=== PATIENT | female | born 1965 | race American Indian/Alaskan Native ===

== ENCOUNTER 2020-09-14 09:34 | Emergency (ER) | payer SELFPAY ==
[2020-09-14 10:24] LABS: Hematocrit 39.2 % (30.3-42.9); Hemoglobin 12.7 gm/dl (10.1-14.3); Mean Corpuscular HGB Conc 32 % (30-34); Mean Corpuscular Volume 82 fl (79-97); Platelet Count 362 K/mm3 (140-440); Red Blood Count 4.79 M/mm3 (3.65-5.03)
[2020-09-14 10:39] LABS: Bilirubin,Urine NEG (Negative); Blood,Urine NEG (Negative); Color,Urine Yellow (Yellow); Mucus,Urine 3+ /HPF
[2020-09-14 10:40] LABS: RBC,Urine < 1.0 /HPF (0.0-6.0)
[2020-09-14 10:41] LABS: Red Cell Distribution Width 25.7 % (13.2-15.2)
[2020-09-14 10:53] LABS: Alanine Aminotransferase 7 units/L (7-56); Albumin 4.1 g/dL (3.9-5); Blood Urea Nitrogen 12 mg/dL (7-17); Calcium 9.1 mg/dL (8.4-10.2); Hemolysis Index 3
[2020-09-14 10:54] LABS: BUN/Creatinine Ratio 20
[2020-09-14 11:30] LABS: Anisocytosis 2+; Basophils % (Manual) 0 % (0.0-1.8); Eosinophils % (Manual) 0 % (0.0-4.3); Hypochromasia 1+; Total Cells Counted 100
[2020-09-14 11:31] LABS: Platelet Estimate Consistent w Auto; Target Cells Rare
[2020-09-14] MEDS ORDERED: SODIUM CHLORIDE 0.9% 1000 ML 1,000 ML IV ONE (11:33)
[2020-09-14] MEDS ORDERED: ONDANSETRON 4 MG/2 ML INJ IV ONE (11:33)
[2020-09-14] MEDS ORDERED: MORPHINE 4 MG/1 ML INJ IV ONE ×2 (11:33→13:13)
--- NOTE | 2020-09-14 11:36 | Emergency Department Report ---
ED General Adult HPI - General Chief complaint: Abdominal Pain Stated complaint: CHRONS Time Seen by Provider: 09/14/20 11:09 Source: patient Mode of arrival: Ambulatory Limitations: No Limitations - History of Present Illness Initial comments: Patient presents to the emergency department with a chief complaint of abdominal pain that has been present for the last couple of days. Patient states she has a history of Crohn's disease and states this is very consistent with her flareups. She does endorse having some blood in her stool and also states the stool has an odor to it. Patient denies any chest pain, shortness breath, headache. -: Sudden Location: abdomen Radiation: non-radiation Severity scale (0 -10): 7 Quality: stabbing Consistency: constant Improves with: none Worsens with: none Associated Symptoms: denies other symptoms Treatments Prior to Arrival: none - Related Data Previous Rx's Medication Instructions Recorded Last Taken Type Amoxicillin/Potassium Clav 1 each PO BID #14 tablet 09/14/20 Unknown Rx [Augmentin 875-125 Tablet] HYDROcodone/APAP 7.5-325 [Kohler 1 each PO Q6HR PRN #15 tablet 09/14/20 Unknown Rx 7.5/325] Promethazine [Phenergan TAB] 25 mg PO Q6HR PRN #20 tab 09/14/20 Unknown Rx Allergies Allergy/AdvReac Type Severity Reaction Status Date / Time hydromorphone [From Dilaudid] Allergy Unknown Verified 09/14/20 09:39 ketorolac [From Toradol] Allergy Unknown Verified 09/14/20 09:39 Sulfa (Sulfonamide Allergy Unknown Verified 09/14/20 09:39 Antibiotics) ED Review of Systems ROS: Stated complaint: CHRONS Other details as noted in HPI Comment: All other systems reviewed and negative Constitutional: denies: chills, fever Eyes: denies: eye pain, eye discharge, vision change ENT: denies: ear pain, throat pain Respiratory: denies: cough, shortness of breath, wheezing Cardiovascular: denies: chest pain, palpitations Endocrine: no symptoms reported Gastrointestinal: abdominal pain. denies: nausea, diarrhea Genitourinary: denies: urgency, dysuria, discharge Musculoskeletal: denies: back pain, joint swelling, arthralgia Skin: denies: rash, lesions Neurological: denies: headache, weakness, paresthesias Psychiatric: denies: anxiety, depression Hematological/Lymphatic: denies: easy bleeding, easy bruising ED Past Medical Hx - Past Medical History Previous Medical History?: Yes Hx Hypertension: Yes Additional medical history: Crohn's disease - Surgical History Past Surgical History?: No - Social History Smoking Status: Former Smoker - Medications Home Medications: Home Medications Medication Instructions Recorded Confirmed Last Taken Type Amoxicillin/Potassium Clav 1 each PO BID #14 tablet 09/14/20 Unknown Rx [Augmentin 875-125 Tablet] HYDROcodone/APAP 7.5-325 [Kohler 1 each PO Q6HR PRN #15 tablet 09/14/20 Unknown Rx 7.5/325] Promethazine [Phenergan TAB] 25 mg PO Q6HR PRN #20 tab 09/14/20 Unknown Rx ED Physical Exam - General Limitations: No Limitations General appearance: alert, in no apparent distress - Head Head exam: Present: atraumatic, normocephalic - Eye Eye exam: Present: normal appearance, PERRL, EOMI - ENT ENT exam: Present: mucous membranes moist - Neck Neck exam: Present: normal inspection - Respiratory Respiratory exam: Present: normal lung sounds bilaterally. Absent: respiratory distress - Cardiovascular Cardiovascular Exam: Present: regular rate, normal rhythm. Absent: systolic murmur, diastolic murmur, rubs, gallop - GI/Abdominal GI/Abdominal exam: Present: soft, normal bowel sounds. Absent: distended, tenderness - Extremities Exam Extremities exam: Present: normal inspection - Back Exam Back exam: Present: normal inspection - Neurological Exam Neurological exam: Present: alert, oriented X3, CN II-XII intact. Absent: motor sensory deficit - Psychiatric Psychiatric exam: Present: normal affect, normal mood - Skin Skin exam: Present: warm, dry, intact, normal color. Absent: rash ED Course Vital Signs 09/14/20 09/14/20 09:39 11:00 Temperature 98.0 F Pulse Rate 115 H Respiratory 18 Rate Blood Pressure 144/106 Blood Pressure 160/97 [Right] O2 Sat by Pulse 98 Oximetry ED Medical Decision Making - Lab Data Result diagrams: 09/14/20 10:10 09/14/20 10:10 Lab Results 09/14/20 09/14/20 09/14/20 Range/Units 10:10 10:10 Unknown WBC 12.3 H (4.5-11.0) K/mm3 RBC 4.79 (3.65-5.03) M/mm3 Hgb 12.7 (10.1-14.3) gm/dl Hct 39.2 (30.3-42.9) % MCV 82 (79-97) fl MCH 27 L (28-32) pg MCHC 32 (30-34) % RDW 25.7 H (13.2-15.2) % Plt Count 362 (140-440) K/mm3 Add Manual Diff Complete Total Counted 100 Seg Neuts % (Manual) 87.0 H (40.0-70.0) % Band Neutrophils % 8.0 % Lymphocytes % (Manual) 1.0 L (13.4-35.0) % Reactive Lymphs % (Man) 0 % Monocytes % (Manual) 4.0 (0.0-7.3) % Eosinophils % (Manual) 0 (0.0-4.3) % Basophils % (Manual) 0 (0.0-1.8) % Metamyelocytes % 0 % Myelocytes % 0 % Promyelocytes % 0 % Blast Cells % 0 % Nucleated RBC % Not Reportable Seg Neutrophils # Man 10.7 H (1.8-7.7) K/mm3 Band Neutrophils # 1.0 K/mm3 Lymphocytes # (Manual) 0.1 L (1.2-5.4) K/mm3 Abs React Lymphs (Man) 0.0 K/mm3 Monocytes # (Manual) 0.5 (0.0-0.8) K/mm3 Eosinophils # (Manual) 0.0 (0.0-0.4) K/mm3 Basophils # (Manual) 0.0 (0.0-0.1) K/mm3 Metamyelocytes # 0.0 K/mm3 Myelocytes # 0.0 K/mm3 Promyelocytes # 0.0 K/mm3 Blast Cells # 0.0 K/mm3 WBC Morphology Not Reportable Hypersegmented Neuts Not Reportable Hyposegmented Neuts Not Reportable Hypogranular Neuts Not Reportable Smudge Cells Not Reportable Toxic Granulation Not Reportable Toxic Vacuolation Not Reportable Dohle Bodies Not Reportable Pelger-Huet Anomaly Not Reportable Rey Rods Not Reportable Platelet Estimate Consistent w auto Clumped Platelets Not Reportable Plt Clumps, EDTA Not Reportable Large Platelets Not Reportable Giant Platelets Not Reportable Platelet Satelliting Not Reportable Plt Morphology Comment Not Reportable RBC Morphology Not Reportable Dimorphic RBCs Not Reportable Polychromasia Not Reportable Hypochromasia 1+ Poikilocytosis Not Reportable Anisocytosis 2+ Microcytosis 1+ Macrocytosis Not Reportable Spherocytes Not Reportable Pappenheimer Bodies Not Reportable Sickle Cells Not Reportable Target Cells Rare Tear Drop Cells Not Reportable Ovalocytes Not Reportable Helmet Cells Not Reportable Lopez-[place] Bodies Not Reportable [place] Rings Not Reportable Ela Cells Not Reportable Bite Cells Not Reportable Crenated Cell Not Reportable Elliptocytes Not Reportable Acanthocytes (Spur) Not Reportable Rouleaux Not Reportable Hemoglobin C Crystals Not Reportable Schistocytes Not Reportable Malaria parasites Not Reportable Segun Bodies Not Reportable Hem Pathologist Commnt No Sodium 139 (137-145) mmol/L Potassium 3.5 L (3.6-5.0) mmol/L Chloride 102.5 (98-107) mmol/L Carbon Dioxide 20 L (22-30) mmol/L Anion Gap 20 mmol/L BUN 12 (7-17) mg/dL Creatinine 0.6 (0.6-1.2) mg/dL Estimated GFR > 60 ml/min BUN/Creatinine Ratio 20 % Glucose 142 H (65-100) mg/dL Calcium 9.1 (8.4-10.2) mg/dL Total Bilirubin 0.20 (0.1-1.2) mg/dL AST 10 (5-40) units/L ALT 7 (7-56) units/L Alkaline Phosphatase 85 (35-129) units/L Total Protein 7.7 (6.3-8.2) g/dL Albumin 4.1 (3.9-5) g/dL Albumin/Globulin Ratio 1.1 % Urine Color Yellow (Yellow) Urine Turbidity Clear (Clear) Urine pH 5.0 (5.0-7.0) Ur Specific Gray 1.028 (1.003-1.030) Urine Protein 30 mg/dl (Negative) mg/dL Urine Glucose (UA) Neg (Negative) mg/dL Urine Ketones Neg (Negative) mg/dL Urine Blood Neg (Negative) Urine Nitrite Neg (Negative) Urine Bilirubin Neg (Negative) Urine Urobilinogen 2.0 (<2.0) mg/dL Ur Leukocyte Esterase Neg (Negative) Urine WBC (Auto) 2.0 (0.0-6.0) /HPF Urine RBC (Auto) < 1.0 (0.0-6.0) /HPF U Epithel Cells (Auto) 2.0 (0-13.0) /HPF Urine Mucus 3+ /HPF - Medical Decision Making The patient states she is allergic to Dilaudid but has had morphine in the past without issue and states that is what she normally gets for her Crohn's flareups. Discussed CT of abdomen but the patient states she has had some many CTs in the past and will rather not have a CT done Critical care attestation.: If time is entered above; I have spent that time in minutes in the direct care of this critically ill patient, excluding procedure time. ED Disposition Clinical Impression: Abdominal pain Disposition: DC-01 TO HOME OR SELFCARE Is pt being admited?: No Does the pt Need Aspirin: No Condition: Stable Instructions: Abdominal Pain (ED) Additional Instructions: return if worse Referrals: PRIMARY MD NAREN [Primary Care Provider] - 3-5 Days BARRETT ROJAS MD [Staff Physician] - 3-5 Days Time of Disposition: 13:33
[2020-09-14] MEDS ORDERED: diphenhydrAMINE 50 MG/ML VIAL ONE (11:56)
--- NOTE | 2020-09-14 12:52 | XRay Report ---
CHEST / ABDOMEN 2 VIEWS INDICATION / CLINICAL INFORMATION: abdominal pain. COMPARISON: None available. FINDINGS: SUPPORT DEVICES: None. HEART / MEDIASTINUM: No significant abnormality. LUNGS / PLEURA: No significant pulmonary or pleural abnormality. No pneumothorax. TUBES / LINES: None. BOWEL GAS PATTERN: No obstructive gas pattern. Constipation is present. FREE AIR / EXTRALUMINAL GAS: None seen. ADDITIONAL FINDINGS: No significant additional findings. IMPRESSION: 1. No acute findings. Signer Name: Miah Pablo MD Signed: 09/14/2020 12:47 PM Workstation Name: [id number]
[2020-09-14] MEDS ORDERED: diphenhydrAMINE 50 MG/ML VIAL IV ONE (14:19)
[2020-09-14 14:52] VITALS: BP 130/89
== END 2020-09-14 14:53 | disposition home or self-care (01) ==
LOC: ED 09:34
DX: R10.9 Unspecified abdominal pain (principal); I10 Essential (primary) hypertension; K50.90 Crohn's disease, unspecified, without complications; Z87.891 Personal history of nicotine dependence; Z88.6 Allergy status to analgesic agent; Z88.8 Allergy status to other drugs, medicaments and biological substances
CPT/HCPCS: 36415; 74022; 80053; 81001; 85007; 85025; 96361; 96374; 96375; 99284; J1200; J2270; J2405; J7030

== ENCOUNTER 2020-09-20 04:24 | Observation (INO) | payer MEDICAID, OTHER ==
[2020-09-20 06:13] LABS: Hematocrit 39.8 % (30.3-42.9); Hemoglobin 12.9 gm/dl (10.1-14.3); Mean Corpuscular HGB Conc 32 % (30-34); Mean Corpuscular Volume 83 fl (79-97); Platelet Count 441 K/mm3 (140-440); Red Blood Count 4.83 M/mm3 (3.65-5.03)
[2020-09-20 06:16] LABS: Red Cell Distribution Width 24.2 % (13.2-15.2)
--- NOTE | 2020-09-20 06:25 | XRay Report ---
CHEST 1 VIEW 09/20/2020 5:17 AM INDICATION / CLINICAL INFORMATION: Chest Pain. Crohn's flareup. Shortness of breath. COMPARISON: 09/14/20 FINDINGS: SUPPORT DEVICES: None. HEART / MEDIASTINUM: No significant abnormality. LUNGS / PLEURA: Suboptimal inspiration with low lung volumes and mild bibasilar atelectasis. No pneum othorax. ADDITIONAL FINDINGS: No significant additional findings. IMPRESSION: 1. Low lung volumes with bibasilar atelectasis. Signer Name: Antonio Heard MD Signed: 09/20/2020 6:20 AM Workstation Name: [id number]
[2020-09-20 08:05] LABS: Alanine Aminotransferase 7 units/L (7-56); Albumin 3.1 g/dL (3.9-5); Blood Urea Nitrogen 13 mg/dL (7-17); Calcium 8.6 mg/dL (8.4-10.2); Hemolysis Index 73
[2020-09-20 08:06] LABS: BUN/Creatinine Ratio 19
[2020-09-20] MEDS ORDERED: SODIUM CHLORIDE 0.9% 1000 ML 2,000 ML IV ONE (09:00)
[2020-09-20] MEDS ORDERED: POTASSIUM CHLORIDE ER 20 MEQ TAB PO ONE (09:00)
[2020-09-20] MEDS ORDERED: ONDANSETRON 4 MG/2 ML INJ IV ONE (09:00)
[2020-09-20] MEDS ORDERED: diphenhydrAMINE 50 MG/ML VIAL IV ONE (09:00)
[2020-09-20] MEDS ORDERED: MORPHINE 4 MG/1 ML INJ IV ONE ×2 (09:00→10:51)
--- NOTE | 2020-09-20 09:01 | Emergency Department Report ---
ED General Adult HPI - General Chief complaint: Abdominal Pain Stated complaint: ABDOMINAL PAIN PUI?: No Time Seen by Provider: 09/20/20 08:24 Source: patient, RN notes reviewed, old records reviewed Mode of arrival: Ambulatory Limitations: No Limitations - History of Present Illness Initial comments: The patient was evaluated in the emergency department for symptoms described in the history of present illness. He/she was evaluated in the context of the global COVID-19 pandemic, which necessitated consideration that the patient might be at risk for infection with the virus that causes COVID-19. Institutional protocols and algorithms that pertain to the evaluation of patients at risk for COVID-19 are in a state of rapid change based on information released by regulatory bodies including the CDC and federal and state organizations. These policies and algorithms were followed during the patient's care in the emergency department. Please note that these policies, procedures and recommendations changed on a rapid basis. Patient is a 55-year-old female. She is not known to myself previously. She moved here from [place] 1 month ago. She reports a history of Crohn's disease. She is not currently on steroids or immune modulating medication. She used to live near [facility]. While in [place], she had been hospitalized at [facility], [facility], and [facility]. She presents to the ER today with complaints of diffuse abdominal pain. Symptoms present for the past 7 days. No fever. Positive nausea and vomiting. Positive bloody stool. No dysuria. No headache or neck pain. No cough. Positive chest tightness for 2 days. No DVT or pulmonary embolism risk factors. Last colonoscopy was 2 years ago. This was in [place]. She is not quite sure of the results. Positive diffuse myalgias and body aches. Patient seen in this hospital 6 days ago for similar symptoms, discharged with pain medication, nausea medication, and antibiotics. Patient reports worsening symptoms. Not able to keep anything down, not able to obtain close outpatient follow-up. -: Gradual, days(s) Location: abdomen Quality: aching Consistency: constant Improves with: medication, rest Worsens with: movement - Related Data Previous Rx's Medication Instructions Recorded Last Taken Type Amoxicillin/Potassium Clav 1 each PO BID #14 tablet 09/14/20 Unknown Rx [Augmentin 875-125 Tablet] HYDROcodone/APAP 7.5-325 [[place] 1 each PO Q6HR PRN #15 tablet 09/14/20 Unknown Rx 7.5/325] Promethazine [Phenergan TAB] 25 mg PO Q6HR PRN #20 tab 09/14/20 Unknown Rx Allergies Allergy/AdvReac Type Severity Reaction Status Date / Time hydromorphone [From Dilaudid] Allergy Unknown Verified 09/14/20 09:39 ketorolac [From Toradol] Allergy Unknown Verified 09/14/20 09:39 Sulfa (Sulfonamide Allergy Unknown Verified 09/14/20 09:39 Antibiotics) ED Review of Systems ROS: Stated complaint: ABDOMINAL PAIN Other details as noted in HPI Constitutional: malaise, weakness Eyes: denies: eye discharge ENT: denies: epistaxis Respiratory: denies: wheezing Cardiovascular: denies: palpitations, syncope Gastrointestinal: abdominal pain, nausea, vomiting, hematochezia. denies: constipation, melena Genitourinary: denies: dysuria Musculoskeletal: myalgia Skin: denies: lesions Neurological: weakness Psychiatric: anxiety Hematological/Lymphatic: denies: easy bleeding ED Past Medical Hx - Past Medical History Previous Medical History?: Yes Hx Hypertension: Yes Additional medical history: Crohn's disease - Surgical History Past Surgical History?: Yes Additional Surgical History: Tonsils, CSection, Knee - Social History Smoking Status: Never Smoker - Medications Home Medications: Home Medications Medication Instructions Recorded Confirmed Last Taken Type Amoxicillin/Potassium Clav 1 each PO BID #14 tablet 09/14/20 Unknown Rx [Augmentin 875-125 Tablet] HYDROcodone/APAP 7.5-325 [[place] 1 each PO Q6HR PRN #15 tablet 09/14/20 Unknown Rx 7.5/325] Promethazine [Phenergan TAB] 25 mg PO Q6HR PRN #20 tab 09/14/20 Unknown Rx ED Physical Exam - General Limitations: No Limitations General appearance: alert, anxious, in distress, obese - Head Head exam: Present: atraumatic, normocephalic - Eye Eye exam: Present: normal appearance, EOMI. Absent: nystagmus - ENT ENT exam: Present: normal exam, normal orophraynx, mucous membranes moist, normal external ear exam - Neck Neck exam: Present: normal inspection, full ROM. Absent: tenderness, meningismus - Respiratory Respiratory exam: Present: normal lung sounds bilaterally. Absent: respiratory distress, wheezes, rales, rhonchi, stridor, decreased breath sounds - Cardiovascular Cardiovascular Exam: Present: normal rhythm, tachycardia, normal heart sounds. Absent: systolic murmur, diastolic murmur, rubs, gallop - GI/Abdominal GI/Abdominal exam: Present: soft, tenderness. Absent: distended, guarding, rebound, rigid, pulsatile mass - Rectal Rectal exam: Present: normal inspection, normal rectal tone, heme (+) stool, tenderness, other (Anal fissure noted at 6:00. Chaperoned by nurse Hellen Velasquez. Brown/bloody stool.). Absent: black stool, bloody stool - Extremities Exam Extremities exam: Present: normal inspection, full ROM, other (2+ pulses noted in the bilateral upper and lower extremities. There is no palpable cord. negative Homans sign. Muscular compartments are soft. The pelvis is stable.). Absent: pedal edema, calf tenderness - Back Exam Back exam: Present: normal inspection, full ROM. Absent: tenderness, CVA tenderness (R), CVA tenderness (L), paraspinal tenderness, vertebral tenderness - Neurological Exam Neurological exam: Present: alert, other (No facial droop. Tongue midline. Extraocular movements intact bilaterally. Facial sensation intact to light touch in V1, V2, V3 distribution bilaterally. 5 and a 5 strength in 4 extremities. Sensation intact to light touch in 4 extremities.) - Psychiatric Psychiatric exam: Present: anxious - Skin Skin exam: Present: warm, dry, intact, normal color. Absent: rash ED Course Vital Signs 09/20/20 09/20/20 09/20/20 04:52 09:01 10:31 Temperature 98.6 F Pulse Rate 119 H 110 H 103 H Respiratory 18 28 H 29 H Rate Blood Pressure 145/93 119/82 199/97 O2 Sat by Pulse 96 96 95 Oximetry 09/20/20 09/20/20 09/20/20 10:41 10:51 11:00 Temperature Pulse Rate 103 H 103 H 105 H Respiratory 29 H 10 L 24 Rate Blood Pressure 199/97 199/97 199/97 O2 Sat by Pulse 95 96 96 Oximetry 09/20/20 09/20/20 09/20/20 11:11 11:21 11:31 Temperature Pulse Rate 102 H 102 H 105 H Respiratory 22 25 H 18 Rate Blood Pressure 190/97 190/97 190/97 O2 Sat by Pulse 94 95 Oximetry - EJ/Peripheral Line Neck L Time Out Performed: Yes Indications: nurses unable to establis Skin Cleansed in Sterile Fashion: Yes Size: 20 Dressing Placed: Tegaderm Patient Tolerated Procedure: well ED Medical Decision Making - Lab Data Result diagrams: 09/20/20 05:32 09/20/20 06:48 Vital Signs 09/20/20 09/20/20 09/20/20 04:52 09:01 10:31 Temperature 98.6 F Pulse Rate 119 H 110 H 103 H Respiratory 18 28 H 29 H Rate Blood Pressure 145/93 119/82 199/97 O2 Sat by Pulse 96 96 95 Oximetry Lab Results 09/20/20 09/20/20 09/20/20 Range/Units 05:32 06:48 06:48 WBC 15.0 H (4.5-11.0) K/mm3 RBC 4.83 (3.65-5.03) M/mm3 Hgb 12.9 (10.1-14.3) gm/dl Hct 39.8 (30.3-42.9) % MCV 83 (79-97) fl MCH 27 L (28-32) pg MCHC 32 (30-34) % RDW 24.2 H (13.2-15.2) % Plt Count 441 H (140-440) K/mm3 Add Manual Diff Complete Total Counted 100 Seg Neuts % (Manual) 72.0 H (40.0-70.0) % Band Neutrophils % 2.0 % Lymphocytes % (Manual) 13.0 L (13.4-35.0) % Reactive Lymphs % (Man) 0 % Monocytes % (Manual) 10.0 H (0.0-7.3) % Eosinophils % (Manual) 1.0 (0.0-4.3) % Basophils % (Manual) 0 (0.0-1.8) % Metamyelocytes % 2.0 % Myelocytes % 0 % Promyelocytes % 0 % Blast Cells % 0 % Nucleated RBC % 1.0 H (0.0-0.9) % Seg Neutrophils # Man 10.8 H (1.8-7.7) K/mm3 Band Neutrophils # 0.3 K/mm3 Lymphocytes # (Manual) 2.0 (1.2-5.4) K/mm3 Abs React Lymphs (Man) 0.0 K/mm3 Monocytes # (Manual) 1.5 H (0.0-0.8) K/mm3 Eosinophils # (Manual) 0.2 (0.0-0.4) K/mm3 Basophils # (Manual) 0.0 (0.0-0.1) K/mm3 Metamyelocytes # 0.3 K/mm3 Myelocytes # 0.0 K/mm3 Promyelocytes # 0.0 K/mm3 Blast Cells # 0.0 K/mm3 WBC Morphology Not Reportable Hypersegmented Neuts Not Reportable Hyposegmented Neuts Not Reportable Hypogranular Neuts Not Reportable Smudge Cells Not Reportable Toxic Granulation Not Reportable Toxic Vacuolation Not Reportable Dohle Bodies Not Reportable Pelger-Huet Anomaly Not Reportable Rey Rods Not Reportable Platelet Estimate Consistent w auto Clumped Platelets Not Reportable Plt Clumps, EDTA Not Reportable Large Platelets Not Reportable Giant Platelets Not Reportable Platelet Satelliting Not Reportable Plt Morphology Comment Not Reportable RBC Morphology Not Reportable Dimorphic RBCs Not Reportable Polychromasia Not Reportable Hypochromasia 1+ Poikilocytosis Not Reportable Anisocytosis 2+ Microcytosis Not Reportable Macrocytosis Not Reportable Spherocytes Not Reportable Pappenheimer Bodies Not Reportable Sickle Cells Not Reportable Target Cells Few Tear Drop Cells Not Reportable Ovalocytes Not Reportable Helmet Cells Not Reportable [place] Bodies Not Reportable [place] Rings Not Reportable Ela Cells Not Reportable Bite Cells Not Reportable Crenated Cell Not Reportable Elliptocytes Not Reportable Acanthocytes (Spur) Not Reportable Rouleaux Not Reportable Hemoglobin C Crystals Not Reportable Schistocytes Not Reportable Malaria parasites Not Reportable Segun Bodies Not Reportable Hem Pathologist Commnt No Sodium 134 L (137-145) mmol/L Potassium 3.3 L (3.6-5.0) mmol/L Chloride 94.0 L (98-107) mmol/L Carbon Dioxide 27 (22-30) mmol/L Anion Gap 16 mmol/L BUN 13 (7-17) mg/dL Creatinine 0.7 (0.6-1.2) mg/dL Estimated GFR > 60 ml/min BUN/Creatinine Ratio 19 % Glucose 135 H (65-100) mg/dL Calcium 8.6 (8.4-10.2) mg/dL Magnesium 1.90 (1.7-2.3) mg/dL Total Bilirubin 0.20 (0.1-1.2) mg/dL AST 13 (5-40) units/L ALT 7 (7-56) units/L Alkaline Phosphatase 69 (35-129) units/L Total Creatine Kinase 41 (30-135) units/L Troponin T < 0.010 (0.00-0.029) ng/mL Total Protein 7.2 (6.3-8.2) g/dL Albumin 3.1 L (3.9-5) g/dL Albumin/Globulin Ratio 0.8 % Lipase 28 (13-60) units/L Urine Color (Yellow) Urine Turbidity (Clear) Urine pH (5.0-7.0) Ur Specific [place] (1.003-1.030) Urine Protein (Negative) mg/dL Urine Glucose (UA) (Negative) mg/dL Urine Ketones (Negative) mg/dL Urine Blood (Negative) Urine Nitrite (Negative) Urine Bilirubin (Negative) Urine Urobilinogen (<2.0) mg/dL Ur Leukocyte Esterase (Negative) Urine WBC (Auto) (0.0-6.0) /HPF Urine RBC (Auto) (0.0-6.0) /HPF U Epithel Cells (Auto) (0-13.0) /HPF Urine Mucus /HPF 09/20/ Range/Units 08:59 WBC (4.5-11.0) K/mm3 RBC (3.65-5.03) M/mm3 Hgb (10.1-14.3) gm/dl Hct (30.3-42.9) % MCV (79-97) fl MCH (28-32) pg MCHC (30-34) % RDW (13.2-15.2) % Plt Count (140-440) K/mm3 Add Manual Diff Total Counted Seg Neuts % (Manual) (40.0-70.0) % Band Neutrophils % % Lymphocytes % (Manual) (13.4-35.0) % Reactive Lymphs % (Man) % Monocytes % (Manual) (0.0-7.3) % Eosinophils % (Manual) (0.0-4.3) % Basophils % (Manual) (0.0-1.8) % Metamyelocytes % % Myelocytes % % Promyelocytes % % Blast Cells % % Nucleated RBC % (0.0-0.9) % Seg Neutrophils # Man (1.8-7.7) K/mm3 Band Neutrophils # K/mm3 Lymphocytes # (Manual) (1.2-5.4) K/mm3 Abs React Lymphs (Man) K/mm3 Monocytes # (Manual) (0.0-0.8) K/mm3 Eosinophils # (Manual) (0.0-0.4) K/mm3 Basophils # (Manual) (0.0-0.1) K/mm3 Metamyelocytes # K/mm3 Myelocytes # K/mm3 Promyelocytes # K/mm3 Blast Cells # K/mm3 WBC Morphology Hypersegmented Neuts Hyposegmented Neuts Hypogranular Neuts Smudge Cells Toxic Granulation Toxic Vacuolation Dohle Bodies Pelger-Huet Anomaly Rey Rods Platelet Estimate Clumped Platelets Plt Clumps, EDTA Large Platelets Giant Platelets Platelet Satelliting Plt Morphology Comment RBC Morphology Dimorphic RBCs Polychromasia Hypochromasia Poikilocytosis Anisocytosis Microcytosis Macrocytosis Spherocytes Pappenheimer Bodies Sickle Cells Target Cells Tear Drop Cells Ovalocytes Helmet Cells Lopez-[place] Bodies [place] Rings Ela Cells Bite Cells Crenated Cell Elliptocytes Acanthocytes (Spur) Rouleaux Hemoglobin C Crystals Schistocytes Malaria parasites Segun Bodies Hem Pathologist Commnt Sodium (137-145) mmol/L Potassium (3.6-5.0) mmol/L Chloride (98-107) mmol/L Carbon Dioxide (22-30) mmol/L Anion Gap mmol/L BUN (7-17) mg/dL Creatinine (0.6-1.2) mg/dL Estimated GFR ml/min BUN/Creatinine Ratio % Glucose (65-100) mg/dL Calcium (8.4-10.2) mg/dL Magnesium (1.7-2.3) mg/dL Total Bilirubin (0.1-1.2) mg/dL AST (5-40) units/L ALT (7-56) units/L Alkaline Phosphatase (35-129) units/L Total Creatine Kinase (30-135) units/L Troponin T (0.00-0.029) ng/mL Total Protein (6.3-8.2) g/dL Albumin (3.9-5) g/dL Albumin/Globulin Ratio % Lipase (13-60) units/L Urine Color Yellow (Yellow) Urine Turbidity Clear (Clear) Urine pH 5.0 (5.0-7.0) Ur Specific [place] 1.027 (1.003-1.030) Urine Protein 30 mg/dl (Negative) mg/dL Urine Glucose (UA) Neg (Negative) mg/dL Urine Ketones Neg (Negative) mg/dL Urine Blood Neg (Negative) Urine Nitrite Neg (Negative) Urine Bilirubin Neg (Negative) Urine Urobilinogen < 2.0 (<2.0) mg/dL Ur Leukocyte Esterase Tr (Negative) Urine WBC (Auto) 1.0 (0.0-6.0) /HPF Urine RBC (Auto) < 1.0 (0.0-6.0) /HPF U Epithel Cells (Auto) 1.0 (0-13.0) /HPF Urine Mucus 1+ /HPF - EKG Data -: EKG Interpreted by Ga EKG shows normal: sinus rhythm Rate: tachycardia - EKG Data When compared to previous EKG there are: previous EKG unavailable 09/20/20 10:36 Sinus rhythm, tachycardia, 115 bpm, normal axis, QTC 495 ms, borderline left ventricular hypertrophy and atrial enlargement. This EKG is not a STEMI. There is no prior EKG available for comparison. - Radiology Data Radiology results: pending, report reviewed, image reviewed CT ABDOMEN AND PELVIS WITH IV CONTRAST INDICATION: Abdominal pain, history of Crohn's disease.. COMPARISON: None available. TECHNIQUE: All CT scans at this facility use dose modulation, automated exposure control, iterative reconstruction or weight based dosing, when appropriate, to reduce radiation dose to as low as reasonably achievable. FINDINGS: Lung Bases: No significant abnormality. Skeletal System: No acute abnormality. ABDOMEN: Liver: No significant abnormality. Gallbladder: No significant abnormality. Bile Ducts: No significant abnormality. Pancreas: No significant abnormality. Spleen: No significant abnormality. Adrenals: No significant abnormality. Right Kidney: No significant abnormality. Left Kidney: No significant abnormality. Upper GI tract: No significant abnormality. Lymph Nodes: No significant adenopathy. Aorta: No significant abnormality. Additional Findings: No significant abnormality. PELVIS: Colon: There is inflammation involving the sigmoid colon, descending colon, and splenic flexure. Urinary Bladder and Distal Ureters: No significant abnormality. Appendix: Not visualized. Lymph Nodes: No significant adenopathy. Additional Findings: There is mild inflammation at the terminal ileum. There is trace free fluid in the pelvis. IMPRESSION: 1. Mild terminal ileitis and distal colitis suggestive of active Crohn's disease. There is trace free fluid in the pelvis. No abscess. 2. Incidental findings, as above. Signer Name: Adam Aguilar MD Signed: 09/20/2020 9:13 AM Workstation Name: [id number] - Medical Decision Making Differential diagnosis, including but not limited to: Dehydration, Crohn's disease flare/exacerbation Assessment and plan: 55-year-old female, with probable Crohn's disease flare/exacerbation. This is her second visit in 6 days. She reports compliance with her medications that were recently prescribed for her. She does not have a local primary care doctor or safety associate that she is able to follow-up with in a safe and timely fashion. She meets criteria for systemic inflammatory response syndrome, manifested by leukocytosis, tachycardia, and tachypnea. On exam, diffusely tender, tachycardic, appears very uncomfortable, brown stool with anal fissure, guaiac positive, trace blood. Discussed with gastroenterology on-call, Dr. Jaleel Garcia. I discussed the patient's history, physical, pertinent laboratory studies and imaging findings. He recommends Flagyl empirically, steroids, and indicates that his group will see the patient in consultation. Contacted the hospital team, and hospital physician, Dr Kashmir Killian., Will admit patient to the medical service. Discussed plan of care for admission with the patient, who verbalized understanding, and is amenable to this plan of care. Leukocytosis is likely a stress reaction, likely secondary to underlying Crohn's disease flare/exacerbation. Tachycardia and tachypnea also likely secondary to the aforementioned. Patient denies DVT and pulmonary embolism risk factors, and I find her to be low risk by Wells criteria for pulmonary embolism at this time. Critical care attestation.: If time is entered above; I have spent that time in minutes in the direct care of this critically ill patient, excluding procedure time. ED Disposition Clinical Impression: SIRS (systemic inflammatory response syndrome), Hypokalemia Acute Crohn's disease Qualifiers: Digestive disease complication type: without complication Qualified Code(s): K50.90 - Crohn's disease, unspecified, without complications Disposition: DC-09 OP ADMIT IP TO THIS HOSP Is pt being admited?: Yes Condition: Serious
[2020-09-20 09:12] LABS: Bilirubin,Urine NEG (Negative); Blood,Urine NEG (Negative); Color,Urine Yellow (Yellow); Mucus,Urine 1+ /HPF; Urobilinogen,Urine < 2.0 mg/dL (<2.0)
[2020-09-20 09:24] LABS: RBC,Urine < 1.0 /HPF (0.0-6.0)
[2020-09-20 09:38] LABS: Anisocytosis 2+; Band Neutrophils # (Manual) 0.3 K/mm3; Basophils % (Manual) 0 % (0.0-1.8); Hypochromasia 1+; Platelet Estimate Consistent w Auto; Target Cells Few; Total Cells Counted 100
--- NOTE | 2020-09-20 10:18 | Cat Scan Report ---
CT ABDOMEN AND PELVIS WITH IV CONTRAST INDICATION: Abdominal pain, history of Crohn's disease.. COMPARISON: None available. TECHNIQUE: All CT scans at this facility use dose modulation, automated exposure control, iterative reconstructi on or weight based dosing, when appropriate, to reduce radiation dose to as low as reasonably achieva ble. FINDINGS: Lung Bases: No significant abnormality. Skeletal System: No acute abnormality. ABDOMEN: Liver: No significant abnormality. Gallbladder: No significant abnormality. Bile Ducts: No significant abnormality. Pancreas: No significant abnormality. Spleen: No significant abnormality. Adrenals: No significant abnormality. Right Kidney: No significant abnormality. Left Kidney: No significant abnormality. Upper GI tract: No significant abnormality. Lymph Nodes: No significant adenopathy. Aorta: No significant abnormality. Additional Findings: No significant abnormality. PELVIS: Colon: There is inflammation involving the sigmoid colon, descending colon, and splenic flexure. Urinary Bladder and Distal Ureters: No significant abnormality. Appendix: Not visualized. Lymph Nodes: No significant adenopathy. Additional Findings: There is mild inflammation at the terminal ileum. There is trace free fluid in t he pelvis. IMPRESSION: 1. Mild terminal ileitis and distal colitis suggestive of active Crohn's disease. There is trace cesar e fluid in the pelvis. No abscess. 2. Incidental findings, as above. Signer Name: Adam Aguilar MD Signed: 09/20/2020 10:13 AM Workstation Name: [id number]
[2020-09-20] MEDS ORDERED: methylPREDNISolone Sod Succinate 125 MG/2 ML INJ IV ONE (10:31)
[2020-09-20] MEDS ORDERED: metroNIDAZOLE/NS 500 MG/100 ML 500 MG/100 ML BAG IV ONE (10:31)
[2020-09-20] MEDS ORDERED: SODIUM CHLORIDE 0.9% 500 ML 500 ML IV ONE (10:32)
[2020-09-20] MEDS ORDERED: ALUM-MAG HYDROXIDE-SIMETHICONE 200-200-20MG/5ML ORAL LIQD 30 ML PO PRN (11:29)
[2020-09-20] MEDS ORDERED: NALOXONE 0.4 MG/1 ML INJ IV PRN (11:29)
[2020-09-20] MEDS ORDERED: ACETAMINOPHEN 325 MG TAB PO PRN (11:29)
[2020-09-20] MEDS ORDERED: ONDANSETRON 4 MG/2 ML INJ IV PRN (11:29)
--- NOTE | 2020-09-20 11:40 | History and Physical Report ---
History of Present Illness Date of admission: 09/20/20 10:40 History of present illness: This is a 55-year-old female with hypertension, Crohn's, and anxiety who presents to the emergency department on 09/20 with complaints of diffuse abdominal pain, myalgia and body aches (rated at 10/10 which is described as an ache) for about 2 weeks, nausea and diarrhea for about a week and midsternal chest tightness intermittently x 2 days with no aggravating or relieving factors rated at a 5/10. She states she gets nauseous when she needs to have a BM and she is having liquid diarrhea for the past week. She states her stool is dark however the patient takes iron daily. Patient states per the ED physician there was bloody streaks in her stool. Patient also has external and internal hemorrhoids. Patient lives in [facility] and has been hospitalized for Crohn's flareups in the past and she is visiting her daughter in [place] at this time. Patient was seen in the emergency department 6 days ago for similar symptoms but was discharged with pain medication, nausea medication antibiotics. She presented to the emergency department today for worsening symptoms. Patient denies any fevers, chills, hemoptysis, recent weight loss without trying, vomiting, or cough. Patient denies any sick contacts or recent exposure to known COVID-19. Patient denies any chest pain, shortness of breath, diarrhea or loss of taste/smell. Work-up in the emergency department revealed slight hyponatremia 134, hypokalemia 3.3, hypochloremia at 94, leukocytosis 15, slight thrombocytosis 441 K, urine analysis shows trace leukocyte esterase, and CT abdomen shows mild terminal ileitis and distal colitis suggestive of active Crohn's disease with trace free fluid in the pelvis and no abscess. GI was consulted in the emergency department and tests suggested steroids and Flagyl which were started. She will be admitted to the hospitalist service for an acute Crohn's flare with electrolyte derangement and urinary tract infection. Advance care planning conducted in the emergency department. Records reviewed from [place] which are requested by the ED as well as her prior visit. Past History Past Medical History: anemia, hypertension, other (Anxiety) Past Surgical History: arthroscopy, , tonsillectomy, Other (Left pinky palpitation) Social history: , Lives alone, full code. denies: smoking, alcohol abuse, prescription drug abuse, IV drug use Family history: hypertension Medications and Allergies Allergies Allergy/AdvReac Type Severity Reaction Status Date / Time hydromorphone [From Dilaudid] Allergy Unknown Verified 09/14/20 09:39 ketorolac [From Toradol] Allergy Unknown Verified 09/14/20 09:39 Sulfa (Sulfonamide Allergy Unknown Verified 09/14/20 09:39 Antibiotics) Home Medications Medication Instructions Recorded Confirmed Last Taken Type Amoxicillin/Potassium Clav 1 each PO BID #14 tablet 09/14/20 Unknown Rx [Augmentin 875-125 Tablet] HYDROcodone/APAP 7.5-325 [[place] 1 each PO Q6HR PRN #15 tablet 09/14/20 Unknown Rx 7.5/325] Promethazine [Phenergan TAB] 25 mg PO Q6HR PRN #20 tab 09/14/20 Unknown Rx Active Meds: Active Medications Acetaminophen (Tylenol) 650 mg PO Q4H PRN PRN Reason: Pain MILD(1-3)/Fever >100.5/MENA Al Hydrox/Mg Hydrox/Simethicone (Alum-Mag Hydrox-Simeth [id number]/5ml) 30 ml PO Q4H PRN PRN Reason: Indigestion Docusate Sodium (Colace) 100 mg PO BID GUANAKO Morphine Sulfate (Morphine) 2 mg IV Q4H PRN PRN Reason: Pain, Moderate (4-6) Naloxone HCl (Naloxone) 0.1 mg IV Q2MIN PRN PRN Reason: Res Rate </= 8 or 02 SAT < 92% Ondansetron HCl (Zofran) 4 mg IV Q8H PRN PRN Reason: Nausea And Vomiting Oxycodone/Acetaminophen (Percocet 5/325) 1 tab PO Q6H PRN PRN Reason: Pain, Moderate (4-6) Senna (Senokot) 8.6 mg PO Q12HR GUANAKO Sodium Chloride (Sodium Chloride Flush Syringe 10 Ml) 10 ml IV BID GUANAKO Sodium Chloride (Sodium Chloride Flush Syringe 10 Ml) 10 ml IV PRN PRN PRN Reason: LINE FLUSH Review of Systems Constitutional: weakness, no weight loss, no weight gain, no fever, no chills, no sweats, no anorexia, no fatigue, no malaise, no lethargy, no chronic headaches Ears, nose, mouth and throat: headache, no ear pain, no ear discharge, no tinnitis, no decreased hearing, no nose pain, no nasal congestion, no epistaxis, no bleeding gums, no dental pain, no dysphagia, no hoarseness, no sore throat, no post-nasal drip Cardiovascular: chest pain, palpitations, high blood pressure, no orthopnea, no rapid/irregular heart beat, no edema, no syncope, no lightheadedness, no shortness of breath, no dyspnea on exertion, no paroxysmal nocturnal dyspnea, no claudication, no leg edema Respiratory: no cough, no cough with sputum, no excessive sputum, no hemoptysis, no shortness of breath, no dyspnea on exertion, no congestion, no wheezing, no pleurisy Gastrointestinal: abdominal pain, nausea, diarrhea, no vomiting, no hematemesis, no coffee ground emesis, no BRBPR, no melena, no hematochezia, no loss of appetite, no early satiety Genitourinary Female: no pelvic pain, no flank pain, no dysuria, no urinary f requency, no urgency, no stress incontinence, no hematuria, no nocturia, no vaginal itching, no vaginal discharge, no vaginal odor Menstruation: no periods for 6 months Rectal: hemorrhoids, no pain, no incontinence, no bleeding, no itching Musculoskeletal: no neck stiffness, no neck pain, no shooting arm pain, no arm numbness/tingling, no low back pain, no shooting leg pain, no leg numbness/tingling, no redness of joints Integumentary: no rash, no pruritis, no redness, no sores, no wounds, no ja undice, no boils, no blisters Neurological: headaches, no head injury, no transient paralysis, no paralysis, no weakness, no parathesias, no numbness, no tingling, no seizures, no syncope, no tremors, no vertigo, no migraines, no tic, no convulsions, no aphasia, no change in speech, no change in mentation, no confusion, no sensory deficit, no double vision, no loss of vision, no hearing difficulties Psychiatric: anxiety, no memory loss, no change in sleep habits, no sleep disturbances, no insomnia, no hypersomnia, no change in appetite, no change in libido, no suicidal ideation, no disorientation, no hallucinations, no paranoia, no depression, no hopelessness Endocrine: palpatations, no cold intolerance, no heat intolerance, no polyphagia, no excessive thirst, no polydipsia, no polyuria, no nocturia, no excessive sweating, no flushing, no weight change, no increase in ring/shoe/hat size, no high blood sugars, no low blood sugars Hematologic/Lymphatic: no easy bruising, no easy bleeding Allergic/Immunologic: no urticaria, no allergic rhinitis, no persistent in fections, no anaphylaxis Exam - Constitutional Vitals: Temp Pulse Resp BP Pulse Ox 98.6 F 103 H 29 H 199/97 95 09/20/20 04:52 09/20/20 10:31 09/20/20 10:31 09/20/20 10:31 09/20/20 10:31 General appearance: Present: no acute distress, obese - EENT Eyes: Present: PERRL, EOM intact ENT: hearing intact, clear oral mucosa, dentition normal - Neck Neck: Present: supple, normal ROM - Respiratory Respiratory effort: normal Respiratory: bilateral: CTA - Cardiovascular Rhythm: regular Heart Sounds: Present: S1 & S2. Absent: systolic murmur, diastolic murmur - Extremities Extremities: no ischemia, pulses intact, pulses symmetrical, No edema, normal temperature, normal color, Full ROM - Abdominal General gastrointestinal: Present: soft, tender, non-distended, normal bowel so unds. Absent: distended Localized gastrointestinal: tender: diffuse - Integumentary Integumentary: Present: clear, warm, dry, erythema (to right upper chest from "tens at the chiropractor") - Musculoskeletal Musculoskeletal: strength equal bilaterally - Psychiatric Psychiatric: appropriate mood/affect, memory intact, cooperative - Neurologic Neurologic: CNII-XII intact, no focal deficits, moves all extremities - Allied Health Allied health notes reviewed: nursing HEART Score - HEART Score History: Moderately suspicious EKG: Normal Age: 45-65 Risk factors: 1-2 risk factors Troponin: Troponin T < 0.010 ng/mL (0.00-0.029) 09/20/20 06:48 Troponin: < normal limit HEART Score: 3 - Critical Actions Critical Actions: 0-3 pts:0.9-1.7%risk of adverse cardiac event.Candidate for discharge Results - Labs CBC & Chem 7: 09/20/20 05:32 09/20/20 06:48 Labs: Laboratory Last Values WBC 15.0 K/mm3 (4.5-11.0) H 09/20/20 05:32 RBC 4.83 M/mm3 (3.65-5.03) 09/20/20 05:32 Hgb 12.9 gm/dl (10.1-14.3) 09/20/20 05:32 Hct 39.8 % (30.3-42.9) 09/20/20 05:32 MCV 83 fl (79-97) 09/20/20 05:32 MCH 27 pg (28-32) L 09/20/20 05:32 MCHC 32 % (30-34) 09/20/20 05:32 RDW 24.2 % (13.2-15.2) H 09/20/20 05:32 Plt Count 441 K/mm3 (140-440) H 09/20/20 05:32 Add Manual Diff Complete 09/20/20 05:32 Total Counted 100 09/20/20 05:32 Seg Neuts % (Manual) 72.0 % (40.0-70.0) H 09/20/20 05:32 Band Neutrophils % 2.0 % 09/20/20 05:32 Lymphocytes % (Manual) 13.0 % (13.4-35.0) L 09/20/20 05:32 Reactive Lymphs % (Man) 0 % 09/20/20 05:32 Monocytes % (Manual) 10.0 % (0.0-7.3) H 09/20/20 05:32 Eosinophils % (Manual) 1.0 % (0.0-4.3) 09/20/20 05:32 Basophils % (Manual) 0 % (0.0-1.8) 09/20/20 05:32 Metamyelocytes % 2.0 % 09/20/20 05:32 Myelocytes % 0 % 09/20/20 05:32 Promyelocytes % 0 % 09/20/20 05:32 Blast Cells % 0 % 09/20/20 05:32 Nucleated RBC % 1.0 % (0.0-0.9) H 09/20/20 05:32 Seg Neutrophils # Man 10.8 K/mm3 (1.8-7.7) H 09/20/20 05:32 Band Neutrophils # 0.3 K/mm3 09/20/20 05:32 Lymphocytes # (Manual) 2.0 K/mm3 (1.2-5.4) 09/20/20 05:32 Abs React Lymphs (Man) 0.0 K/mm3 09/20/20 05:32 Monocytes # (Manual) 1.5 K/mm3 (0.0-0.8) H 09/20/20 05:32 Eosinophils # (Manual) 0.2 K/mm3 (0.0-0.4) 09/20/20 05:32 Basophils # (Manual) 0.0 K/mm3 (0.0-0.1) 09/20/20 05:32 Metamyelocytes # 0.3 K/mm3 09/20/20 05:32 Myelocytes # 0.0 K/mm3 09/20/20 05:32 Promyelocytes # 0.0 K/mm3 09/20/20 05:32 Blast Cells # 0.0 K/mm3 09/20/20 05:32 WBC Morphology Not Reportable 09/20/20 05:32 Hypersegmented Neuts Not Reportable 09/20/20 05:32 Hyposegmented Neuts Not Reportable 09/20/20 05:32 Hypogranular Neuts Not Reportable 09/20/20 05:32 Smudge Cells Not Reportable 09/20/20 05:32 Toxic Granulation Not Reportable 09/20/20 05:32 Toxic Vacuolation Not Reportable 09/20/20 05:32 Dohle Bodies Not Reportable 09/20/20 05:32 Pelger-Huet Anomaly Not Reportable 09/20/20 05:32 Rey Rods Not Reportable 09/20/20 05:32 Platelet Estimate Consistent w auto 09/20/20 05:32 Clumped Platelets Not Reportable 09/20/20 05:32 Plt Clumps, EDTA Not Reportable 09/20/20 05:32 Large Platelets Not Reportable 09/20/20 05:32 Giant Platelets Not Reportable 09/20/20 05:32 Platelet Satelliting Not Reportable 09/20/20 05:32 Plt Morphology Comment Not Reportable 09/20/20 05:32 RBC Morphology Not Reportable 09/20/20 05:32 Dimorphic RBCs Not Reportable 09/20/20 05:32 Polychromasia Not Reportable 09/20/20 05:32 Hypochromasia 1+ 09/20/20 05:32 Poikilocytosis Not Reportable 09/20/20 05:32 Anisocytosis 2+ 09/20/20 05:32 Microcytosis Not Reportable 09/20/20 05:32 Macrocytosis Not Reportable 09/20/20 05:32 Spherocytes Not Reportable 09/20/20 05:32 Pappenheimer Bodies Not Reportable 09/20/20 05:32 Sickle Cells Not Reportable 09/20/20 05:32 Target Cells Few 09/20/20 05:32 Tear Drop Cells Not Reportable 09/20/20 05:32 Ovalocytes Not Reportable 09/20/20 05:32 Helmet Cells Not Reportable 09/20/20 05:32 [place] Bodies Not Reportable 09/20/20 05:32 Reading Rings Not Reportable 09/20/20 05:32 Ela Cells Not Reportable 09/20/20 05:32 Bite Cells Not Reportable 09/20/20 05:32 Crenated Cell Not Reportable 09/20/20 05:32 Elliptocytes Not Reportable 09/20/20 05:32 Acanthocytes (Spur) Not Reportable 09/20/20 05:32 Rouleaux Not Reportable 09/20/20 05:32 Hemoglobin C Crystals Not Reportable 09/20/20 05:32 Schistocytes Not Reportable 09/20/20 05:32 Malaria parasites Not Reportable 09/20/20 05:32 Segun Bodies Not Reportable 09/20/20 05:32 Hem Pathologist Commnt No 09/20/20 05:32 Sodium 134 mmol/L (137-145) L 09/20/20 06:48 Potassium 3.3 mmol/L (3.6-5.0) L 09/20/20 06:48 Chloride 94.0 mmol/L (98-107) L 09/20/20 06:48 Carbon Dioxide 27 mmol/L (22-30) 09/20/20 06:48 Anion Gap 16 mmol/L 09/20/20 06:48 BUN 13 mg/dL (7-17) 09/20/20 06:48 Creatinine 0.7 mg/dL (0.6-1.2) 09/20/20 06:48 Estimated GFR > 60 ml/min 09/20/20 06:48 BUN/Creatinine Ratio 19 % 09/20/20 06:48 Glucose 135 mg/dL (65-100) H 09/20/20 06:48 Calcium 8.6 mg/dL (8.4-10.2) 09/20/20 06:48 Magnesium 1.90 mg/dL (1.7-2.3) 09/20/20 06:48 Total Bilirubin 0.20 mg/dL (0.1-1.2) 09/20/20 06:48 AST 13 units/L (5-40) 09/20/20 06:48 ALT 7 units/L (7-56) 09/20/20 06:48 Alkaline Phosphatase 69 units/L (35-129) 09/20/20 06:48 Total Creatine Kinase 41 units/L (30-135) 09/20/20 06:48 Troponin T < 0.010 ng/mL (0.00-0.029) 09/20/20 06:48 Total Protein 7.2 g/dL (6.3-8.2) 09/20/20 06:48 Albumin 3.1 g/dL (3.9-5) L 09/20/20 06:48 Albumin/Globulin Ratio 0.8 % 09/20/20 06:48 Lipase 28 units/L (13-60) 09/20/20 06:48 Urine Color Yellow (Yellow) 09/20/20 08:59 Urine Turbidity Clear (Clear) 09/20/20 08:59 Urine pH 5.0 (5.0-7.0) 09/20/20 08:59 Ur Specific [place] 1.027 (1.003-1.030) 09/20/20 08:59 Urine Protein 30 mg/dl mg/dL (Negative) 09/20/20 08:59 Urine Glucose (UA) Neg mg/dL (Negative) 09/20/20 08:59 Urine Ketones Neg mg/dL (Negative) 09/20/20 08:59 Urine Blood Neg (Negative) 09/20/20 08:59 Urine Nitrite Neg (Negative) 09/20/20 08:59 Urine Bilirubin Neg (Negative) 09/20/20 08:59 Urine Urobilinogen < 2.0 mg/dL (<2.0) 09/20/20 08:59 Ur Leukocyte Esterase Tr (Negative) 09/20/20 08:59 Urine WBC (Auto) 1.0 /HPF (0.0-6.0) 09/20/20 08:59 Urine RBC (Auto) < 1.0 /HPF (0.0-6.0) 09/20/20 08:59 U Epithel Cells (Auto) 1.0 /HPF (0-13.0) 09/20/20 08:59 Urine Mucus 1+ /HPF 09/20/20 08:59 - Imaging and Cardiology Chest x-ray: report reviewed Abdominal x-ray: report reviewed CT scan - abdomen: report reviewed - Diagnostic Impressions Diagnostic Impressions: 09/20 CT abd/pelvis w/o contrast: there is inflammation involving the sigmoid colon, descending colon, and splenic flexure. There is mild inflammation at the terminal ileum. There is trace free fluid in the pelvis. No abscess. 09/20 CXR/ abd xr: show no acute abnormality Assessment and Plan VTE prophylaxis?: Mechanical Plan of care discussed with patient/family: Yes - Patient Problems (1) SIRS (systemic inflammatory response syndrome) Current Visit: Yes Status: Acute Plan to address problem: Presented with leukocytosis, tachycardia 09/20 UA showed trace leukocyte esterase but negative for nitrates 09/20 BC x2 09/20 UC pending ABX therapy Trend CBC 09/20 lactic acid pending (2) Acute Crohn's disease Current Visit: Yes Status: Acute Qualifiers: Digestive disease complication type: without complication Qualified Code(s): K50.90 - Crohn's disease, unspecified, without complications Plan to address problem: Acute flareup of Crohn's disease 09/20 CT abdomen/pelvis without contrast showed mild terminal ileitis and distal colitis with trace abdominal fluid GI consulted in the ED S/p 125 mg methylprednisone and 500 mg Flagyl in the ED IV antibiotics and steroids Supportive care As needed analgesics MIVF (3) UTI (urinary tract infection) Current Visit: Yes Status: Acute Plan to address problem: 09/20 UA shows trace leukocyte Estrace but negative for nitrates IV antibiotics Trend CBC 09/20 urine culture pending (4) Hypokalemia Current Visit: Yes Status: Acute Plan to address problem: Presented with potassium of 3.3 Repleted 40 mEq p.o. in the ED Trend BMP Replete as needed (5) Hyponatremia Current Visit: Yes Status: Acute Plan to address problem: Presented with slight hyponatremia 134 Trend BMP We will continue to monitor for neuro changes S/p 1500 normal saline in the ED (6) Hypochloremia Current Visit: Yes Status: Acute Plan to address problem: Admit chloride 94.0 Trend BMP S/p 1500 mL normal saline in the ED (7) HTN (hypertension) Current Visit: Yes Status: Chronic Plan to address problem: Patient has a history of hypertension and takes isosorbide mononitrate at home Restarted home antihypertensive regimen BP monitoring per protocol (8) DVT prophylaxis Current Visit: Yes Status: Acute Plan to address problem: SCDs to bilateral lower extremities while in bed Lovenox subcu (9) Full code status Current Visit: Yes Status: Acute
--- NOTE | 2020-09-20 13:53 | Event Note ---
Date: 09/20/20 Full consult dictated - probable Crohn's flair - antibiotics as ordered - will order IBD related labs - no plans to scope at this time - when stable po antibiotics w/ further management as outpt
--- NOTE | 2020-09-20 14:59 | Consultation ---
REFERRING PHYSICIAN: Danay Killian M.D. INDICATIONS: 1. Abdominal pain. 2. Crohn's disease. HISTORY OF PRESENT ILLNESS: This is a 55-year-old black female with history of hypertension, Crohn's disease and anxiety. The patient reports she has had Crohn's disease for 20 years. The patient reports she has just moved to this area from [place] over the last few months. The patient reports that she had only been maintained on prednisone over recent months. She reports there was discussion about [facility], but after discussion, reports that she had not been following up as she should have been. She reports her last colonoscopy was 2-3 years ago and is not sure what the extent of her disease is. The patient subsequently recently in the last 2 weeks developed nausea, vomiting, abdominal pain and loose stools. She reports these symptoms are consistent with her Crohn's disease in the past. She reports of only occasional bloody streaks. She denies weight loss. She reports some mild weight loss and decreased appetite. She denies any other specific GI symptoms. The patient came to the Emergency Room recently and then re-presented with symptoms persisted, had a CT scan consistent with possible Crohn's disease, admitted and GI consulted. Denies any other specific complaints. PAST MEDICAL HISTORY: 1. Anemia. 2. Hypertension. 3. Crohn's disease. 4. Anxiety. PAST SURGICAL HISTORY: 1. . 2. Tonsillectomy. ALLERGIES: Include: 1. DILAUDID. 2. TORADOL. 3. SULFA DRUGS. MEDICATIONS: Reviewed and updated in chart. SOCIAL HISTORY: Denies alcohol, tobacco or drug abuse. FAMILY HISTORY: Negative for colon cancer, IBD, or liver disease. REVIEW OF SYSTEMS: GENERAL: Reports some weakness. HEENT: No visual complaints or tinnitus. PULMONARY: No shortness of breath. No cough. No chest pain. GASTROINTESTINAL: Reports abdominal pain. All points of 13-point review of systems otherwise negative. PHYSICAL EXAMINATION: VITAL SIGNS: Temperature of 98.6, pulse of 100, respirations 20, blood pressure 199/90. GENERAL: Fairly nourished female, in no acute distress. HEENT: Pupils equal, round and reactive. PULMONARY: Clear to auscultation bilaterally. CARDIOVASCULAR: Regular rhythm. Normal S1, S2. ABDOMEN: Positive bowel sounds, soft. SKIN: No obvious rashes. LABORATORY DATA: Pertinent for a white count of 15, hemoglobin and hematocrit of 12 and 39.8, platelet count of 441. Chem-7 within normal limits. LFTs within normal limits. CT scan of abdomen and pelvis with contrast performed on 09/20/2020 showed mild terminal ileitis with distal colitis suggestive of active Crohn's disease, otherwise negative. ASSESSMENT AND PLAN: A 55-year-old female with a history of Crohn's disease, which has not been on medications and seemingly managed well recently. New to the area for the last 1-2 months, now presents with recent weeks of abdominal pain with loose stools with a CT scan suggestive of Crohn's disease. There seems to be a level of noncompliance to what the patient has been doing in terms of her management. Her last colonoscopy was over 2-3 years ago and she has not been on maintenance medications recently. Management is noted below. PLAN: 1. We will attempt to get previous records. 2. Review CT scan. 3. Discussed with ER we will give a dose of Solu-Medrol IV with plans to continue 125 mg IV q.8 hours as well as Flagyl 500 mg IV t.i.d. 4. Clear liquid diet and advance as tolerated. 5. No plans for colonoscopy at this time. 6. Based on progress, we would hope to discharge soon with plans for further management as an outpatient. 7. We will follow. JOB# [id number] RANJITH/NTS
[2020-09-20] MEDS: MORPHINE 2 MG/1 ML INJ IV PRN (15:55)
[2020-09-20] MEDS: CEFEPIME/NS 1 GM/100 ML 1 GM/100 ML BAG IV SCH (16:23)
[2020-09-20] MEDS: ISOSORBIDE DINITRATE 10 MG TAB PO SCH (16:23)
[2020-09-20] MEDS: SENNOSIDES 8.6 MG TAB PO SCH (22:02)
[2020-09-20] MEDS: DOCUSATE SODIUM 100 MG CAP PO SCH (22:02)
[2020-09-20] MEDS: metroNIDAZOLE/NS 500 MG/100 ML 500 MG/100 ML BAG IV SCH (22:02)
[2020-09-20] MEDS: oxyCODONE /ACETAMINOPHEN 5-325MG TAB PO PRN (22:05)
[2020-09-20] MEDS ORDERED: MORPHINE 2 MG/1 ML INJ ONE (23:46)
[2020-09-21] MEDS ORDERED: METRONIDAZOLE IV ONE ×2 (03:00→05:30)
[2020-09-21] MEDS ORDERED: NS IV ONE ×2 (03:00→05:30)
[2020-09-21] MEDS ORDERED: DOCUSATE SODIUM 100 MG CAP ONE (03:00)
[2020-09-21] MEDS ORDERED: SENNOSIDES 8.6 MG TAB ONE (03:00)
[2020-09-21] MEDS ORDERED: HYDROcodone/ACETAMINOPHEN 5-325 MG TAB ONE (03:00)
[2020-09-21] MEDS ORDERED: methylPREDNISolone Sod Succinate 125 MG/2 ML INJ ONE (03:00)
[2020-09-21] MEDS ORDERED: MORPHINE 2 MG/1 ML INJ ONE (03:00)
--- NOTE | 2020-09-21 17:32 | Progress Note ---
Assessment and Plan - Patient Problems (1) SIRS (systemic inflammatory response syndrome) Current Visit: Yes Status: Acute Plan to address problem: Presented with leukocytosis, tachycardia 09/20 UA showed trace leukocyte esterase but negative for nitrates 09/20 BC x2 09/20 UC pending ABX therapy Trend CBC 09/20 lactic acid pending (2) Acute Crohn's disease Current Visit: Yes Status: Acute Qualifiers: Digestive disease complication type: without complication Qualified Code(s): K50.90 - Crohn's disease, unspecified, without complications Plan to address problem: Acute flareup of Crohn's disease 09/20 CT abdomen/pelvis without contrast showed mild terminal ileitis and distal colitis with trace abdominal fluid GI consulted in the ED S/p 125 mg methylprednisone and 500 mg Flagyl in the ED IV antibiotics and steroids Supportive care As needed analgesics MIVF -GI started pt on CLD, advance as tolerated -Pt will need to f/u with GI outpt for a colonoscopy before being initiated on immunologic therapy -Pt has a long history of noncompliance with followup care for her Crohn's (3) UTI (urinary tract infection) Current Visit: Yes Status: Acute Plan to address problem: 09/20 UA shows trace leukocyte Estrace but negative for nitrates IV antibiotics Trend CBC 09/20 urine culture pending (4) Hypokalemia Current Visit: Yes Status: Acute Plan to address problem: Presented with potassium of 3.3 Repleted 40 mEq p.o. in the ED Trend BMP Replete as needed (5) Hyponatremia Current Visit: Yes Status: Acute Plan to address problem: Presented with slight hyponatremia 134 Trend BMP We will continue to monitor for neuro changes S/p 1500 normal saline in the ED (6) Hypochloremia Current Visit: Yes Status: Acute Plan to address problem: Admit chloride 94.0 Trend BMP S/p 1500 mL normal saline in the ED (7) HTN (hypertension) Current Visit: Yes Status: Chronic Plan to address problem: Patient has a history of hypertension and takes isosorbide mononitrate at home Restarted home antihypertensive regimen BP monitoring per protocol (8) DVT prophylaxis Current Visit: Yes Status: Acute Plan to address problem: SCDs to bilateral lower extremities while in bed Lovenox subcu History Interval history: This is a 55-year-old female with hypertension, Crohn's, and anxiety who presents to the emergency department on 09/20 with complaints of diffuse abdominal pain, myalgia and body aches (rated at 10/10 which is described as an ache) for about 2 weeks, nausea and diarrhea for about a week and midsternal chest tightness intermittently x 2 days with no aggravating or relieving factors rated at a 5/10. Work-up in the emergency department revealed slight hyponatremia 134, hypokalemia 3.3, hypochloremia at 94, leukocytosis 15, slight thrombocytosis 441 K, urine analysis shows trace leukocyte esterase, and CT abdomen shows finding consistent with active Crohn's disease with trace free fluid in the pelvis and no abscess. GI was consulted in the emergency department and she was started on steroids and Flagyl. LA was 0.07. Today she stated she was feeling better but still experiencing slight ad pain. GI recommended outpt f/u for Crohns and started her on CLD which she tolerated. * No labs to review as [employer] was down since 11pm 09/21 Hospitalist Physical - Constitutional Vitals: Temp Pulse Resp BP Pulse Ox 98.9 F 86 20 111/71 92 09/21/20 17:00 09/21/20 17:00 09/21/20 17:00 09/21/20 17:00 09/21/20 17:00 General appearance: Present: no acute distress, obese - EENT Eyes: Present: PERRL, EOM intact ENT: hearing intact, clear oral mucosa - Neck Neck: Present: supple, normal ROM - Respiratory Respiratory effort: normal Respiratory: bilateral: CTA - Cardiovascular Rhythm: regular Heart Sounds: Present: S1 & S2. Absent: systolic murmur, diastolic murmur - Extremities Extremities: no ischemia, pulses intact, pulses symmetrical, No edema, normal temperature, normal color, Full ROM - Abdominal General gastrointestinal: soft, non-distended, normal bowel sounds Localized gastrointestinal: tender: diffuse - Integumentary Integumentary: Present: clear, warm, dry - Psychiatric Psychiatric: appropriate mood/affect, cooperative - Neurologic Neurologic: CNII-XII intact, no focal deficits, moves all extremities HEART Score - HEART Score EKG: Normal Age: 45-65 Risk factors: 1-2 risk factors Troponin: Troponin T < 0.010 ng/mL (0.00-0.029) 09/20/20 06:48 Troponin: < normal limit - Critical Actions Critical Actions: 0-3 pts:0.9-1.7%risk of adverse cardiac event.Candidate for discharge Results - Labs CBC & Chem 7: 09/20/20 05:32 09/20/20 06:48 Labs: Laboratory Last Values WBC 15.0 K/mm3 (4.5-11.0) H 09/20/20 05:32 RBC 4.83 M/mm3 (3.65-5.03) 09/20/20 05:32 Hgb 12.9 gm/dl (10.1-14.3) 09/20/20 05:32 Hct 39.8 % (30.3-42.9) 09/20/20 05:32 MCV 83 fl (79-97) 09/20/20 05:32 MCH 27 pg (28-32) L 09/20/20 05:32 MCHC 32 % (30-34) 09/20/20 05:32 RDW 24.2 % (13.2-15.2) H 09/20/20 05:32 Plt Count 441 K/mm3 (140-440) H 09/20/20 05:32 Add Manual Diff Complete 09/20/20 05:32 Total Counted 100 09/20/20 05:32 Seg Neuts % (Manual) 72.0 % (40.0-70.0) H 09/20/20 05:32 Band Neutrophils % 2.0 % 09/20/20 05:32 Lymphocytes % (Manual) 13.0 % (13.4-35.0) L 09/20/20 05:32 Reactive Lymphs % (Man) 0 % 09/20/20 05:32 Monocytes % (Manual) 10.0 % (0.0-7.3) H 09/20/20 05:32 Eosinophils % (Manual) 1.0 % (0.0-4.3) 09/20/20 05:32 Basophils % (Manual) 0 % (0.0-1.8) 09/20/20 05:32 Metamyelocytes % 2.0 % 09/20/20 05:32 Myelocytes % 0 % 09/20/20 05:32 Promyelocytes % 0 % 09/20/20 05:32 Blast Cells % 0 % 09/20/20 05:32 Nucleated RBC % 1.0 % (0.0-0.9) H 09/20/20 05:32 Seg Neutrophils # Man 10.8 K/mm3 (1.8-7.7) H 09/20/20 05:32 Band Neutrophils # 0.3 K/mm3 09/20/20 05:32 Lymphocytes # (Manual) 2.0 K/mm3 (1.2-5.4) 09/20/20 05:32 Abs React Lymphs (Man) 0.0 K/mm3 09/20/20 05:32 Monocytes # (Manual) 1.5 K/mm3 (0.0-0.8) H 09/20/20 05:32 Eosinophils # (Manual) 0.2 K/mm3 (0.0-0.4) 09/20/20 05:32 Basophils # (Manual) 0.0 K/mm3 (0.0-0.1) 09/20/20 05:32 Metamyelocytes # 0.3 K/mm3 09/20/20 05:32 Myelocytes # 0.0 K/mm3 09/20/20 05:32 Promyelocytes # 0.0 K/mm3 09/20/20 05:32 Blast Cells # 0.0 K/mm3 09/20/20 05:32 WBC Morphology Not Reportable 09/20/20 05:32 Hypersegmented Neuts Not Reportable 09/20/20 05:32 Hyposegmented Neuts Not Reportable 09/20/20 05:32 Hypogranular Neuts Not Reportable 09/20/20 05:32 Smudge Cells Not Reportable 09/20/20 05:32 Toxic Granulation Not Reportable 09/20/20 05:32 Toxic Vacuolation Not Reportable 09/20/20 05:32 Dohle Bodies Not Reportable 09/20/20 05:32 Pelger-Huet Anomaly Not Reportable 09/20/20 05:32 Rey Rods Not Reportable 09/20/20 05:32 Platelet Estimate Consistent w auto 09/20/20 05:32 Clumped Platelets Not Reportable 09/20/20 05:32 Plt Clumps, EDTA Not Reportable 09/20/20 05:32 Large Platelets Not Reportable 09/20/20 05:32 Giant Platelets Not Reportable 09/20/20 05:32 Platelet Satelliting Not Reportable 09/20/20 05:32 Plt Morphology Comment Not Reportable 09/20/20 05:32 RBC Morphology Not Reportable 09/20/20 05:32 Dimorphic RBCs Not Reportable 09/20/20 05:32 Polychromasia Not Reportable 09/20/20 05:32 Hypochromasia 1+ 09/20/20 05:32 Poikilocytosis Not Reportable 09/20/20 05:32 Anisocytosis 2+ 09/20/20 05:32 Microcytosis Not Reportable 09/20/20 05:32 Macrocytosis Not Reportable 09/20/20 05:32 Spherocytes Not Reportable 09/20/20 05:32 Pappenheimer Bodies Not Reportable 09/20/20 05:32 Sickle Cells Not Reportable 09/20/20 05:32 Target Cells Few 09/20/20 05:32 Tear Drop Cells Not Reportable 09/20/20 05:32 Ovalocytes Not Reportable 09/20/20 05:32 Helmet Cells Not Reportable 09/20/20 05:32 [place] Bodies Not Reportable 09/20/20 05:32 [place] Rings Not Reportable 09/20/20 05:32 [place] Cells Not Reportable 09/20/20 05:32 Bite Cells Not Reportable 09/20/20 05:32 Crenated Cell Not Reportable 09/20/20 05:32 Elliptocytes Not Reportable 09/20/20 05:32 Acanthocytes (Spur) Not Reportable 09/20/20 05:32 Rouleaux Not Reportable 09/20/20 05:32 Hemoglobin C Crystals Not Reportable 09/20/20 05:32 Schistocytes Not Reportable 09/20/20 05:32 Malaria parasites Not Reportable 09/20/20 05:32 Segun Bodies Not Reportable 09/20/20 05:32 Hem Pathologist Commnt No 09/20/20 05:32 Sodium 134 mmol/L (137-145) L 09/20/20 06:48 Potassium 3.3 mmol/L (3.6-5.0) L 09/20/20 06:48 Chloride 94.0 mmol/L (98-107) L 09/20/20 06:48 Carbon Dioxide 27 mmol/L (22-30) 09/20/20 06:48 Anion Gap 16 mmol/L 09/20/20 06:48 BUN 13 mg/dL (7-17) 09/20/20 06:48 Creatinine 0.7 mg/dL (0.6-1.2) 09/20/20 06:48 Estimated GFR > 60 ml/min 09/20/20 06:48 BUN/Creatinine Ratio 19 % 09/20/20 06:48 Glucose 135 mg/dL (65-100) H 09/20/20 06:48 Lactic Acid 0.70 mmol/L (0.7-2.0) 09/20/20 12:55 Calcium 8.6 mg/dL (8.4-10.2) 09/20/20 06:48 Magnesium 1.90 mg/dL (1.7-2.3) 09/20/20 06:48 Total Bilirubin 0.20 mg/dL (0.1-1.2) 09/20/20 06:48 AST 13 units/L (5-40) 09/20/20 06:48 ALT 7 units/L (7-56) 09/20/20 06:48 Alkaline Phosphatase 69 units/L (35-129) 09/20/20 06:48 Total Creatine Kinase 41 units/L (30-135) 09/20/20 06:48 Troponin T < 0.010 ng/mL (0.00-0.029) 09/20/20 06:48 Total Protein 7.2 g/dL (6.3-8.2) 09/20/20 06:48 Albumin 3.1 g/dL (3.9-5) L 09/20/20 06:48 Albumin/Globulin Ratio 0.8 % 09/20/20 06:48 Lipase 28 units/L (13-60) 09/20/20 06:48 Urine Color Yellow (Yellow) 09/20/20 08:59 Urine Turbidity Clear (Clear) 09/20/20 08:59 Urine pH 5.0 (5.0-7.0) 09/20/20 08:59 Ur Specific [place] 1.027 (1.003-1.030) 09/20/20 08:59 Urine Protein 30 mg/dl mg/dL (Negative) 09/20/20 08:59 Urine Glucose (UA) Neg mg/dL (Negative) 09/20/20 08:59 Urine Ketones Neg mg/dL (Negative) 09/20/20 08:59 Urine Blood Neg (Negative) 09/20/20 08:59 Urine Nitrite Neg (Negative) 09/20/20 08:59 Urine Bilirubin Neg (Negative) 09/20/20 08:59 Urine Urobilinogen < 2.0 mg/dL (<2.0) 09/20/20 08:59 Ur Leukocyte Esterase Tr (Negative) 09/20/20 08:59 Urine WBC (Auto) 1.0 /HPF (0.0-6.0) 09/20/20 08:59 Urine RBC (Auto) < 1.0 /HPF (0.0-6.0) 09/20/20 08:59 U Epithel Cells (Auto) 1.0 /HPF (0-13.0) 09/20/20 08:59 Urine Mucus 1+ /HPF 09/20/20 08:59 Ayala/IV: Voiding Method Toilet IV Catheter Type [Left Upper INT / Saline Lock arm] Active Medications - Current Medications Current Medications: Generic Name Dose Route Start Last Admin Trade Name Freq PRN Reason Stop Dose Admin Acetaminophen 650 mg 09/20/20 11:29 Tylenol PO Q4H PRN Pain MILD(1-3)/Fever >100.5/MENA Al Hydrox/Mg Hydrox/Simethicone 30 ml 09/20/20 11:29 Alum-Mag Hydrox-Simeth [phone]/5ml PO Q4H PRN Indigestion Docusate Sodium 100 mg 09/20/20 22:00 09/20/20 22:02 Colace PO 100 mg BID GUANAKO Administration Metronidazole 500 mg in 100 mls @ 100 mls/hr 09/20/20 22:00 09/20/20 22:02 Flagyl 500 Mg/100 Ml IV 100 mls/hr Q8HR GUANAKO Administration Protocol Cefepime HCl 1 gm in 100 mls @ 200 mls/hr 09/20/20 14:00 09/20/20 16:23 Cefepime/Ns 1 Gm/100 Ml IV 200 mls/hr Q8HR GUANAKO Administration Protocol Isosorbide Dinitrate 10 mg 09/20/20 14:00 09/20/20 16:23 Isordil PO 10 mg DAILY GUANAKO Administration Methylprednisolone Sodium Succinate 60 mg 09/21/20 10:00 Solu-Medrol IV DAILY [facility] Morphine Sulfate 2 mg 09/20/20 11:29 09/20/20 15:55 Morphine IV 2 mg Q4H PRN Administration Pain, Moderate (4-6) Naloxone HCl 0.1 mg 09/20/20 11:29 Naloxone IV Q2MIN PRN Res Rate </= 8 or 02 SAT < 92% Ondansetron HCl 4 mg 09/20/20 11:29 Zofran IV Q8H PRN Nausea And Vomiting Oxycodone/Acetaminophen 1 tab 09/20/20 11:29 09/20/20 22:05 Percocet 5/325 PO 1 tab Q6H PRN Administration Pain, Moderate (4-6) Senna 8.6 mg 09/20/20 22:00 09/20/20 22:02 Senokot PO 8.6 mg Q12HR GUANAKO Administration Sodium Chloride 10 ml 09/20/20 22:00 09/20/20 22:03 Sodium Chloride Flush Syringe 10 Ml IV 10 ml BID GUANAKO Administration Sodium Chloride 10 ml 09/20/20 11:29 Sodium Chloride Flush Syringe 10 Ml IV PRN PRN LINE FLUSH
[2020-09-21] MEDS: CEFEPIME/NS 1 GM/100 ML 1 GM/100 ML BAG IV SCH ×2 (18:02→21:07)
[2020-09-21] MEDS: metroNIDAZOLE/NS 500 MG/100 ML 500 MG/100 ML BAG IV SCH ×3 (18:02→21:06)
[2020-09-21] MEDS: ISOSORBIDE DINITRATE 10 MG TAB PO SCH (18:03)
[2020-09-21] MEDS: DOCUSATE SODIUM 100 MG CAP PO SCH ×2 (18:03→21:07)
[2020-09-21] MEDS: SENNOSIDES 8.6 MG TAB PO SCH ×2 (18:04→21:06)
[2020-09-21] MEDS: methylPREDNISolone Sod Succinate 125 MG/2 ML INJ IV SCH (18:04)
[2020-09-21] MEDS: MORPHINE 2 MG/1 ML INJ IV PRN (18:50)
--- NOTE | 2020-09-21 20:50 | Gastroenterology Progress Note ---
Assessment and Plan 1. GI: pt w/ Crohn's disease w signs of flair now improving - advance diet slowly as tolerated - if stable in am ok to switch to po Prednisone 40mgpo qd w/plans for outpt taper - colonoscopy as outpt -when tolerating po and stable ok to dc from GI standpoint Subjective Date of service: 09/21/20 Interval history: - pt reports still w/ some abdominal pain but symptoms overall improved Objective - Constitutional Vitals: Temp Pulse Resp BP Pulse Ox 98.9 F 86 20 111/71 92 09/21/20 17:00 09/21/20 17:00 09/21/20 17:00 09/21/20 17:00 09/21/20 17:00 General appearance: no acute distress - EENT Eyes: PERRL - Respiratory Respiratory: bilateral: CTA - Cardiovascular Rhythm: regular Heart Sounds: Present: S1 & S2 - Gastrointestinal General gastrointestinal: Present: soft, non-tender, non-distended - Labs CBC & Chem 7: 09/20/20 05:32 09/20/20 06:48
[2020-09-21] MEDS: oxyCODONE /ACETAMINOPHEN 5-325MG TAB PO PRN (21:06)
[2020-09-22] MEDS: MORPHINE 2 MG/1 ML INJ IV PRN ×2 (02:47→09:23)
[2020-09-22 02:49] LABS: Hematocrit 32.5 % (30.3-42.9); Hemoglobin 10.5 gm/dl (10.1-14.3); Mean Corpuscular HGB Conc 32 % (30-34); Mean Corpuscular Volume 83 fl (79-97); Platelet Count 351 K/mm3 (140-440)
[2020-09-22 03:09] LABS: Red Cell Distribution Width 24.2 % (13.2-15.2)
[2020-09-22 03:11] LABS: Blood Urea Nitrogen 13 mg/dL (7-17); Hemolysis Index 0
[2020-09-22 03:23] LABS: BUN/Creatinine Ratio 22
[2020-09-22] MEDS: oxyCODONE /ACETAMINOPHEN 5-325MG TAB PO PRN ×2 (05:33→14:19)
[2020-09-22] MEDS: metroNIDAZOLE/NS 500 MG/100 ML 500 MG/100 ML BAG IV SCH (05:34)
[2020-09-22] MEDS: CEFEPIME/NS 1 GM/100 ML 1 GM/100 ML BAG IV SCH (05:34)
[2020-09-22] MEDS: methylPREDNISolone Sod Succinate 125 MG/2 ML INJ IV SCH (09:24)
[2020-09-22] MEDS: DOCUSATE SODIUM 100 MG CAP PO SCH (09:29)
[2020-09-22] MEDS: SENNOSIDES 8.6 MG TAB PO SCH (09:32)
[2020-09-22] MEDS: ISOSORBIDE DINITRATE 10 MG TAB PO SCH (09:33)
[2020-09-22 09:36] VITALS: BP 139/87
[2020-09-22] MEDS: POTASSIUM CHLORIDE 10 MEQ 10 MEQ/100 ML BAG IV SCH ×2 (09:41→13:13)
--- NOTE | 2020-09-22 13:59 | Discharge Summary ---
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 Work-up in the emergency department revealed slight hyponatremia 134, hypokalemia 3.3, hypochloremia at 94, leukocytosis 15, slight thrombocytosis 441 K, urine analysis shows trace leukocyte esterase, and CT abdomen shows finding consistent with active Crohn's disease with trace free fluid in the pelvis and no abscess. GI was consulted in the emergency department and she was started on steroids and Flagyl and her LA was 0.07. Patient will need to follow-up outpatient with GI for continued care Crohn's disease. Patient will need to advance her diet as tolerated. Patient will need to follow-up with her primary care physician within 1 to 2 weeks of discharge. She will be discharged with 1 day of antibiotic therapy for her urinary tract infection. - Patient Problems (1) SIRS (systemic inflammatory response syndrome) Current Visit: Yes Status: Acute Plan to address problem: Presented with leukocytosis, tachycardia 09/20 UA showed trace leukocyte esterase but negative for nitrates 09/20 BC x2 NGTD 09/20 UC 0.07 ABX therapy Trend CBC 09/20 lactic acid 0.07 (2) Acute Crohn's disease Current Visit: Yes Status: Acute Qualifiers: Digestive disease complication type: without complication Qualified Code(s): K50.90 - Crohn's disease, unspecified, without complications Plan to address problem: Acute flareup of Crohn's disease 09/20 CT abdomen/pelvis without contrast showed mild terminal ileitis and distal colitis with trace abdominal fluid GI consulted in the ED S/p 125 mg methylprednisone and 500 mg Flagyl in the ED IV antibiotics and steroids, steroid taper outpatient, Flagyl 500 Mg PO every 8 hours for 10 days GI started pt on CLD, advance as tolerated Will need to f/u with GI outpt for a colonoscopy before being initiated on immunologic therapy Has a long history of noncompliance with followup care for her Crohn's (3) UTI (urinary tract infection) Current Visit: Yes Status: Acute Plan to address problem: 09/20 UA shows trace leukocyte Estrace but negative for nitrates s/p IV antibiotics (09/20-09/22) 09/20 urine culture pending DC with PO abx for one day (4) Hypokalemia Current Visit: Yes Status: Acute Plan to address problem: Presented with potassium of 3.3 Repleted 40 mEq p.o. in the ED Trend BMP 09/22 K 3.4, repleted (5) Hyponatremia Current Visit: Yes Status: Acute Plan to address problem: Presented with slight hyponatremia 134 09/22 Na 136 S/p 1500 normal saline in the ED Encourage PO intake (6) Hypochloremia Current Visit: Yes Status: Acute Plan to address problem: Admit chloride 94.0, 09/22 Cl 96.3 Encourage PO intake of water S/p 1500 mL normal saline in the ED (7) HTN (hypertension) Current Visit: Yes Status: Chronic Plan to address problem: Patient has a history of hypertension and takes isosorbide mononitrate at home Restarted home antihypertensive regimen BP monitoring per PCP (7) Leukocytosis Current Visit: Yes Status: Acute Plan to address problem: Presented with a WBC of 15, initiate antibiotic therapy 09/22 WBC 8 Disposition: DC-01 TO HOME OR SELFCARE Time spent for discharge: 35 Core Measure Documentation - Palliative Care Palliative Care/ Comfort Measures: Not Applicable - Core Measures Any of the following diagnoses?: none Exam - Physical Exam Narrative exam: General appearance: Present: no acute distress, obese - EENT Eyes: Present: PERRL, EOM intact ENT: hearing intact, clear oral mucosa - Neck Neck: Present: supple, normal ROM - Respiratory Respiratory effort: normal Respiratory: bilateral: CTA - Cardiovascular Rhythm: regular Heart Sounds: Present: S1 & S2. Absent: systolic murmur, diastolic murmur - Extremities Extremities: no ischemia, pulses intact, pulses symmetrical, No edema, normal temperature, normal color, Full ROM - Abdominal General gastrointestinal: soft, non-distended, normal bowel sounds Localized gastrointestinal: tender: diffuse - Integumentary Integumentary: Present: clear, warm, dry - Psychiatric Psychiatric: appropriate mood/affect, cooperative - Neurologic Neurologic: CNII-XII intact, no focal deficits, moves all extremities - Constitutional Vitals: Temp Pulse Resp BP Pulse Ox 99.2 F 98 H 18 139/87 93 09/22/20 05:15 09/22/20 09:33 09/22/20 05:15 09/22/20 09:33 09/22/20 05:15 Plan Activity: advance as tolerated Diet: low fat, low salt, advance as tolerated Special Instructions: record daily BP diary Additional Instructions: Contact your primary care physician or present to nearest emergency department if you experience worsening symptoms. Follow-up with GI outpatient within 1 to 2 weeks of discharge for management of your Crohn's disease and a colonoscopy. You will be discharged with 1 day of antibiotic therapy for urinary tract infection and with steroids with an outpatient taper. To be discharged with Flagyl 500 mg every 8 hours for 8 days. Follow-up with your primary care physician within 1 to 2 weeks of discharge. Follow up with: PRIMARY CARE, [Primary Care Provider] - 3-5 Days ESTHER LINARES MD [Staff Physician] - 7 Days Prescriptions: predniSONE [Deltasone] 10 mg PO QDAY #40 tab metroNIDAZOLE [Flagyl] 500 mg PO Q12HR 10 Days #20 tab Isosorbide Dinitrate [Isordil] 10 mg PO DAILY #30 tablet
[2020-09-22] MEDS ORDERED: POTASSIUM CHLORIDE ER 20 MEQ TAB PO NR (14:00)
--- NOTE | 2020-09-22 14:26 | Gastroenterology Progress Note ---
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 - follow up impressed on pt - ok to dc from GI standpoint Subjective Date of service: 09/22/20 Interval history: - reports feeling better, tolerating po Objective - Constitutional Vitals: Temp Pulse Resp BP Pulse Ox 99.2 F 98 H 18 139/87 93 09/22/20 05:15 09/22/20 09:33 09/22/20 05:15 09/22/20 09:33 09/22/20 05:15 General appearance: no acute distress - EENT Eyes: PERRL - Respiratory Respiratory: bilateral: CTA - Cardiovascular Rhythm: regular Heart Sounds: Present: S1 & S2 - Gastrointestinal General gastrointestinal: Present: soft, non-tender, non-distended - Labs CBC & Chem 7: 09/22/20 00:43 09/22/20 00:43 Labs: Laboratory Results - last 24 hr 09/21/20 09/22/20 09/22/20 00:43 00:43 00:43 WBC 8.0 RBC 3.90 Hgb 10.5 Hct 32.5 D MCV 83 MCH 27 L MCHC 32 RDW 24.2 H Plt Count 351 Sodium 136 L Potassium 3.4 L Chloride 96.3 L Carbon Dioxide 25 Anion Gap 18 BUN 13 Creatinine 0.6 Estimated GFR > 60 BUN/Creatinine Ratio 22 Glucose 215 H Calcium 8.0 L C-Reactive Protein 12.00 H
[2020-09-23] MEDS ORDERED: predniSONE 20 MG TAB PO SCH (10:00)
== END 2020-09-22 17:00 | disposition home or self-care (01) ==
LOC: ED 04:24 → 3A 10:40
PROVIDERS: ADMIT Internal Medicine; ATTEND Internal Medicine
DX: R65.10 Systemic inflammatory response syndrome (SIRS) of non-infectious origin without acute organ dysfunction (principal); K50.90 Crohn's disease, unspecified, without complications; E87.6 Hypokalemia; E87.1 Hypo-osmolality and hyponatremia; N39.0 Urinary tract infection, site not specified; E87.8 Other disorders of electrolyte and fluid balance, not elsewhere classified; I10 Essential (primary) hypertension; F41.9 Anxiety disorder, unspecified; D72.829 Elevated white blood cell count, unspecified; D47.3 Essential (hemorrhagic) thrombocythemia; D64.9 Anemia, unspecified; Z90.49 Acquired absence of other specified parts of digestive tract; Z98.891 History of uterine scar from previous surgery; Z98.890 Other specified postprocedural states
CPT/HCPCS: 36415; 71045; 74177; 80048; 80053; 81001; 82140; 82550; 83690; 83735; 84484; 85025; 85027; 86140; 87040; 87086; 93005; 96361; 96365; 96366; 96367; 96368; 96375; 96376; 99285; G0378; J0692; J1200; J2270; J2405; J2930; J3480; J7030; J7040; Q9967; 85007

== ENCOUNTER 2020-10-05 09:22 | Inpatient (IN) | payer SELFPAY ==
[2020-10-05] MEDS ORDERED: SODIUM CHLORIDE 0.9% 1000 ML 1,000 ML IV ONE (10:04)
--- NOTE | 2020-10-05 10:57 | XRay Report ---
CHEST 2 VIEWS INDICATION / CLINICAL INFORMATION: cough and SOB. COMPARISON: Chest one view from 09/20/2020. FINDINGS: SUPPORT DEVICES: None. HEART / MEDIASTINUM: No significant abnormality. LUNGS / PLEURA: Bibasilar opacities have increased. The lungs are otherwise clear. No significant ple ural effusion. No pneumothorax. ADDITIONAL FINDINGS: No significant additional findings. IMPRESSION: Increased bibasilar opacities could represent atelectasis or evolving pneumonia. Continued radiograph ic follow-up to resolution is recommended. Signer Name: Saturnino Mccormack MD Signed: 10/05/2020 10:52 AM Workstation Name: [id number]
--- NOTE | 2020-10-05 11:06 | Emergency Department Report ---
ED General Adult HPI - General Chief complaint: Upper Respiratory Infection Stated complaint: CHEST PAIN, COUGH Time Seen by Provider: 10/05/20 10:25 Source: patient Mode of arrival: Ambulatory Limitations: No Limitations - History of Present Illness Initial comments: 55-year-old -[place] female patient presents with complaints of cough and shortness of breath x5 days. She also admits to decreased taste and smell and nausea, vomiting, and diarrhea without abdominal pain. Patient has history of hypertension and Crohn's disease and was admitted on 09/20/2020 for Crohn's flare. At that visit patient did receive IV antibiotics and was discharged on 09/22/2020. She does states she has some chest pain, however she states this is with the cough and denies any hemoptysis. -: Sudden - Related Data Home Medications Medication Instructions Recorded Confirmed Last Taken Amitriptyline [Elavil] 25 mg PO QHS 09/20/20 09/20/20 09/05/20 21:00 Previous Rx's Medication Instructions Recorded Last Taken Type Acetaminophen [Acetaminophen TAB] 650 mg PO Q4H PRN tablet 09/22/20 Unknown Rx Antacid [Alum-Mag Hydrox-Simeth 30 ml PO Q4H PRN oral.liqd 09/22/20 Unknown Rx [id number]/5Ml] Ciprofloxacin HCl [Ciprofloxacin 750 mg PO DAILY 1 Days #1 tablet 09/22/20 Unknown Rx TAB] Docusate Sodium [Colace CAP] 100 mg PO BID capsule 09/22/20 Unknown Rx Isosorbide Dinitrate [Isordil] 10 mg PO DAILY #30 tablet 09/22/20 Unknown Rx Sennosides Tab [Senokot] 8.6 mg PO Q12HR tablet 09/22/20 Unknown Rx metroNIDAZOLE [Flagyl] 500 mg PO Q8HR 7 Days #21 tablet 09/22/20 Unknown Rx predniSONE [Deltasone] 10 mg PO QDAY #40 tab 09/22/20 Unknown Rx Allergies Allergy/AdvReac Type Severity Reaction Status Date / Time hydromorphone [From Dilaudid] Allergy Unknown Verified 09/14/20 09:39 ketorolac [From Toradol] Allergy Unknown Verified 09/14/20 09:39 Sulfa (Sulfonamide Allergy Unknown Verified 09/14/20 09:39 Antibiotics) ED Review of Systems ROS: Stated complaint: CHEST PAIN, COUGH Other details as noted in HPI Constitutional: chills, malaise, weakness. denies: diaphoresis, fever ENT: denies: throat pain Respiratory: cough, shortness of breath Cardiovascular: chest pain (Secondary to cough per). denies: edema Endocrine: denies: excessive sweating Gastrointestinal: abdominal pain, nausea, vomiting, diarrhea Genitourinary: denies: urgency, dysuria, frequency, hematuria, discharge Skin: denies: change in color Neurological: denies: headache Hematological/Lymphatic: denies: swollen glands ED Past Medical Hx - Past Medical History Previous Medical History?: Yes Hx Hypertension: Yes Hx Congestive Heart Failure: No Hx Diabetes: No Hx Asthma: No Hx COPD: No Additional medical history: Crohn's disease - Surgical History Past Surgical History?: No Additional Surgical History: Tonsils, CSection, Knee - Social History Smoking Status: Never Smoker - Medications Home Medications: Home Medications Medication Instructions Recorded Confirmed Last Taken Type Amitriptyline [Elavil] 25 mg PO QHS 09/20/20 09/20/20 09/05/20 21:00 History Acetaminophen [Acetaminophen TAB] 650 mg PO Q4H PRN tablet 09/22/20 Unknown Rx Antacid [Alum-Mag Hydrox-Simeth 30 ml PO Q4H PRN oral.liqd 09/22/20 Unknown Rx [id number]/5Ml] Ciprofloxacin HCl [Ciprofloxacin 750 mg PO DAILY 1 Days #1 tablet 09/22/20 Unknown Rx TAB] Docusate Sodium [Colace CAP] 100 mg PO BID capsule 09/22/20 Unknown Rx Isosorbide Dinitrate [Isordil] 10 mg PO DAILY #30 tablet 09/22/20 Unknown Rx Sennosides Tab [Senokot] 8.6 mg PO Q12HR tablet 09/22/20 Unknown Rx metroNIDAZOLE [Flagyl] 500 mg PO Q8HR 7 Days #21 tablet 09/22/20 Unknown Rx predniSONE [Deltasone] 10 mg PO QDAY #40 tab 09/22/20 Unknown Rx ED Physical Exam - General Limitations: No Limitations General appearance: alert, in no apparent distress, other (Patient appears uncomfortable) - Head Head exam: Present: atraumatic, normocephalic - Eye Eye exam: Present: normal appearance. Absent: scleral icterus - Neck Neck exam: Present: normal inspection - Respiratory Respiratory exam: Present: wheezes, decreased breath sounds. Absent: respiratory distress, rales - Cardiovascular Cardiovascular Exam: Present: normal rhythm, tachycardia - GI/Abdominal GI/Abdominal exam: Present: soft. Absent: distended, tenderness - Extremities Exam Extremities exam: Present: full ROM - Back Exam Back exam: Absent: CVA tenderness (R) - Neurological Exam Neurological exam: Present: alert, oriented X3 - Psychiatric Psychiatric exam: Present: normal affect, normal mood - Skin Skin exam: Present: warm, dry, intact, normal color. Absent: rash, cyanosis, diaphoretic ED Course Vital Signs 10/05/20 10/05/20 09:25 12:04 Temperature 99.4 F 99.5 F Pulse Rate 120 H 105 H Respiratory 18 Rate Blood Pressure 130/84 125/76 [Right] O2 Sat by Pulse 94 97 Oximetry ED Medical Decision Making - Lab Data Result diagrams: 10/05/20 10:17 10/05/20 14:19 - Radiology Data Radiology results: report reviewed CHEST 2 VIEWS INDICATION / CLINICAL INFORMATION: cough and SOB. COMPARISON: Chest one view from 09/20/2020. FINDINGS: SUPPORT DEVICES: None. HEART / MEDIASTINUM: No significant abnormality. LUNGS / PLEURA: Bibasilar opacities have increased. The lungs are otherwise clear. No significant pleural effusion. No pneumothorax. ADDITIONAL FINDINGS: No significant additional findings. IMPRESSION: Increased bibasilar opacities could represent atelectasis or evolving pneumonia. Continued radiographic follow-up to resolution is recommended. - Medical Decision Making 55-year-old -[place] female patient presents with complaints of cough and shortness of breath x5 days. She also admits to decreased taste and smell and nausea, vomiting, and diarrhea without abdominal pain. Patient has history of hypertension and Crohn's disease and was admitted on 09/20/2020 for Crohn's flare. At that visit patient did receive IV antibiotics and was discharged on 09/22/2020. She does states she has some chest pain, however she states this is with the cough and denies any hemoptysis. Chest x-ray shows pneumonia versus atelectasis. Given patient's presentation and previous chest x-ray, findings are likely pneumonia on chest x-ray. Pulse ox noted to be 83% on room air with ambulation and 94% on room air at rest. Patient placed on 2 L nasal cannula of oxygen. White count is normal CBC. CMP, lactic acid, and blood cultures are pending. Discussed patient with Dr. Joseph who will admit patient to hospital medicine. Covid testing ordered. Patient is otherwise stable at this time. Critical care attestation.: If time is entered above; I have spent that time in minutes in the direct care of this critically ill patient, excluding procedure time. ED Disposition Clinical Impression: Hospital acquired PNA Disposition: OP ADMIT IP TO THIS HOSP Is pt being admited?: Yes Does the pt Need Aspirin: No Condition: Stable Instructions: Bacterial Pneumonia (ED) Referrals: PRIMARY CARE, [Primary Care Provider] - 3-5 Days
[2020-10-05 11:16] LABS: Basophils % (Auto) 0.4 % (0.0-1.8); Eosinophils % (Auto) 0.3 % (0.0-4.3); Hemoglobin 12.8 gm/dl (10.1-14.3); Lymphocytes # (Auto) 1.9 K/mm3 (1.2-5.4); Lymphocytes % (Auto) 22.7 % (13.4-35.0); Mean Corpuscular HGB Conc 32 % (30-34); Mean Corpuscular Volume 82 fl (79-97); Monocytes # (Auto) 0.5 K/mm3 (0.0-0.8); Monocytes % (Auto) 5.9 % (0.0-7.3); Platelet Count 625 K/mm3 (140-440); Red Blood Count 4.85 M/mm3 (3.65-5.03)
[2020-10-05 11:21] LABS: Red Cell Distribution Width 23.1 % (13.2-15.2)
[2020-10-05] MEDS ORDERED: PIPERACIL/TAZOBACTA 4.5/NS 100 4.5 GM/100 ML VIAL IV ONE (11:54)
[2020-10-05] MEDS ORDERED: PROMETHAZINE/CODEINE 6.25-10 MG ORAL LIQD 5 ML PO STA (12:04)
[2020-10-05] MEDS ORDERED: diphenhydrAMINE 25 MG CAP PO ONE (12:06)
[2020-10-05] MEDS ORDERED: BENZONATATE 100 MG CAP PO STA (14:06)
[2020-10-05] MEDS ORDERED: cefTRIAXone/NS 1 GM/50 ML 1 GM/50 ML BAG IV ONE (14:07)
[2020-10-05 15:16] LABS: Alanine Aminotransferase 11 units/L (7-56); Albumin 3.4 g/dL (3.9-5); Blood Urea Nitrogen 10 mg/dL (7-17); Calcium 8.4 mg/dL (8.4-10.2); Hemolysis Index 18
[2020-10-05 15:18] LABS: BUN/Creatinine Ratio 17
[2020-10-05] MEDS ORDERED: predniSONE 20 MG TAB PO ONE (15:50)
[2020-10-05] MEDS ORDERED: ACETAMINOPHEN 325 MG TAB PO PRN (18:31)
[2020-10-05] MEDS ORDERED: ALUM-MAG HYDROXIDE-SIMETHICONE 200-200-20MG/5ML ORAL LIQD 30 ML PO PRN (18:31)
--- NOTE | 2020-10-05 18:36 | Discharge Summary ---
Providers - Providers Date of discharge: 10/05/20 Primary care physician: DION SNEED MD Hospitalization Condition: Stable Disposition: DC-[id number] OP ADMIT IP TO THIS HOSP Exam - Constitutional Vitals: Temp Pulse Resp BP Pulse Ox 99.5 F 105 H 18 125/76 97 10/05/20 12:04 10/05/20 12:04 10/05/20 12:04 10/05/20 12:04 10/05/20 12:04 Plan Follow up with: DION SNEED MD [Primary Care Provider] - 3-5 Days
[2020-10-05] MEDS ORDERED: ONDANSETRON 4 MG/2 ML INJ IV PRN (18:39)
--- NOTE | 2020-10-05 18:39 | History and Physical Report ---
History of Present Illness Date of examination: 10/05/20 Date of admission: 10/05/2020 Chief complaint: Cough History of present illness: 54-year-old -[place] female with past medical history significant for hypertension and Crohn's disease comes in for cough and shortness of breath for 5 days. She also complains of decreased taste and smell and nausea and vomiting and diarrhea without abdominal pain. Patient was admitted on 09/20/2020 for post flareup and was discharged. At that time patient received IV antibiotics and was discharged on 09/22/2020. As per patient has no exposure to coronavirus. Cough productive of mucoid sputum. No body aches. - Past Medical History Previous Medical History?: Yes Hx Hypertension: Yes Additional medical history: Crohn's disease - Surgical History Past Surgical History?: No Additional Surgical History: Tonsils, CSection, Knee - Social History Smoking Status: Never Smoker - Medications Home Medications: Home Medications Medication Instructions Recorded Confirmed Last Taken Type Amitriptyline [Elavil] 25 mg PO QHS 09/20/20 09/20/20 09/05/20 21:00 History Acetaminophen [Acetaminophen TAB] 650 mg PO Q4H PRN tablet 09/22/20 Unknown Rx Antacid [Alum-Mag Hydrox-Simeth 30 ml PO Q4H PRN oral.liqd 09/22/20 Unknown Rx [id number]/5Ml] Ciprofloxacin HCl [Ciprofloxacin 750 mg PO DAILY 1 Days #1 tablet 09/22/20 Unknown Rx TAB] Docusate Sodium [Colace CAP] 100 mg PO BID capsule 09/22/20 Unknown Rx Isosorbide Dinitrate [Isordil] 10 mg PO DAILY #30 tablet 09/22/20 Unknown Rx Sennosides Tab [Senokot] 8.6 mg PO Q12HR tablet 09/22/20 Unknown Rx metroNIDAZOLE [Flagyl] 500 mg PO Q8HR 7 Days #21 tablet 09/22/20 Unknown Rx predniSONE [Deltasone] 10 mg PO QDAY #40 tab 09/22/20 Unknown Rx Review of Systems ROS: Stated complaint: CHEST PAIN, COUGH Other details as noted in HPI Constitutional: chills, malaise, weakness. denies: diaphoresis, fever ENT: denies: throat pain Respiratory: cough, shortness of breath Cardiovascular: chest pain (Secondary to cough per). denies: edema Endocrine: denies: excessive sweating Gastrointestinal: abdominal pain, nausea, vomiting, diarrhea Genitourinary: denies: urgency, dysuria, frequency, hematuria, discharge Skin: denies: change in color Neurological: denies: headache Hematological/Lymphatic: denies: swollen glands Medications and Allergies Allergies Allergy/AdvReac Type Severity Reaction Status Date / Time hydromorphone [From Dilaudid] Allergy Hives Verified 10/05/20 21:05 ketorolac [From Toradol] Allergy Hives Verified 10/05/20 21:05 Sulfa (Sulfonamide Allergy Hives Verified 10/05/20 21:05 Antibiotics) Home Medications Medication Instructions Recorded Confirmed Last Taken Type Amitriptyline [Elavil] 25 mg PO QHS 09/20/20 09/20/20 09/05/20 21:00 History Acetaminophen [Acetaminophen TAB] 650 mg PO Q4H PRN tablet 09/22/20 Unknown Rx Antacid [Alum-Mag Hydrox-Simeth 30 ml PO Q4H PRN oral.liqd 09/22/20 Unknown Rx [id number]/5Ml] Ciprofloxacin HCl [Ciprofloxacin 750 mg PO DAILY 1 Days #1 tablet 09/22/20 Unknown Rx TAB] Docusate Sodium [Colace CAP] 100 mg PO BID capsule 09/22/20 Unknown Rx Isosorbide Dinitrate [Isordil] 10 mg PO DAILY #30 tablet 09/22/20 Unknown Rx Sennosides Tab [Senokot] 8.6 mg PO Q12HR tablet 09/22/20 Unknown Rx metroNIDAZOLE [Flagyl] 500 mg PO Q8HR 7 Days #21 tablet 09/22/20 Unknown Rx predniSONE [Deltasone] 10 mg PO QDAY #40 tab 09/22/20 Unknown Rx Active Meds: Active Medications Acetaminophen (Tylenol) 650 mg PO Q4H PRN PRN Reason: Pain MILD(1-3)/Fever >100.5/MENA Al Hydrox/Mg Hydrox/Simethicone (Alum-Mag Hydrox-Simeth [id number]/5ml) 30 ml PO Q4H PRN PRN Reason: Indigestion Amitriptyline HCl (Elavil) 25 mg PO QHS [place] Docusate Sodium (Colace) 100 mg PO BID [place] Isosorbide Dinitrate (Isordil) 10 mg PO DAILY [place] Prednisone (Deltasone) 10 mg PO QDAY [facility] Senna (Senokot) 8.6 mg PO Q12HR [facility] Exam - Constitutional Vitals: Temp Pulse Resp BP Pulse Ox 99.5 F 105 H 18 125/76 97 10/05/20 12:04 10/05/20 12:04 10/05/20 12:04 10/05/20 12:04 10/05/20 12:04 General appearance: Present: mild distress, well-nourished - EENT Eyes: Present: PERRL ENT: hearing intact, clear oral mucosa - Neck Neck: Present: supple, normal ROM - Respiratory Respiratory effort: normal Respiratory: bilateral: CTA - Cardiovascular Heart rate: 78 Rhythm: regular Heart Sounds: Present: S1 & S2. Absent: rub, click - Extremities Extremities: no ischemia, pulses intact, pulses symmetrical, No edema Peripheral Pulses: within normal limits - Abdominal General gastrointestinal: Present: soft, non-tender, non-distended, normal bowel sounds Female genitourinary: Present: normal - Rectal Rectal Exam: deferred - Integumentary Integumentary: Present: clear, warm, dry - Musculoskeletal Musculoskeletal: gait normal, strength equal bilaterally - Psychiatric Psychiatric: appropriate mood/affect, intact judgment & insight - Neurologic Neurologic: CNII-XII intact, moves all extremities - Allied Health Allied health notes reviewed: nursing, case management Results - Labs CBC & Chem 7: 10/06/20 07:54 10/06/20 07:54 Labs: Laboratory Last Values WBC 8.4 K/mm3 (4.5-11.0) 10/05/20 10:17 RBC 4.85 M/mm3 (3.65-5.03) 10/05/20 10:17 Hgb 12.8 gm/dl (10.1-14.3) 10/05/20 10:17 Hct 40.0 % (30.3-42.9) 10/05/20 10:17 MCV 82 fl (79-97) 10/05/20 10:17 MCH 26 pg (28-32) L 10/05/20 10:17 MCHC 32 % (30-34) 10/05/20 10:17 RDW 23.1 % (13.2-15.2) H 10/05/20 10:17 Plt Count 625 K/mm3 (140-440) H 10/05/20 10:17 Lymph % (Auto) 22.7 % (13.4-35.0) 10/05/20 10:17 Levy % (Auto) 5.9 % (0.0-7.3) 10/05/20 10:17 Eos % (Auto) 0.3 % (0.0-4.3) 10/05/20 10:17 Baso % (Auto) 0.4 % (0.0-1.8) 10/05/20 10:17 Lymph # (Auto) 1.9 K/mm3 (1.2-5.4) 10/05/20 10:17 Levy # (Auto) 0.5 K/mm3 (0.0-0.8) 10/05/20 10:17 Eos # (Auto) 0.0 K/mm3 (0.0-0.4) 10/05/20 10:17 Baso # (Auto) 0.0 K/mm3 (0.0-0.1) 10/05/20 10:17 Seg Neutrophils % 70.7 % (40.0-70.0) H 10/05/20 10:17 Seg Neutrophils # 6.0 K/mm3 (1.8-7.7) 10/05/20 10:17 D-Dimer 249.45 ng/mlDDU (0-234) H 10/05/20 14:19 Sodium 137 mmol/L (137-145) 10/05/20 14:19 Potassium 3.8 mmol/L (3.6-5.0) 10/05/20 14:19 Chloride 96.8 mmol/L (98-107) L 10/05/20 14:19 Carbon Dioxide 26 mmol/L (22-30) 10/05/20 14:19 Anion Gap 18 mmol/L 10/05/20 14:19 BUN 10 mg/dL (7-17) 10/05/20 14:19 Creatinine 0.6 mg/dL (0.6-1.2) 10/05/20 14:19 Estimated GFR > 60 ml/min 10/05/20 14:19 BUN/Creatinine Ratio 17 % 10/05/20 14:19 Glucose 115 mg/dL (65-100) H 10/05/20 14:19 Lactic Acid 2.80 mmol/L (0.7-2.0) H* 10/05/20 16:41 Calcium 8.4 mg/dL (8.4-10.2) 10/05/20 14:19 Ferritin 263.4 ng/mL (10.0-200.0) H 10/05/20 14:19 Total Bilirubin 0.30 mg/dL (0.1-1.2) 10/05/20 14:19 AST 17 units/L (5-40) 10/05/20 14:19 ALT 11 units/L (7-56) 10/05/20 14:19 Alkaline Phosphatase 61 units/L (35-129) 10/05/20 14:19 Lactate Dehydrogenase 265 units/L (91-180) H 10/05/20 14:19 C-Reactive Protein 7.30 mg/dL (0.00-1.30) H 10/05/20 14:19 NT-Pro-B Natriuret Pep 27.80 pg/mL (0-900) 10/05/20 14:19 Total Protein 7.1 g/dL (6.3-8.2) 10/05/20 14:19 Albumin 3.4 g/dL (3.9-5) L 10/05/20 14:19 Albumin/Globulin Ratio 0.9 % 10/05/20 14:19 Short CBC 10/06/20 Range/Units 07:54 WBC 4.6 (4.5-11.0) K/mm3 Hgb 10.5 (10.1-14.3) gm/dl Hct 32.6 D (30.3-42.9) % Plt Count 504 H (140-440) K/mm3 BMP 10/06/20 07:54 Sodium 134 L Potassium 5.0 D Chloride 99.1 Carbon Dioxide 26 BUN 7 Creatinine 0.6 Glucose 116 H Calcium 8.7 Liver Function 10/06/20 Range/Units 07:54 Total Bilirubin 0.20 (0.1-1.2) mg/dL AST 16 (5-40) units/L ALT 10 (7-56) units/L Alkaline Phosphatase 57 (35-129) units/L Albumin 3.3 L (3.9-5) g/dL - Imaging and Cardiology Chest x-ray: report reviewed Imaging and Cardiology: IMPRESSION: Increased bibasilar opacities could represent atelectasis or evolving pneumonia. Continued radiographic follow-up to resolution is recommended. Signer Name: Saturnino Mccormack MD Signed: 10/05/2020 10:52 AM Workstation Name: [email or web address] [email or web address] Ayala/IV: IV Catheter Type [Left Wrist] INT / Saline Lock Assessment and Plan Advance Directives: Yes (Full code) VTE prophylaxis?: Chemical Plan of care discussed with patient/family: Yes - Patient Problems (1) Acute respiratory failure with hypoxia Current Visit: Yes Status: Acute Plan to address problem: Patient is intermittently hypoxic Titrate oxygen supplements according to her sats (2) SIRS (systemic inflammatory response syndrome) Current Visit: No Status: Acute Plan to address problem: Clinical picture consistent with Sirs Lactic acid elevated (3) Bilateral pneumonia Current Visit: Yes Status: Acute Plan to address problem: Treat as community-acquired pneumonia for now Patient started on ceftriaxone and Zithromax Coronavirus PCR to be done (4) Person under investigation for COVID-19 Current Visit: Yes Status: Acute Plan to address problem: Coronavirus PCR requested Patient started on IV Bactrim for for possible coronavirus infection (5) HTN (hypertension) Current Visit: No Status: Chronic Plan to address problem: Continue antihypertensives and adjust medications as necessary (6) DVT prophylaxis Current Visit: No Status: Acute Plan to address problem: Patient on Lovenox and GI prophylaxis
[2020-10-05] MEDS ORDERED: SODIUM CHLORIDE 0.9% 1000 ML 1,000 ML IV SCH (18:45)
[2020-10-05] MEDS ORDERED: HYDROmorphone 1 MG/1 ML INJ IV PRN (18:45)
[2020-10-05] MEDS ORDERED: METOCLOPRAMIDE 10 MG/2 ML INJ IV PRN (18:45)
[2020-10-05] MEDS: predniSONE 10 MG TAB PO SCH (18:54)
[2020-10-05] MEDS ORDERED: ENOXAPARIN 40 MG/0.4 ML INJ SUB-Q ONE (19:55)
[2020-10-05] MEDS: ENOXAPARIN 40 MG/0.4 ML INJ SUB-Q SCH (19:59)
[2020-10-05] MEDS: ISOSORBIDE DINITRATE 10 MG TAB PO SCH (19:59)
[2020-10-05] MEDS: AZITHROMYCIN 500 MG in SODIUM CHLORIDE 0.9% 250ML 250 ML IV SCH (20:00)
[2020-10-05] MEDS ORDERED: HYDROmorphone 1 MG/1 ML INJ ONE (20:03)
[2020-10-05 21:38] LABS: Bacteria,Urine 1+ /HPF (Negative); Bilirubin,Urine NEG (Negative); Blood,Urine NEG (Negative); Color,Urine Yellow (Yellow); Mucus,Urine FEW /HPF; Protein,Urine <15 mg/dL mg/dL (Negative)
[2020-10-05] MEDS ORDERED: ACETAMINOPHEN 325 MG TAB ONE (21:43)
[2020-10-05] MEDS: ACETAMINOPHEN 325 MG TAB PO PRN (21:45)
[2020-10-05] MEDS: guaiFENesin/CODEINE 100-10MG ORAL LIQD 5 ML PO PRN (21:45)
[2020-10-05] MEDS ORDERED: DOCUSATE SODIUM 100 MG CAP ONE (22:31)
[2020-10-05] MEDS ORDERED: FAMOTIDINE 20 MG TAB ONE (22:32)
[2020-10-05] MEDS: DOCUSATE SODIUM 100 MG CAP PO SCH (22:38)
[2020-10-05] MEDS: SENNOSIDES 8.6 MG TAB PO SCH (22:39)
[2020-10-05] MEDS: FAMOTIDINE 20 MG TAB PO SCH (22:39)
[2020-10-05] MEDS: AMITRIPTYLINE 25 MG TAB PO SCH (22:39)
[2020-10-06] MEDS: guaiFENesin/CODEINE 100-10MG ORAL LIQD 5 ML PO PRN ×4 (03:35→22:57)
[2020-10-06] MEDS: ACETAMINOPHEN 325 MG TAB PO PRN ×3 (03:40→22:58)
[2020-10-06] MEDS ORDERED: HYDROmorphone 1 MG/1 ML INJ IV PRN (08:24)
[2020-10-06 08:44] LABS: Eosinophils % (Auto) 0.1 % (0.0-4.3); Hematocrit 32.6 % (30.3-42.9); Hemoglobin 10.5 gm/dl (10.1-14.3); Lymphocytes # (Auto) 0.9 K/mm3 (1.2-5.4); Lymphocytes % (Auto) 20.1 % (13.4-35.0); Mean Corpuscular HGB Conc 32 % (30-34); Mean Corpuscular Volume 82 fl (79-97); Monocytes # (Auto) 0.5 K/mm3 (0.0-0.8); Monocytes % (Auto) 11.2 % (0.0-7.3); Platelet Count 504 K/mm3 (140-440); Red Blood Count 3.98 M/mm3 (3.65-5.03)
[2020-10-06 08:52] LABS: Alanine Aminotransferase 10 units/L (7-56); Albumin 3.3 g/dL (3.9-5); Blood Urea Nitrogen 7 mg/dL (7-17); Calcium 8.7 mg/dL (8.4-10.2); Hemolysis Index 61
[2020-10-06 08:55] LABS: Red Cell Distribution Width 22.3 % (13.2-15.2)
[2020-10-06 08:59] LABS: BUN/Creatinine Ratio 12
[2020-10-06] MEDS: SENNOSIDES 8.6 MG TAB PO SCH ×2 (10:21→22:57)
[2020-10-06] MEDS: DOCUSATE SODIUM 100 MG CAP PO SCH ×2 (10:42→22:57)
[2020-10-06] MEDS: predniSONE 10 MG TAB PO SCH (10:42)
[2020-10-06] MEDS: FAMOTIDINE 20 MG TAB PO SCH ×2 (10:42→22:57)
[2020-10-06] MEDS: ENOXAPARIN 40 MG/0.4 ML INJ SUB-Q SCH (10:42)
[2020-10-06] MEDS: ISOSORBIDE DINITRATE 10 MG TAB PO SCH (11:35)
[2020-10-06] MEDS: cefTRIAXone/NS 2 GM/100 ML 2 GM/100 ML BAG IV SCH (11:35)
[2020-10-06] MEDS: MORPHINE 2 MG/1 ML INJ IV PRN ×2 (11:37→16:43)
--- NOTE | 2020-10-06 15:52 | Progress Note ---
Assessment and Plan Assessment and Plan Advance Directives: Yes (Full code) VTE prophylaxis?: Chemical Plan of care discussed with patient/family: Yes - Patient Problems (1) Acute respiratory failure with hypoxia Current Visit: Yes Status: Acute Plan to address problem: Patient is intermittently hypoxic Titrate oxygen supplements according to her sats (2) SIRS (systemic inflammatory response syndrome) Current Visit: No Status: Acute Plan to address problem: Clinical picture consistent with Sirs Lactic acid elevated (3) Bilateral pneumonia Current Visit: Yes Status: Acute Plan to address problem: Treat as community-acquired pneumonia for now Patient started on ceftriaxone and Zithromax Coronavirus PCR to be done (4) Person under investigation for COVID-19 Current Visit: Yes Status: Acute Plan to address problem: Coronavirus PCR positive Patient started on IV Decadron for for possible coronavirus infection (5) HTN (hypertension) Current Visit: No Status: Chronic Plan to address problem: Continue antihypertensives and adjust medications as necessary (6) DVT prophylaxis Current Visit: No Status: Acute Plan to address problem: Patient on Lovenox and GI prophylaxis Subjective Date of service: 10/06/20 Principal diagnosis: Bilateral pneumonia, coronavirus positive Interval history: 54-year-old -[place] female with past medical history significant for hypertension and Crohn's disease comes in for cough and shortness of breath for 5 days. She also complains of decreased taste and smell and nausea and vomiting and diarrhea without abdominal pain. Patient was admitted on 09/20/2020 for post flareup and was discharged. At that time patient received IV antibiotics and was discharged on 09/22/2020. As per patient has no exposure to coronavirus. Cough productive of mucoid sputum. No body aches. Day #2 10/06/2020 Patient is positive for coronavirus PCR today Patient doing well Objective - Constitutional Vitals: Vital Signs - 12hr 10/06/20 11:35 Blood Pressure 120/76 General appearance: Present: no acute distress, well-nourished - EENT Eyes: PERRL, EOM intact ENT: hearing intact, clear oral mucosa Ears: bilateral: normal - Neck Neck: supple, normal ROM - Respiratory Respiratory effort: normal Respiratory: bilateral: CTA - Breasts Breasts: normal - Cardiovascular Heart rate: 78 Rhythm: regular Heart Sounds: Present: S1 & S2. Absent: gallop, rub Extremities: pulses intact, No edema, normal color, Full ROM - Gastrointestinal General gastrointestinal: Present: soft, non-tender, non-distended, normal bowel sounds - Genitourinary Female genitourinary: normal - Integumentary Integumentary: clear, warm, dry - Musculoskeletal Musculoskeletal: 1, strength equal bilaterally - Neurologic Neurologic: moves all extremities - Psychiatric Psychiatric: memory intact, appropriate mood/affect, intact judgment & insight - Labs CBC & Chem 7: 10/06/20 07:54 10/06/20 07:54 Labs: Abnormal lab results 10/05/20 10/05/20 10/06/20 Range/Units 16:41 18:57 07:54 MCH 26 L (28-32) pg RDW 22.3 H (13.2-15.2) % Plt Count 504 H (140-440) K/mm3 [place] % (Auto) 11.2 H (0.0-7.3) % Lymph # (Auto) 0.9 L (1.2-5.4) K/mm3 Sodium (137-145) mmol/L Glucose (65-100) mg/dL Hemoglobin A1c 7.3 H (4-6) % Lactic Acid 2.80 H* (0.7-2.0) mmol/L Albumin (3.9-5) g/dL Coronavirus (PCR) (Negative) 10/06/20 10/06/20 Range/Units 07:54 Unknown MCH (28-32) pg RDW (13.2-15.2) % Plt Count (140-440) K/mm3 [place] % (Auto) (0.0-7.3) % Lymph # (Auto) (1.2-5.4) K/mm3 Sodium 134 L (137-145) mmol/L Glucose 116 H (65-100) mg/dL Hemoglobin A1c (4-6) % Lactic Acid (0.7-2.0) mmol/L Albumin 3.3 L (3.9-5) g/dL Coronavirus (PCR) Positive A (Negative)
[2020-10-06] MEDS: AZITHROMYCIN 500 MG in SODIUM CHLORIDE 0.9% 250ML 250 ML IV SCH (16:43)
[2020-10-06] MEDS: AMITRIPTYLINE 25 MG TAB PO SCH (22:57)
[2020-10-07] MEDS: ENOXAPARIN 40 MG/0.4 ML INJ SUB-Q SCH (11:20)
[2020-10-07] MEDS: cefTRIAXone/NS 2 GM/100 ML 2 GM/100 ML BAG IV SCH (11:20)
[2020-10-07] MEDS: AZITHROMYCIN 500 MG in SODIUM CHLORIDE 0.9% 250ML 250 ML IV SCH (11:20)
[2020-10-07] MEDS: FAMOTIDINE 20 MG TAB PO SCH ×2 (11:21→21:46)
[2020-10-07] MEDS: SENNOSIDES 8.6 MG TAB PO SCH ×2 (11:21→21:46)
[2020-10-07] MEDS: predniSONE 10 MG TAB PO SCH (11:21)
[2020-10-07] MEDS: DOCUSATE SODIUM 100 MG CAP PO SCH ×2 (11:24→21:46)
[2020-10-07] MEDS: ISOSORBIDE DINITRATE 10 MG TAB PO SCH (11:24)
[2020-10-07] MEDS: MORPHINE 2 MG/1 ML INJ IV PRN ×2 (11:28→22:28)
--- NOTE | 2020-10-07 12:52 | Progress Note ---
Assessment and Plan - Patient Problems (1) Sepsis Current Visit: Yes Status: Acute Qualifiers: Acute respiratory failure type: with hypoxia Plan to address problem: Patient presented with a low-grade fever of 99.5, tachycardia, lactic acidosis, hypoxic on ambulation and a COVID-19 PCR was positive. Infectious disease consulted Antibiotic therapy 10/05 BC x2 no growth to date (2) Pneumonia due to COVID-19 virus Current Visit: Yes Status: Acute Plan to address problem: 10/06 COVID-19 PCR positive ID consulted Azithromycin and cefepime initiated, azithromycin changed to p.o. on 10/07 due to lack of IV access OOB 3 times daily Trend inflammatory markers Droplet/Contact precautions Pulmonary hygiene Dexamethasone 6 mg daily for 10 days Supplementary oxygenation as needed (3) Acute respiratory failure with hypoxia Current Visit: Yes Status: Acute Plan to address problem: Patient was hypoxic on ambulation in the ED Supplemental oxygen as needed Pulmonary hygiene (4) Hyponatremia Current Visit: No Status: Acute Plan to address problem: 10/02 sodium 134 Trend BMP Monitor for neuro changes Slight decrease which may be clinically insignificant (5) Hypochloremia Current Visit: No Status: Resolved Plan to address problem: 10/05 chloride 96.8 10/06 chloride 98.1 Trend BMP (6) Crohn's disease Current Visit: Yes Status: Chronic Plan to address problem: Patient was recently discharged in August for acute Crohn's flareup Patient was instructed to follow-up with GI outpatient for colonoscopy and possible initiation of immunologic's Continue home prednisone and Pepcid Supportive care (7) HTN (hypertension) Current Visit: No Status: Chronic Plan to address problem: Continue home antihypertensive regimen Blood pressure monitoring per protocol Hydralazine as needed for SBP greater than 160 (8) Diabetes mellitus Current Visit: Yes Status: Chronic Plan to address problem: 10/05 hemoglobin A1c 7.3 Accu-Cheks AC at bedtime SSI CC diet (9) Lactic acidosis Current Visit: Yes Status: Acute Plan to address problem: Presented with a lactic acid of 2.1 10/05 lactic acid 2.8 10/07 lactic acid pending Secondary to COVID-19 infection (10) DVT prophylaxis Current Visit: No Status: Acute History Interval history: 54-year-old -[place] female with hypertension and Crohn's disease presents to the emergency department on 10/05 with a complaint of cough and shortness of breath for 5 days with decreased taste and smell, nausea and vomiting and diarrhea without abdominal pain .Patient presented to the emergency department with low-grade fever of 99.5, tachycardia and she was hypoxic on ambulation. Work-up in the emergency department revealed thrombocytosis, hyponatremia and her chest x-ray showed increased bibasilar opacities which represent atelectasis or evolving pneumonia. Patient was admitted to the hospital service as a COVID-19 PUI and initiated on azithromycin and cefepime and infectious disease was consulted. No acute events reported overnight. This morning her RN informs me that patient is a hard stick and her multiple IVs have infiltrated therefore her azithromycin has been changed to p.o. At the time of my exam patient remains on supplemental oxygenation and is tearful. She asked me if her COVID-19 PCR was positive which I informed her was. Patient was tearful and stated she was not informed. Per the RN patient was informed yesterday by Dr. Cyr. 10/06: COVID-19 PCR positive Hospitalist Physical - Constitutional Vitals: Temp Pulse Resp BP Pulse Ox 98.1 F 101 H 18 139/89 93 10/07/20 04:42 10/07/20 04:42 10/07/20 04:42 10/07/20 04:42 10/07/20 04:42 General appearance: Present: no acute distress, well-nourished - EENT Eyes: Present: PERRL, EOM intact ENT: hearing intact, clear oral mucosa - Neck Neck: Present: supple, normal ROM - Respiratory Respiratory effort: normal Respiratory: bilateral: diminished - Cardiovascular Rhythm: regular Heart Sounds: Present: S1 & S2. Absent: systolic murmur, diastolic murmur - Extremities Extremities: no ischemia, pulses intact, pulses symmetrical, No edema, normal temperature, normal color, Full ROM Peripheral Pulses: within normal limits - Abdominal General gastrointestinal: soft, non-tender, non-distended, normal bowel sounds - Integumentary Integumentary: Present: warm, dry - Psychiatric Psychiatric: appropriate mood/affect, cooperative - Neurologic Neurologic: CNII-XII intact, no focal deficits, moves all extremities - Allied Health Allied health notes reviewed: nursing Results - Labs CBC & Chem 7: 10/06/20 07:54 10/06/20 07:54 Labs: Laboratory Last Values WBC 4.6 K/mm3 (4.5-11.0) 10/06/20 07:54 RBC 3.98 M/mm3 (3.65-5.03) 10/06/20 07:54 Hgb 10.5 gm/dl (10.1-14.3) 10/06/20 07:54 Hct 32.6 % (30.3-42.9) D 10/06/20 07:54 MCV 82 fl (79-97) 10/06/20 07:54 MCH 26 pg (28-32) L 10/06/20 07:54 MCHC 32 % (30-34) 10/06/20 07:54 RDW 22.3 % (13.2-15.2) H 10/06/20 07:54 Plt Count 504 K/mm3 (140-440) H 10/06/20 07:54 Lymph % (Auto) 20.1 % (13.4-35.0) 10/06/20 07:54 [place] % (Auto) 11.2 % (0.0-7.3) H 10/06/20 07:54 Eos % (Auto) 0.1 % (0.0-4.3) 10/06/20 07:54 Baso % (Auto) 0.0 % (0.0-1.8) 10/06/20 07:54 Lymph # (Auto) 0.9 K/mm3 (1.2-5.4) L 10/06/20 07:54 [place] # (Auto) 0.5 K/mm3 (0.0-0.8) 10/06/20 07:54 Eos # (Auto) 0.0 K/mm3 (0.0-0.4) 10/06/20 07:54 Baso # (Auto) 0.0 K/mm3 (0.0-0.1) 10/06/20 07:54 Seg Neutrophils % 68.6 % (40.0-70.0) 10/06/20 07:54 Seg Neutrophils # 3.1 K/mm3 (1.8-7.7) 10/06/20 07:54 D-Dimer 249.45 ng/mlDDU (0-234) H 10/05/20 14:19 Sodium 134 mmol/L (137-145) L 10/06/20 07:54 Potassium 5.0 mmol/L (3.6-5.0) D 10/06/20 07:54 Chloride 99.1 mmol/L (98-107) 10/06/20 07:54 Carbon Dioxide 26 mmol/L (22-30) 10/06/20 07:54 Anion Gap 14 mmol/L 10/06/20 07:54 BUN 7 mg/dL (7-17) 10/06/20 07:54 Creatinine 0.6 mg/dL (0.6-1.2) 10/06/20 07:54 Estimated GFR > 60 ml/min 10/06/20 07:54 BUN/Creatinine Ratio 12 % 10/06/20 07:54 Glucose 116 mg/dL (65-100) H 10/06/20 07:54 Hemoglobin A1c 7.3 % (4-6) H 10/05/20 18:57 Lactic Acid 2.80 mmol/L (0.7-2.0) H* 10/05/20 16:41 Calcium 8.7 mg/dL (8.4-10.2) 10/06/20 07:54 Ferritin 263.4 ng/mL (10.0-200.0) H 10/05/20 14:19 Total Bilirubin 0.20 mg/dL (0.1-1.2) 10/06/20 07:54 AST 16 units/L (5-40) 10/06/20 07:54 ALT 10 units/L (7-56) 10/06/20 07:54 Alkaline Phosphatase 57 units/L (35-129) 10/06/20 07:54 Lactate Dehydrogenase 265 units/L (91-180) H 10/05/20 14:19 C-Reactive Protein 7.30 mg/dL (0.00-1.30) H 10/05/20 14:19 NT-Pro-B Natriuret Pep 27.80 pg/mL (0-900) 10/05/20 14:19 Total Protein 6.7 g/dL (6.3-8.2) 10/06/20 07:54 Albumin 3.3 g/dL (3.9-5) L 10/06/20 07:54 Albumin/Globulin Ratio 1.0 % 10/06/20 07:54 Procalcitonin < 0.05 ng/mL (<0.15) 10/05/20 14:19 Urine Color Yellow (Yellow) 10/05/20 21:15 Urine Turbidity Clear (Clear) 10/05/20 21:15 Urine pH 5.0 (5.0-7.0) 10/05/20 21:15 Ur Specific Campbell 1.015 (1.003-1.030) 10/05/20 21:15 Urine Protein <15 mg/dl mg/dL (Negative) 10/05/20 21:15 Urine Glucose (UA) 50 mg/dL (Negative) 10/05/20 21:15 Urine Ketones Neg mg/dL (Negative) 10/05/20 21:15 Urine Blood Neg (Negative) 10/05/20 21:15 Urine Nitrite Neg (Negative) 10/05/20 21:15 Urine Bilirubin Neg (Negative) 10/05/20 21:15 Urine Urobilinogen 4.0 mg/dL (<2.0) 10/05/20 21:15 Ur Leukocyte Esterase Neg (Negative) 10/05/20 21:15 Urine WBC (Auto) 2.0 /HPF (0.0-6.0) 10/05/20 21:15 Urine RBC (Auto) 4.0 /HPF (0.0-6.0) 10/05/20 21:15 U Epithel Cells (Auto) 3.0 /HPF (0-13.0) 10/05/20 21:15 Urine Bacteria (Auto) 1+ /HPF (Negative) 10/05/20 21:15 Urine Mucus Few /HPF 10/05/20 21:15 Coronavirus (PCR) Positive (Negative) A 10/06/20 Unknown Microbiology: Microbiology 10/05/20 14:33 Peripheral/Venous Blood Culture - Preliminary NO GROWTH AFTER 24 HOURS 10/05/20 14:19 Peripheral/Venous Blood Culture - Preliminary NO GROWTH AFTER 24 HOURS Ayala/IV: Voiding Method Toilet IV Catheter Type [Right Upper INT / Saline Lock arm] IV Catheter Type [Left Wrist] INT / Saline Lock Active Medications - Current Medications Current Medications: Generic Name Dose Route Start Last Admin Trade Name Freq PRN Reason Stop Dose Admin Acetaminophen 650 mg 10/05/20 18:39 10/06/20 22:58 Tylenol PO 650 mg Q4H PRN Administration Pain MILD(1-3)/Fever >100.5/MENA Al Hydrox/Mg Hydrox/Simethicone 30 ml 10/05/20 18:31 Alum-Mag Hydrox-Simeth [phone]/5ml PO Q4H PRN Indigestion Amitriptyline HCl 25 mg 10/05/20 22:00 10/06/20 22:57 Elavil PO 25 mg QHS GUANAKO Administration Azithromycin 500 mg 10/07/20 13:00 Zithromax PO 10/09/20 23:59 QDAY GUANAKO Docusate Sodium 100 mg 10/05/20 22:00 10/07/20 11:24 Colace PO 100 mg BID GUANAKO Administration Enoxaparin Sodium 40 mg 10/05/20 19:00 10/07/20 11:20 Enoxaparin SUB-Q 40 mg QDAY GUANAKO Administration Famotidine 20 mg 10/05/20 22:00 10/07/20 11:21 Pepcid PO 20 mg BID GUANAKO Administration Ceftriaxone Sodium 2 gm in 100 mls @ 200 mls/hr 10/06/20 10:00 10/07/20 11:20 Rocephin/Ns 2 Gm/100 Ml IV 200 mls/hr Q24HR GUANAKO Administration Protocol Isosorbide Dinitrate 10 mg 10/05/20 19:00 10/07/20 11:24 Isordil PO 10 mg DAILY GUANAKO Administration Metoclopramide HCl 10 mg 10/05/20 18:45 Reglan IV Q6H PRN Nausea And Vomiting Morphine Sulfate 2 mg 10/06/20 11:12 10/07/20 11:28 Morphine IV 2 mg Q4H PRN Administration Pain, Moderate (4-6) Ondansetron HCl 4 mg 10/05/20 18:39 10/06/20 16:44 Zofran IV 4 mg Q3H PRN Administration Nausea And Vomiting Prednisone 10 mg 10/05/20 19:00 10/07/20 11:21 Deltasone PO 10 mg QDAY GUANAKO Administration Pseudoephedrine/Acetam/Chlorphenir 10 ml 10/05/20 18:52 10/06/20 22:57 Robitussin Ac PO 10 ml QID PRN Administration Cough Senna 8.6 mg 10/05/20 22:00 10/07/20 11:21 Senokot PO 8.6 mg Q12HR GUANAKO Administration Sodium Chloride 10 ml 10/05/20 22:00 10/07/20 11:22 Sodium Chloride Flush Syringe 10 Ml IV 10 ml BID GUANAKO Administration Sodium Chloride 10 ml 10/05/20 18:39 Sodium Chloride Flush Syringe 10 Ml IV PRN PRN LINE FLUSH
[2020-10-07] MEDS ORDERED: DEXTROSE 50% IN WATER (25GM) 50 ML SYRINGE IV PRN (12:55)
[2020-10-07] MEDS ORDERED: SODIUM POLYSTYRENE 15 GM/60 ML ORAL LIQD PO NR (16:26)
[2020-10-07] MEDS: INSULIN LISPRO 100 UNIT/ML VIAL 3 mL SUB-Q SCH ×2 (16:30→22:19)
--- NOTE | 2020-10-07 17:17 | Consultation ---
History of Present Illness - Reason for Consult Consult date: 10/07/20 COVID-19 Requesting physician: DARLENE BARROS - History of Present Illness 55 years old female with history of hypertension and Crohn's disease, admitted on due to 5-day history of cough, loss of taste and smell, nausea, vomiting, diarrhea. Patient denies abdominal pain. Patient denies any exposure to COVID- 19. Patient had a recent flare of her Crohn's disease. On arrival, temperature 99.4, HR 120, O2 sat 94% when down to 88%. Initial WBC 8.4. D-dimer 249. Lactate 3.1. Ferritin 263. Procalcitonin normal. Chest x-ray with bilateral opacities. Urinalysis negative. Review of Systems: reviewed ED and H&P notes. Limited due to PPE conservation strategy Medications and Allergies Allergies Allergy/AdvReac Type Severity Reaction Status Date / Time hydromorphone [From Dilaudid] Allergy Hives Verified 10/05/20 21:05 ketorolac [From Toradol] Allergy Hives Verified 10/05/20 21:05 Sulfa (Sulfonamide Allergy Hives Verified 10/05/20 21:05 Antibiotics) Home Medications Medication Instructions Recorded Confirmed Last Taken Type Amitriptyline [Elavil] 25 mg PO QHS 09/20/20 09/20/20 09/05/20 21:00 History Acetaminophen [Acetaminophen TAB] 650 mg PO Q4H PRN tablet 09/22/20 Unknown Rx Antacid [Alum-Mag Hydrox-Simeth 30 ml PO Q4H PRN oral.liqd 09/22/20 Unknown Rx [id number]/5Ml] Ciprofloxacin HCl [Ciprofloxacin 750 mg PO DAILY 1 Days #1 tablet 09/22/20 Unknown Rx TAB] Docusate Sodium [Colace CAP] 100 mg PO BID capsule 09/22/20 Unknown Rx Isosorbide Dinitrate [Isordil] 10 mg PO DAILY #30 tablet 09/22/20 Unknown Rx Sennosides Tab [Senokot] 8.6 mg PO Q12HR tablet 09/22/20 Unknown Rx metroNIDAZOLE [Flagyl] 500 mg PO Q8HR 7 Days #21 tablet 09/22/20 Unknown Rx predniSONE [Deltasone] 10 mg PO QDAY #40 tab 09/22/20 Unknown Rx Active Meds: Active Medications Acetaminophen (Tylenol) 650 mg PO Q4H PRN PRN Reason: Pain MILD(1-3)/Fever >100.5/MENA Last Admin: 10/06/20 22:58 Dose: 650 mg Documented by: Al Hydrox/Mg Hydrox/Simethicone (Alum-Mag Hydrox-Simeth [phone]/5ml) 30 ml PO Q4H PRN PRN Reason: Indigestion Amitriptyline HCl (Elavil) 25 mg PO QHS [facility] Last Admin: 10/06/20 22:57 Dose: 25 mg Documented by: Azithromycin (Zithromax) 500 mg PO QDAY [facility] Stop: 10/09/20 09:59 Dextrose (D50w (25gm) Syringe) 50 ml IV Q30MIN PRN; Protocol PRN Reason: Hypoglycemia Docusate Sodium (Colace) 100 mg PO BID [facility] Last Admin: 10/07/20 11:24 Dose: 100 mg Documented by: Enoxaparin Sodium (Enoxaparin) 40 mg SUB-Q QDAY [facility] Last Admin: 10/07/20 11:20 Dose: 40 mg Documented by: Famotidine (Pepcid) 20 mg PO BID [facility] Last Admin: 10/07/20 11:21 Dose: 20 mg Documented by: Ceftriaxone Sodium (Rocephin/Ns 2 Gm/100 Ml) 2 gm in 100 mls @ 200 mls/hr IV Q24HR [facility]; Protocol Last Admin: 10/07/20 11:20 Dose: 200 mls/hr Documented by: Insulin Human Lispro (Humalog) 0 unit SUB-Q [facility]; Protocol Isosorbide Dinitrate (Isordil) 10 mg PO DAILY [facility] Last Admin: 10/07/20 11:24 Dose: 10 mg Documented by: Metoclopramide HCl (Reglan) 10 mg IV Q6H PRN PRN Reason: Nausea And Vomiting Morphine Sulfate (Morphine) 2 mg IV Q4H PRN PRN Reason: Pain, Moderate (4-6) Last Admin: 10/07/20 11:28 Dose: 2 mg Documented by: Ondansetron HCl (Zofran) 4 mg IV Q3H PRN PRN Reason: Nausea And Vomiting Last Admin: 10/06/20 16:44 Dose: 4 mg Documented by: Prednisone (Deltasone) 10 mg PO QDAY [facility] Last Admin: 10/07/20 11:21 Dose: 10 mg Documented by: Pseudoephedrine/Acetam/Chlorphenir (Robitussin Ac) 10 ml PO QID PRN PRN Reason: Cough Last Admin: 10/06/20 22:57 Dose: 10 ml Documented by: Senna (Senokot) 8.6 mg PO Q12HR [facility] Last Admin: 10/07/20 11:21 Dose: 8.6 mg Documented by: Sodium Chloride (Sodium Chloride Flush Syringe 10 Ml) 10 ml IV BID [facility] Last Admin: 10/07/20 11:22 Dose: 10 ml Documented by: Sodium Chloride (Sodium Chloride Flush Syringe 10 Ml) 10 ml IV PRN PRN PRN Reason: LINE FLUSH Sodium Polystyrene Sulfonate (Kionex) 30 gm PO ONCE NR Stop: 10/07/20 19:00 Physical Examination - Physical Exam Narrative exam: Physical Exam: reviewed ED and hospitalist notes, limited due to conservation of PPE and decrease risk of transmission. General appearance: limited due to conservation of PPE Eyes: limited due to conservation of PPE HENT: Atraumatic; limited due to conservation of PPE Lungs: limited due to conservation of PPE CV: limited due to conservation of PPE Abdomen: limited due to conservation of PPE Extremities: limited due to conservation of PPE Skin: limited due to conservation of PPE Psych: limited due to conservation of PPE Neuro: limited due to conservation of PPE - Constitutional Vitals: Vital Signs Temp Pulse Resp BP Pulse Ox 98.1 F 107 H 18 122/82 95 10/07/20 16:28 10/07/20 16:28 10/07/20 16:28 10/07/20 16:28 10/07/20 16:28 Temperature -Last 24 Hours Temperature 98.1 F Temperature 98.1 F Temperature 98.1 F Temperature 97.4 F Results - Labs CBC & Chem 7: 10/06/20 07:54 10/06/20 07:54 Assessment and Plan Cultures: Blood culture 10/05/2020 no growth today SARS CoV2 PCR positive Assessment: 55 years old female with history of hypertension and Crohn's disease, admitted on due to 5-day history of cough, loss of taste and smell, nausea, vomiting, diarrhea: #Severe sepsis: Present on admission with low-grade fever, tachycardia, elevated lactate, hypoxia likely due to bilateral pneumonia. Urinalysis negative. #Severe COVID pneumonia: Inflammatory markers mildly elevated. #Acute hypoxemic respiratory failure: Currently on nasal cannula oxygen. #PAUL: from COVID Recommendations: -Start Dexamethasone 6 mg IV/PO daily for 10 days -Start Remdesivir 200 mg IV q day x 1 day followed by 100 mg IV q day x 4 days (CrCl>30. Order placed) -Monitor inflammatory markers - ferritin, Ddimer, CRP, LDH -Continue ceftriaxone and azithromycin, however will probably stop soon if cultures negative as procalcitonin <0.25 ng/mL -Monitor liver function test on Remdesivir -Continue anticoagulation per System Protocol -Prone positioning as possible -Obtain SARS CoV-2 IgG to determine if patient is a candidate for COVID convalescent plasma All laboratory, cultures and imaging were reviewed. Discussed with attending. Will follow Luz Marina Lowery MD Infectious Diseases [employer] [facility] ([facility]) M [phone] O [phone]
[2020-10-07] MEDS: SODIUM CHLORIDE 0.9% 50 ML IVPB IV SCH (18:33)
[2020-10-07] MEDS ORDERED: SODIUM POLYSTYRENE 15 GM/60 ML ORAL LIQD PO ONE (19:00)
[2020-10-07] MEDS ORDERED: REMDESIVIR 200 MG in SODIUM CHLORIDE 0.9% 250ML 250 ML IV ONE (19:00)
[2020-10-07] MEDS ORDERED: REMDESIVIR 100 MG VIAL IV ONE (19:00)
[2020-10-07] MEDS: AMITRIPTYLINE 25 MG TAB PO SCH (21:46)
[2020-10-08 06:46] LABS: Blood Urea Nitrogen 7 mg/dL (7-17); Calcium 8.4 mg/dL (8.4-10.2); Hemolysis Index 1
[2020-10-08 06:48] LABS: BUN/Creatinine Ratio 14
[2020-10-08] MEDS: INSULIN LISPRO 100 UNIT/ML VIAL 3 mL SUB-Q SCH ×3 (07:30→16:30)
[2020-10-08] MEDS ORDERED: POTASSIUM CHLORIDE ER 20 MEQ TAB PO NR (07:30)
[2020-10-08] MEDS: cefTRIAXone/NS 2 GM/100 ML 2 GM/100 ML BAG IV SCH (09:12)
[2020-10-08] MEDS: SENNOSIDES 8.6 MG TAB PO SCH ×2 (09:12→21:13)
[2020-10-08] MEDS: ISOSORBIDE DINITRATE 10 MG TAB PO SCH (09:12)
[2020-10-08] MEDS: DOCUSATE SODIUM 100 MG CAP PO SCH ×2 (09:13→21:13)
[2020-10-08] MEDS: ENOXAPARIN 40 MG/0.4 ML INJ SUB-Q SCH (09:13)
[2020-10-08] MEDS: FAMOTIDINE 20 MG TAB PO SCH ×2 (09:13→21:13)
[2020-10-08] MEDS: predniSONE 10 MG TAB PO SCH (09:13)
[2020-10-08] MEDS ORDERED: AZITHROMYCIN 250 MG TAB PO SCH (10:00)
--- NOTE | 2020-10-08 11:10 | Progress Note ---
Assessment and Plan Cultures: Blood culture 10/05/2020 no growth today SARS CoV2 PCR positive Assessment: 55 years old female with history of hypertension and Crohn's disease, admitted on due to 5-day history of cough, loss of taste and smell, nausea, vomiting, diarrhea: #Severe sepsis: Present on admission with low-grade fever, tachycardia, elevated lactate, hypoxia likely due to bilateral pneumonia. Urinalysis negative. #Severe COVID pneumonia: Inflammatory markers mildly elevated. #Acute hypoxemic respiratory failure: Currently on room air #PAUL: from COVID Recommendations: -If patient is on room air, will obtain exercise pulse ox if okay discharge patient -Continue dexamethasone 6 mg IV/PO daily for 10 days -Continue remdesivir day 2 of 5 -Monitor inflammatory markers - ferritin, Ddimer, CRP, LDH -Continue ceftriaxone and azithromycin, however will probably stop soon if cultures negative as procalcitonin <0.25 ng/mL -Monitor liver function test on Remdesivir -Continue anticoagulation per System Protocol -Prone positioning as possible Will follow Luz Marina Lowery MD Infectious Diseases Associate Editor [facility] ([facility]) M [phone] O [phone] Subjective Date of service: 10/08/20 Principal diagnosis: Bilateral pneumonia, coronavirus positive Interval history: Remains on room air Objective - Exam Narrative Exam: Physical Exam: reviewed ED and hospitalist notes, limited due to conservation of PPE and decrease risk of transmission. General appearance: limited due to conservation of PPE Eyes: limited due to conservation of PPE HENT: Atraumatic; limited due to conservation of PPE Lungs: limited due to conservation of PPE CV: limited due to conservation of PPE Abdomen: limited due to conservation of PPE Extremities: limited due to conservation of PPE Skin: limited due to conservation of PPE Psych: limited due to conservation of PPE Neuro: limited due to conservation of PPE - Constitutional Vitals: Vital Signs Temp Pulse Resp BP Pulse Ox 99.0 F 105 H 16 113/71 93 10/08/20 10:49 10/08/20 10:49 10/08/20 10:49 10/08/20 10:49 10/08/20 10:49 Temperature -Last 24 Hours Temperature 99.0 F Temperature 98.6 F Temperature 98.5 F Temperature 98.1 F - Labs CBC & Chem 7: 10/06/20 07:54 10/08/20 05:47 Labs: Abnormal lab results 10/08/20 Range/Units 05:47 Potassium 3.1 L D (3.6-5.0) mmol/L Creatinine 0.5 L (0.6-1.2) mg/dL Glucose 108 H (65-100) mg/dL
--- NOTE | 2020-10-08 11:49 | Progress Note ---
Assessment and Plan - Patient Problems (1) Sepsis Current Visit: Yes Status: Acute Qualifiers: Acute respiratory failure type: with hypoxia Plan to address problem: Patient presented with a low-grade fever of 99.5, tachycardia, lactic acidosis, hypoxic on ambulation and a COVID-19 PCR was positive. Infectious disease consulted Antibiotic therapy 10/05 BC x2 no growth to date (2) Pneumonia due to COVID-19 virus Current Visit: Yes Status: Acute Plan to address problem: 10/06 COVID-19 PCR positive ID consulted Azithromycin and cefepime initiated, azithromycin changed to p.o. on 10/07 due to lack of IV access however may stop soon given normal CRP. OOB 3 times daily Trend inflammatory markers Droplet/Contact precautions Pulmonary hygiene Dexamethasone 6 mg daily for 10 days Supplementary oxygenation as needed Patient initiated on remdesivir therapy per ID on 10/07 Prone to sleep as needed (3) Acute respiratory failure with hypoxia Current Visit: Yes Status: Acute Plan to address problem: Patient was hypoxic on ambulation in the ED Supplemental oxygen as needed Pulmonary hygiene (4) Hyponatremia Current Visit: No Status: Resolved Plan to address problem: 10/02 sodium 134, 10/08 sodium 139 Trend BMP Monitor for neuro changes Slight decrease which may be clinically insignificant (5) Crohn's disease Current Visit: Yes Status: Chronic Plan to address problem: Patient was recently discharged in August for acute Crohn's flareup Patient was instructed to follow-up with GI outpatient for colonoscopy and possible initiation of immunologic's Continue home prednisone and Pepcid Supportive care (6) HTN (hypertension) Current Visit: No Status: Chronic Plan to address problem: Continue home antihypertensive regimen Blood pressure monitoring per protocol Hydralazine as needed for SBP greater than 160 (7) Diabetes mellitus Current Visit: Yes Status: Chronic Plan to address problem: 10/05 hemoglobin A1c 7.3 Accu-Cheks AC at bedtime SSI CC diet (8) Lactic acidosis Current Visit: Yes Status: Resolved Plan to address problem: Presented with a lactic acid of 2.1 10/05 lactic acid 2.8 10/08 lactic acid 0.8 Secondary to COVID-19 infection (9) Hypokalemia Current Visit: No Status: Acute Plan to address problem: 10/08 potassium 3.1 Replete Trend potassium Replete as necessary (10) DVT prophylaxis Current Visit: No Status: Acute Plan to address problem: SCDs to BLE while in bed Lovenox subcu History Interval history: 54-year-old -[place] female with hypertension and Crohn's disease presents to the emergency department on 10/05 with a complaint of cough and shortness of breath for 5 days with decreased taste and smell, nausea and vomiting and diarrhea without abdominal pain .Patient presented to the emergency department with low-grade fever of 99.5, tachycardia and she was hypoxic on ambulation. Work-up in the emergency department revealed thrombocytosis, hyponatremia and her chest x-ray showed increased bibasilar opacities which represent atelectasis or evolving pneumonia. Patient was admitted to the hospital service as a COVID-19 PUI and initiated on azithromycin and cefepime and infectious disease was consulted. No acute events reported overnight. ID initiated the patient on remdesiver today. She in on intermittent oxygenation. No acute events reported overnight. 10/06: COVID-19 PCR positive 10/07: This morning her RN informs me that patient is a hard stick and her multiple IVs have infiltrated therefore her azithromycin has been changed to p.o. At the time of my exam patient remains on supplemental oxygenation and is tearful. She asked me if her COVID-19 PCR was positive which I informed her was. Patient was tearful and stated she was not informed. Per the RN patient was informed yesterday by Dr. Cyr. Hospitalist Physical - Physical exam Narrative exam: PE not conducted in attempt to conserve PPE and decrease exposure - Constitutional Vitals: Temp Pulse Resp BP Pulse Ox 99.0 F 105 H 16 113/71 93 10/08/20 10:49 10/08/20 10:49 10/08/20 10:49 10/08/20 10:49 10/08/20 10:49 Results - Labs CBC & Chem 7: 10/06/20 07:54 10/08/20 05:47 Labs: Laboratory Last Values WBC 4.6 K/mm3 (4.5-11.0) 10/06/20 07:54 RBC 3.98 M/mm3 (3.65-5.03) 10/06/20 07:54 Hgb 10.5 gm/dl (10.1-14.3) 10/06/20 07:54 Hct 32.6 % (30.3-42.9) D 10/06/20 07:54 MCV 82 fl (79-97) 10/06/20 07:54 MCH 26 pg (28-32) L 10/06/20 07:54 MCHC 32 % (30-34) 10/06/20 07:54 RDW 22.3 % (13.2-15.2) H 10/06/20 07:54 Plt Count 504 K/mm3 (140-440) H 10/06/20 07:54 Lymph % (Auto) 20.1 % (13.4-35.0) 10/06/20 07:54 [place] % (Auto) 11.2 % (0.0-7.3) H 10/06/20 07:54 Eos % (Auto) 0.1 % (0.0-4.3) 10/06/20 07:54 Baso % (Auto) 0.0 % (0.0-1.8) 10/06/20 07:54 Lymph # (Auto) 0.9 K/mm3 (1.2-5.4) L 10/06/20 07:54 [place] # (Auto) 0.5 K/mm3 (0.0-0.8) 10/06/20 07:54 Eos # (Auto) 0.0 K/mm3 (0.0-0.4) 10/06/20 07:54 Baso # (Auto) 0.0 K/mm3 (0.0-0.1) 10/06/20 07:54 Seg Neutrophils % 68.6 % (40.0-70.0) 10/06/20 07:54 Seg Neutrophils # 3.1 K/mm3 (1.8-7.7) 10/06/20 07:54 D-Dimer 249.45 ng/mlDDU (0-234) H 10/05/20 14:19 Sodium 139 mmol/L (137-145) 10/08/20 05:47 Potassium 3.1 mmol/L (3.6-5.0) L D 10/08/20 05:47 Chloride 98.6 mmol/L (98-107) 10/08/20 05:47 Carbon Dioxide 29 mmol/L (22-30) 10/08/20 05:47 Anion Gap 15 mmol/L 10/08/20 05:47 BUN 7 mg/dL (7-17) 10/08/20 05:47 Creatinine 0.5 mg/dL (0.6-1.2) L 10/08/20 05:47 Estimated GFR > 60 ml/min 10/08/20 05:47 BUN/Creatinine Ratio 14 % 10/08/20 05:47 Glucose 108 mg/dL (65-100) H 10/08/20 05:47 Hemoglobin A1c 7.3 % (4-6) H 10/05/20 18:57 Lactic Acid 0.80 mmol/L (0.7-2.0) 10/08/20 05:47 Calcium 8.4 mg/dL (8.4-10.2) 10/08/20 05:47 Ferritin 263.4 ng/mL (10.0-200.0) H 10/05/20 14:19 Total Bilirubin 0.20 mg/dL (0.1-1.2) 10/06/20 07:54 AST 16 units/L (5-40) 10/06/20 07:54 ALT 10 units/L (7-56) 10/06/20 07:54 Alkaline Phosphatase 57 units/L (35-129) 10/06/20 07:54 Lactate Dehydrogenase 265 units/L (91-180) H 10/05/20 14:19 C-Reactive Protein 7.30 mg/dL (0.00-1.30) H 10/05/20 14:19 NT-Pro-B Natriuret Pep 27.80 pg/mL (0-900) 10/05/20 14:19 Total Protein 6.7 g/dL (6.3-8.2) 10/06/20 07:54 Albumin 3.3 g/dL (3.9-5) L 10/06/20 07:54 Albumin/Globulin Ratio 1.0 % 10/06/20 07:54 Procalcitonin < 0.05 ng/mL (<0.15) 10/05/20 14:19 Urine Color Yellow (Yellow) 10/05/20 21:15 Urine Turbidity Clear (Clear) 10/05/20 21:15 Urine pH 5.0 (5.0-7.0) 10/05/20 21:15 Ur Specific [place] 1.015 (1.003-1.030) 10/05/20 21:15 Urine Protein <15 mg/dl mg/dL (Negative) 10/05/20 21:15 Urine Glucose (UA) 50 mg/dL (Negative) 10/05/20 21:15 Urine Ketones Neg mg/dL (Negative) 10/05/20 21:15 Urine Blood Neg (Negative) 10/05/20 21:15 Urine Nitrite Neg (Negative) 10/05/20 21:15 Urine Bilirubin Neg (Negative) 10/05/20 21:15 Urine Urobilinogen 4.0 mg/dL (<2.0) 10/05/20 21:15 Ur Leukocyte Esterase Neg (Negative) 10/05/20 21:15 Urine WBC (Auto) 2.0 /HPF (0.0-6.0) 10/05/20 21:15 Urine RBC (Auto) 4.0 /HPF (0.0-6.0) 10/05/20 21:15 U Epithel Cells (Auto) 3.0 /HPF (0-13.0) 10/05/20 21:15 Urine Bacteria (Auto) 1+ /HPF (Negative) 10/05/20 21:15 Urine Mucus Few /HPF 10/05/20 21:15 Coronavirus (PCR) Positive (Negative) A 10/06/20 Unknown Microbiology: Microbiology 10/05/20 14:33 Peripheral/Venous Blood Culture - Preliminary NO GROWTH AFTER 48 HOURS 10/05/20 14:19 Peripheral/Venous Blood Culture - Preliminary NO GROWTH AFTER 48 HOURS Ayala/IV: Voiding Method Toilet IV Catheter Type [Left Forearm INT / Saline Lock ] IV Catheter Type [Right INT / Saline Lock Forearm] IV Catheter Type [Right Upper INT / Saline Lock arm] IV Catheter Type [Left Wrist] INT / Saline Lock Active Medications - Current Medications Current Medications: Generic Name Dose Route Start Last Admin Trade Name Freq PRN Reason Stop Dose Admin Acetaminophen 650 mg 10/05/20 18:39 10/06/20 22:58 Tylenol PO 650 mg Q4H PRN Administration Pain MILD(1-3)/Fever >100.5/MENA Al Hydrox/Mg Hydrox/Simethicone 30 ml 10/05/20 18:31 Alum-Mag Hydrox-Simeth 312-808-04ad/5ml PO Q4H PRN Indigestion Amitriptyline HCl 25 mg 10/05/20 22:00 10/07/20 21:46 Elavil PO 25 mg QHS [facility] Administration Azithromycin 500 mg 10/08/20 10:00 10/08/20 09:13 Zithromax PO 10/09/20 09:59 500 mg QDAY [facility] Administration Dextrose 50 ml 10/07/20 12:55 D50w (25gm) Syringe IV Q30MIN PRN Hypoglycemia Protocol Docusate Sodium 100 mg 10/05/20 22:00 10/08/20 09:13 Colace PO 100 mg BID [facility] Administration Enoxaparin Sodium 40 mg 10/05/20 19:00 10/08/20 09:13 Enoxaparin SUB-Q 40 mg QDAY [facility] Administration Famotidine 20 mg 10/05/20 22:00 10/08/20 09:13 Pepcid PO 20 mg BID [facility] Administration Ceftriaxone Sodium 2 gm in 100 mls @ 200 mls/hr 10/06/20 10:00 10/08/20 09:12 Rocephin/Ns 2 Gm/100 Ml IV 200 mls/hr Q24HR [facility] Administration Protocol REMDESIVIR 100 mg/ Sodium 250 mls @ 500 mls/hr 10/08/20 21:00 Chloride IV 10/11/20 21:29 Q24HR@2100 [facility] Insulin Human Lispro 0 unit 10/07/20 16:30 10/08/20 07:30 [facility] Protocol Isosorbide Dinitrate 10 mg 10/05/20 19:00 10/08/20 09:12 Isordil PO 10 mg DAILY [facility] Administration Metoclopramide HCl 10 mg 10/05/20 18:45 Reglan IV Q6H PRN Nausea And Vomiting Morphine Sulfate 2 mg 10/06/20 11:12 10/07/20 22:28 Morphine IV 2 mg Q4H PRN Administration Pain, Moderate (4-6) Ondansetron HCl 4 mg 10/05/20 18:39 10/06/20 16:44 Zofran IV 4 mg Q3H PRN Administration Nausea And Vomiting Prednisone 10 mg 10/05/20 19:00 10/08/20 09:13 Deltasone PO 10 mg QDAY [facility] Administration Pseudoephedrine/Acetam/Chlorphenir 10 ml 10/05/20 18:52 10/06/20 22:57 Robitussin Ac PO 10 ml QID PRN Administration Cough Senna 8.6 mg 10/05/20 22:00 10/08/20 09:12 Senokot PO 8.6 mg Q12HR [facility] Administration Sodium Chloride 10 ml 10/05/20 22:00 10/08/20 09:11 Sodium Chloride Flush Syringe 10 Ml IV 10 ml BID [facility] Administration Sodium Chloride 10 ml 10/05/20 18:39 Sodium Chloride Flush Syringe 10 Ml IV PRN PRN LINE FLUSH Sodium Chloride 50 ml 10/07/20 19:30 10/07/20 18:33 Nacl 0.9% IV 10/11/20 21:31 50 ml 2130 [facility]KO Administration
[2020-10-08] MEDS: AMITRIPTYLINE 25 MG TAB PO SCH (21:13)
[2020-10-08] MEDS: guaiFENesin/CODEINE 100-10MG ORAL LIQD 5 ML PO PRN (21:24)
[2020-10-08] MEDS: REMDESIVIR 100 MG in SODIUM CHLORIDE 0.9% 250ML 250 ML IV SCH (21:56)
[2020-10-08] MEDS: SODIUM CHLORIDE 0.9% 50 ML IVPB IV SCH (22:55)
[2020-10-08] MEDS: MORPHINE 2 MG/1 ML INJ IV PRN (23:50)
[2020-10-09] MEDS: INSULIN LISPRO 100 UNIT/ML VIAL 3 mL SUB-Q SCH ×5 (00:08→22:20)
[2020-10-09] MEDS: guaiFENesin/CODEINE 100-10MG ORAL LIQD 5 ML PO PRN ×3 (09:08→21:50)
[2020-10-09] MEDS: FAMOTIDINE 20 MG TAB PO SCH ×2 (09:09→21:56)
[2020-10-09] MEDS: ENOXAPARIN 40 MG/0.4 ML INJ SUB-Q SCH (09:09)
[2020-10-09] MEDS: MORPHINE 2 MG/1 ML INJ IV PRN ×3 (09:09→21:45)
[2020-10-09] MEDS: DOCUSATE SODIUM 100 MG CAP PO SCH ×2 (09:10→21:56)
[2020-10-09] MEDS: SENNOSIDES 8.6 MG TAB PO SCH ×2 (09:10→21:56)
[2020-10-09 10:02] LABS: Alanine Aminotransferase 9 units/L (7-56); Albumin 2.6 g/dL (3.9-5); Blood Urea Nitrogen 10 mg/dL (7-17); Calcium 8.5 mg/dL (8.4-10.2); Hemolysis Index 40
[2020-10-09 10:03] LABS: BUN/Creatinine Ratio 20
--- NOTE | 2020-10-09 10:36 | Progress Note ---
Assessment and Plan Assessment and plan: Sepsis Patient presented with a low-grade fever of 99.5, tachycardia, lactic acidosis, hypoxic on ambulation and a COVID-19 PCR was positive. Infectious disease following -BC x2 no growth to date Pneumonia due to COVID-19 virus 10/06 COVID-19 PCR positive Trend inflammatory markers Droplet/Contact precautions Pulmonary hygiene Dexamethasone 6 mg daily for 10 days Supplementary oxygenation as needed Patient initiated on remdesivir therapy per ID on 10/07 Prone to sleep as needed Acute respiratory failure with hypoxia Supplemental oxygen as needed Pulmonary hygiene Hyponatremia Trend BMP Crohn's disease Patient was recently discharged in August for acute Crohn's flareup Patient was instructed to follow-up with GI outpatient for colonoscopy and possible initiation of immunologic's Continue home prednisone and Pepcid Supportive care HTN (hypertension) Continue home antihypertensive regimen Blood pressure monitoring per protocol Hydralazine as needed for SBP greater than 160 Diabetes mellitus 10/05 hemoglobin A1c 7.3 Accu-Cheks AC at bedtime SSI Lactic acidosis Presented with a lactic acid of 2.1 10/05 lactic acid 2.8 10/08 lactic acid 0.8 Secondary to COVID-19 infection Hypokalemia Trend potassium Replete as necessary DVT prophylaxis SCDs to BLE while in bed Lovenox subcu History Interval history: Patient continues to complain of cough. Shortness of breath with minimal exertion. Hospitalist Physical - Constitutional Vitals: Temp Pulse Resp BP Pulse Ox 98.6 F 87 20 141/94 94 10/09/20 04:32 10/09/20 04:32 10/09/20 04:32 10/09/20 04:32 10/09/20 04:32 General appearance: Present: no acute distress, well-nourished - EENT Eyes: Present: PERRL, EOM intact ENT: hearing intact, clear oral mucosa, dentition normal - Neck Neck: Present: supple, normal ROM - Respiratory Respiratory effort: normal Respiratory: bilateral: CTA - Cardiovascular Rhythm: regular Heart Sounds: Present: S1 & S2. Absent: gallop, rub - Extremities Extremities: no ischemia, No edema, Full ROM - Abdominal General gastrointestinal: soft, non-tender, non-distended, normal bowel sounds - Integumentary Integumentary: Present: clear, warm, dry - Neurologic Neurologic: CNII-XII intact, moves all extremities Results - Labs CBC & Chem 7: 10/06/20 07:54 10/09/20 09:03 Labs: Laboratory Last Values WBC 4.6 K/mm3 (4.5-11.0) 10/06/20 07:54 RBC 3.98 M/mm3 (3.65-5.03) 10/06/20 07:54 Hgb 10.5 gm/dl (10.1-14.3) 10/06/20 07:54 Hct 32.6 % (30.3-42.9) D 10/06/20 07:54 MCV 82 fl (79-97) 10/06/20 07:54 MCH 26 pg (28-32) L 10/06/20 07:54 MCHC 32 % (30-34) 10/06/20 07:54 RDW 22.3 % (13.2-15.2) H 10/06/20 07:54 Plt Count 504 K/mm3 (140-440) H 10/06/20 07:54 Lymph % (Auto) 20.1 % (13.4-35.0) 10/06/20 07:54 [place] % (Auto) 11.2 % (0.0-7.3) H 10/06/20 07:54 Eos % (Auto) 0.1 % (0.0-4.3) 10/06/20 07:54 Baso % (Auto) 0.0 % (0.0-1.8) 10/06/20 07:54 Lymph # (Auto) 0.9 K/mm3 (1.2-5.4) L 10/06/20 07:54 [place] # (Auto) 0.5 K/mm3 (0.0-0.8) 10/06/20 07:54 Eos # (Auto) 0.0 K/mm3 (0.0-0.4) 10/06/20 07:54 Baso # (Auto) 0.0 K/mm3 (0.0-0.1) 10/06/20 07:54 Seg Neutrophils % 68.6 % (40.0-70.0) 10/06/20 07:54 Seg Neutrophils # 3.1 K/mm3 (1.8-7.7) 10/06/20 07:54 D-Dimer 249.45 ng/mlDDU (0-234) H 10/05/20 14:19 Sodium 137 mmol/L (137-145) 10/09/20 09:03 Potassium 3.4 mmol/L (3.6-5.0) L 10/09/20 09:03 Chloride 98.7 mmol/L (98-107) 10/09/20 09:03 Carbon Dioxide 27 mmol/L (22-30) 10/09/20 09:03 Anion Gap 15 mmol/L 10/09/20 09:03 BUN 10 mg/dL (7-17) 10/09/20 09:03 Creatinine 0.5 mg/dL (0.6-1.2) L 10/09/20 09:03 Estimated GFR > 60 ml/min 10/09/20 09:03 BUN/Creatinine Ratio 20 % 10/09/20 09:03 Glucose 130 mg/dL (65-100) H 10/09/20 09:03 POC Glucose 93 mg/dL (70-105) 10/09/20 08:08 Hemoglobin A1c 7.3 % (4-6) H 10/05/20 18:57 Lactic Acid 0.80 mmol/L (0.7-2.0) 10/08/20 05:47 Calcium 8.5 mg/dL (8.4-10.2) 10/09/20 09:03 Ferritin 263.4 ng/mL (10.0-200.0) H 10/05/20 14:19 Total Bilirubin 0.20 mg/dL (0.1-1.2) 10/09/20 09:03 AST 17 units/L (5-40) 10/09/20 09:03 ALT 9 units/L (7-56) 10/09/20 09:03 Alkaline Phosphatase 54 units/L (35-129) 10/09/20 09:03 Lactate Dehydrogenase 265 units/L (91-180) H 10/05/20 14:19 C-Reactive Protein 7.30 mg/dL (0.00-1.30) H 10/05/20 14:19 NT-Pro-B Natriuret Pep 27.80 pg/mL (0-900) 10/05/20 14:19 Total Protein 6.7 g/dL (6.3-8.2) 10/09/20 09:03 Albumin 2.6 g/dL (3.9-5) L 10/09/20 09:03 Albumin/Globulin Ratio 0.6 % 10/09/20 09:03 Procalcitonin < 0.05 ng/mL (<0.15) 10/05/20 14:19 Urine Color Yellow (Yellow) 10/05/20 21:15 Urine Turbidity Clear (Clear) 10/05/20 21:15 Urine pH 5.0 (5.0-7.0) 10/05/20 21:15 Ur Specific [place] 1.015 (1.003-1.030) 10/05/20 21:15 Urine Protein <15 mg/dl mg/dL (Negative) 10/05/20 21:15 Urine Glucose (UA) 50 mg/dL (Negative) 10/05/20 21:15 Urine Ketones Neg mg/dL (Negative) 10/05/20 21:15 Urine Blood Neg (Negative) 10/05/20 21:15 Urine Nitrite Neg (Negative) 10/05/20 21:15 Urine Bilirubin Neg (Negative) 10/05/20 21:15 Urine Urobilinogen 4.0 mg/dL (<2.0) 10/05/20 21:15 Ur Leukocyte Esterase Neg (Negative) 10/05/20 21:15 Urine WBC (Auto) 2.0 /HPF (0.0-6.0) 10/05/20 21:15 Urine RBC (Auto) 4.0 /HPF (0.0-6.0) 10/05/20 21:15 U Epithel Cells (Auto) 3.0 /HPF (0-13.0) 10/05/20 21:15 Urine Bacteria (Auto) 1+ /HPF (Negative) 10/05/20 21:15 Urine Mucus Few /HPF 10/05/20 21:15 Coronavirus (PCR) Positive (Negative) A 10/06/20 Unknown Microbiology: Microbiology 10/05/20 14:33 Peripheral/Venous Blood Culture - Preliminary NO GROWTH AFTER 72 HOURS 10/05/20 14:19 Peripheral/Venous Blood Culture - Preliminary NO GROWTH AFTER 72 HOURS Ayala/IV: Voiding Method Toilet IV Catheter Type [Left Forearm INT / Saline Lock ] IV Catheter Type [Right INT / Saline Lock Forearm] IV Catheter Type [Right Upper INT / Saline Lock arm] IV Catheter Type [Left Wrist] INT / Saline Lock Active Medications - Current Medications Current Medications: Generic Name Dose Route Start Last Admin Trade Name Freq PRN Reason Stop Dose Admin Acetaminophen 650 mg 10/05/20 18:39 10/06/20 22:58 Tylenol PO 650 mg Q4H PRN Administration Pain MILD(1-3)/Fever >100.5/MENA Al Hydrox/Mg Hydrox/Simethicone 30 ml 10/05/20 18:31 Alum-Mag Hydrox-Simeth 468-487-49gw/5ml PO Q4H PRN Indigestion Amitriptyline HCl 25 mg 10/05/20 22:00 10/08/20 21:13 Elavil PO 25 mg QHS [facility] Administration Dexamethasone 6 mg 10/09/20 10:00 Decadron IV Q24H [facility] Dextrose 50 ml 10/07/20 12:55 D50w (25gm) Syringe IV Q30MIN PRN Hypoglycemia Protocol Docusate Sodium 100 mg 10/05/20 22:00 10/09/20 09:10 Colace PO Not Given BID [facility] Enoxaparin Sodium 40 mg 10/05/20 19:00 10/09/20 09:09 Enoxaparin SUB-Q 40 mg QDAY [facility] Administration Famotidine 20 mg 10/05/20 22:00 10/09/20 09:09 Pepcid PO 20 mg BID [facility] Administration REMDESIVIR 100 mg/ Sodium 250 mls @ 500 mls/hr 10/08/20 21:00 10/08/20 21:56 Chloride IV 10/11/20 21:29 500 mls/hr Q24HR@2100 [facility] Administration Insulin Human Lispro 0 unit 10/07/20 16:30 10/09/20 08:49 Humalog SUB-Q Not Given ACHS [facility] Protocol Isosorbide Dinitrate 10 mg 10/05/20 19:00 10/08/20 09:12 Isordil PO 10 mg DAILY [facility] Administration Metoclopramide HCl 10 mg 10/05/20 18:45 Reglan IV Q6H PRN Nausea And Vomiting Morphine Sulfate 2 mg 10/06/20 11:12 10/09/20 09:09 Morphine IV 2 mg Q4H PRN Administration Pain, Moderate (4-6) Ondansetron HCl 4 mg 10/05/20 18:39 10/06/20 16:44 Zofran IV 4 mg Q3H PRN Administration Nausea And Vomiting Pseudoephedrine/Acetam/Chlorphenir 10 ml 10/05/20 18:52 10/09/20 09:08 Robitussin Ac PO 10 ml QID PRN Administration Cough Senna 8.6 mg 10/05/20 22:00 10/09/20 09:10 Senokot PO Not Given Q12HR [facility] Sodium Chloride 10 ml 10/05/20 22:00 10/09/20 09:11 Sodium Chloride Flush Syringe 10 Ml IV 10 ml BID [facility] Administration Sodium Chloride 10 ml 10/05/20 18:39 Sodium Chloride Flush Syringe 10 Ml IV PRN PRN LINE FLUSH Sodium Chloride 50 ml 10/07/20 19:30 10/08/20 22:55 Nacl 0.9% IV 10/11/20 21:31 50 ml 2130 [facility] Administration
[2020-10-09] MEDS: dexAMETHasone 4 MG/ML VIAL IV SCH (12:36)
[2020-10-09] MEDS: ISOSORBIDE DINITRATE 10 MG TAB PO SCH (12:37)
[2020-10-09] MEDS: AMITRIPTYLINE 25 MG TAB PO SCH (21:56)
[2020-10-09] MEDS: REMDESIVIR 100 MG in SODIUM CHLORIDE 0.9% 250ML 250 ML IV SCH (22:36)
[2020-10-09] MEDS: SODIUM CHLORIDE 0.9% 50 ML IVPB IV SCH (23:15)
--- NOTE | 2020-10-10 08:25 | Progress Note ---
Hospitalist Physical - Constitutional Vitals: Temp Pulse Resp BP Pulse Ox 98.6 F 71 18 157/93 92 10/10/20 06:04 10/10/20 06:04 10/10/20 06:04 10/10/20 06:04 10/10/20 06:04 General appearance: Present: no acute distress, well-nourished Results - Labs CBC & Chem 7: 10/06/20 07:54 10/09/20 09:03 Labs: Laboratory Last Values WBC 4.6 K/mm3 (4.5-11.0) 10/06/20 07:54 RBC 3.98 M/mm3 (3.65-5.03) 10/06/20 07:54 Hgb 10.5 gm/dl (10.1-14.3) 10/06/20 07:54 Hct 32.6 % (30.3-42.9) D 10/06/20 07:54 MCV 82 fl (79-97) 10/06/20 07:54 MCH 26 pg (28-32) L 10/06/20 07:54 MCHC 32 % (30-34) 10/06/20 07:54 RDW 22.3 % (13.2-15.2) H 10/06/20 07:54 Plt Count 504 K/mm3 (140-440) H 10/06/20 07:54 Lymph % (Auto) 20.1 % (13.4-35.0) 10/06/20 07:54 [place] % (Auto) 11.2 % (0.0-7.3) H 10/06/20 07:54 Eos % (Auto) 0.1 % (0.0-4.3) 10/06/20 07:54 Baso % (Auto) 0.0 % (0.0-1.8) 10/06/20 07:54 Lymph # (Auto) 0.9 K/mm3 (1.2-5.4) L 10/06/20 07:54 [place] # (Auto) 0.5 K/mm3 (0.0-0.8) 10/06/20 07:54 Eos # (Auto) 0.0 K/mm3 (0.0-0.4) 10/06/20 07:54 Baso # (Auto) 0.0 K/mm3 (0.0-0.1) 10/06/20 07:54 Seg Neutrophils % 68.6 % (40.0-70.0) 10/06/20 07:54 Seg Neutrophils # 3.1 K/mm3 (1.8-7.7) 10/06/20 07:54 D-Dimer 249.45 ng/mlDDU (0-234) H 10/05/20 14:19 Sodium 137 mmol/L (137-145) 10/09/20 09:03 Potassium 3.4 mmol/L (3.6-5.0) L 10/09/20 09:03 Chloride 98.7 mmol/L (98-107) 10/09/20 09:03 Carbon Dioxide 27 mmol/L (22-30) 10/09/20 09:03 Anion Gap 15 mmol/L 10/09/20 09:03 BUN 10 mg/dL (7-17) 10/09/20 09:03 Creatinine 0.5 mg/dL (0.6-1.2) L 10/09/20 09:03 Estimated GFR > 60 ml/min 10/09/20 09:03 BUN/Creatinine Ratio 20 % 10/09/20 09:03 Glucose 130 mg/dL (65-100) H 10/09/20 09:03 POC Glucose 148 mg/dL (70-105) H 10/09/20 22:22 Hemoglobin A1c 7.3 % (4-6) H 10/05/20 18:57 Lactic Acid 0.80 mmol/L (0.7-2.0) 10/08/20 05:47 Calcium 8.5 mg/dL (8.4-10.2) 10/09/20 09:03 Ferritin 263.4 ng/mL (10.0-200.0) H 10/05/20 14:19 Total Bilirubin 0.20 mg/dL (0.1-1.2) 10/09/20 09:03 AST 17 units/L (5-40) 10/09/20 09:03 ALT 9 units/L (7-56) 10/09/20 09:03 Alkaline Phosphatase 54 units/L (35-129) 10/09/20 09:03 Lactate Dehydrogenase 265 units/L (91-180) H 10/05/20 14:19 C-Reactive Protein 7.30 mg/dL (0.00-1.30) H 10/05/20 14:19 NT-Pro-B Natriuret Pep 27.80 pg/mL (0-900) 10/05/20 14:19 Total Protein 6.7 g/dL (6.3-8.2) 10/09/20 09:03 Albumin 2.6 g/dL (3.9-5) L 10/09/20 09:03 Albumin/Globulin Ratio 0.6 % 10/09/20 09:03 Procalcitonin < 0.05 ng/mL (<0.15) 10/05/20 14:19 Urine Color Yellow (Yellow) 10/05/20 21:15 Urine Turbidity Clear (Clear) 10/05/20 21:15 Urine pH 5.0 (5.0-7.0) 10/05/20 21:15 Ur Specific [place] 1.015 (1.003-1.030) 10/05/20 21:15 Urine Protein <15 mg/dl mg/dL (Negative) 10/05/20 21:15 Urine Glucose (UA) 50 mg/dL (Negative) 10/05/20 21:15 Urine Ketones Neg mg/dL (Negative) 10/05/20 21:15 Urine Blood Neg (Negative) 10/05/20 21:15 Urine Nitrite Neg (Negative) 10/05/20 21:15 Urine Bilirubin Neg (Negative) 10/05/20 21:15 Urine Urobilinogen 4.0 mg/dL (<2.0) 10/05/20 21:15 Ur Leukocyte Esterase Neg (Negative) 10/05/20 21:15 Urine WBC (Auto) 2.0 /HPF (0.0-6.0) 10/05/20 21:15 Urine RBC (Auto) 4.0 /HPF (0.0-6.0) 10/05/20 21:15 U Epithel Cells (Auto) 3.0 /HPF (0-13.0) 10/05/20 21:15 Urine Bacteria (Auto) 1+ /HPF (Negative) 10/05/20 21:15 Urine Mucus Few /HPF 10/05/20 21:15 Coronavirus (PCR) Positive (Negative) A 10/06/20 Unknown Microbiology: Microbiology 10/05/20 14:33 Peripheral/Venous Blood Culture - Preliminary NO GROWTH AFTER 4 DAYS 10/05/20 14:19 Peripheral/Venous Blood Culture - Preliminary NO GROWTH AFTER 4 DAYS Ayala/IV: Voiding Method Toilet IV Catheter Type [Left Forearm INT / Saline Lock ] IV Catheter Type [Right INT / Saline Lock Forearm] IV Catheter Type [Right Upper INT / Saline Lock arm] IV Catheter Type [Left Wrist] INT / Saline Lock Active Medications - Current Medications Current Medications: Generic Name Dose Route Start Last Admin Trade Name Freq PRN Reason Stop Dose Admin Acetaminophen 650 mg 10/05/20 18:39 10/06/20 22:58 Tylenol PO 650 mg Q4H PRN Administration Pain MILD(1-3)/Fever >100.5/MENA Al Hydrox/Mg Hydrox/Simethicone 30 ml 10/05/20 18:31 Alum-Mag Hydrox-Simeth 400-943-42nt/5ml PO Q4H PRN Indigestion Amitriptyline HCl 25 mg 10/05/20 22:00 10/09/20 21:56 Elavil PO 25 mg QHS GUANAKO Administration Dexamethasone 6 mg 10/09/20 10:00 10/09/20 12:36 Decadron IV 6 mg Q24H GUANAKO Administration Dextrose 50 ml 10/07/20 12:55 D50w (25gm) Syringe IV Q30MIN PRN Hypoglycemia Protocol Docusate Sodium 100 mg 10/05/20 22:00 10/09/20 21:56 Colace PO 100 mg BID GUANAKO Administration Enoxaparin Sodium 40 mg 10/05/20 19:00 10/09/20 09:09 Enoxaparin SUB-Q 40 mg QDAY GUANAKO Administration Famotidine 20 mg 10/05/20 22:00 10/09/20 21:56 Pepcid PO 20 mg BID GUANAKO Administration REMDESIVIR 100 mg/ Sodium 250 mls @ 500 mls/hr 10/08/20 21:00 10/09/20 22:36 Chloride IV 10/11/20 21:29 500 mls/hr Q24HR@2100 GUANAKO Administration Insulin Human Lispro 0 unit 10/07/20 16:30 10/09/20 22:20 Humalog SUB-Q Not Given ACHS GUANAKO Protocol Isosorbide Dinitrate 10 mg 10/05/20 19:00 10/09/20 12:37 Isordil PO 10 mg DAILY GUANAOK Administration Metoclopramide HCl 10 mg 10/05/20 18:45 Reglan IV Q6H PRN Nausea And Vomiting Morphine Sulfate 2 mg 10/06/20 11:12 10/09/20 21:45 Morphine IV 2 mg Q4H PRN Administration Pain, Moderate (4-6) Ondansetron HCl 4 mg 10/05/20 18:39 10/06/20 16:44 Zofran IV 4 mg Q3H PRN Administration Nausea And Vomiting Pseudoephedrine/Acetam/Chlorphenir 10 ml 10/05/20 18:52 10/09/20 21:50 Robitussin Ac PO 10 ml QID PRN Administration Cough Senna 8.6 mg 10/05/20 22:00 10/09/20 21:56 Senokot PO 8.6 mg Q12HR GUANAKO Administration Sodium Chloride 10 ml 10/05/20 22:00 10/09/20 21:57 Sodium Chloride Flush Syringe 10 Ml IV 10 ml BID GUANAKO Administration Sodium Chloride 10 ml 10/05/20 18:39 Sodium Chloride Flush Syringe 10 Ml IV PRN PRN LINE FLUSH Sodium Chloride 50 ml 10/07/20 19:30 10/09/20 23:15 Nacl 0.9% IV 10/11/20 21:31 50 ml 2130 GUANAKO Administration
--- NOTE | 2020-10-10 08:52 | Progress Note ---
Assessment and Plan Assessment and plan: Sepsis Patient presented with a low-grade fever of 99.5, tachycardia, lactic acidosis, hypoxic on ambulation and a COVID-19 PCR was positive. Infectious disease following -BC x2 no growth to date Pneumonia due to COVID-19 virus 10/06 COVID-19 PCR positive Trend inflammatory markers Droplet/Contact precautions Pulmonary hygiene Dexamethasone 6 mg daily for 10 days Supplementary oxygenation as needed Patient initiated on remdesivir therapy per ID on 10/07 Prone to sleep as needed Acute respiratory failure with hypoxia Supplemental oxygen as needed Pulmonary hygiene Hyponatremia Trend BMP Crohn's disease Patient was recently discharged in August for acute Crohn's flareup Patient was instructed to follow-up with GI outpatient for colonoscopy and possible initiation of immunologic's Continue home prednisone and Pepcid Supportive care HTN (hypertension) Continue home antihypertensive regimen Blood pressure monitoring per protocol Hydralazine as needed for SBP greater than 160 Diabetes mellitus 10/05 hemoglobin A1c 7.3 Accu-Cheks AC at bedtime SSI Lactic acidosis Presented with a lactic acid of 2.1 10/05 lactic acid 2.8 10/08 lactic acid 0.8 Secondary to COVID-19 infection Hypokalemia Trend potassium Replete as necessary DVT prophylaxis SCDs to BLE while in bed Lovenox subcu 10/10/2020. Patient will exercise pulse oximetry testing last evening with saturations at 89%. We will recheck today and if stable on room air will likely discharge. Continue current medications of dexamethasone and remdesivir. Check inflammatory markers today. History Interval history: Patient continues to complain of cough. Shortness of breath with minimal exe rtion. Hospitalist Physical - Constitutional Vitals: Temp Pulse Resp BP Pulse Ox 98.6 F 71 18 157/93 92 10/10/20 06:04 10/10/20 06:04 10/10/20 06:04 10/10/20 06:04 10/10/20 06:04 General appearance: Present: no acute distress, well-nourished - EENT Eyes: Present: PERRL, EOM intact ENT: hearing intact, clear oral mucosa, dentition normal - Neck Neck: Present: supple, normal ROM - Respiratory Respiratory effort: normal Respiratory: bilateral: CTA - Cardiovascular Rhythm: regular Heart Sounds: Present: S1 & S2. Absent: gallop, rub - Extremities Extremities: no ischemia, No edema, Full ROM - Abdominal General gastrointestinal: soft, non-tender, non-distended, normal bowel sounds - Integumentary Integumentary: Present: clear, warm, dry - Neurologic Neurologic: CNII-XII intact, moves all extremities Results - Labs CBC & Chem 7: 10/06/20 07:54 10/09/20 09:03 Labs: Laboratory Last Values WBC 4.6 K/mm3 (4.5-11.0) 10/06/20 07:54 RBC 3.98 M/mm3 (3.65-5.03) 10/06/20 07:54 Hgb 10.5 gm/dl (10.1-14.3) 10/06/20 07:54 Hct 32.6 % (30.3-42.9) D 10/06/20 07:54 MCV 82 fl (79-97) 10/06/20 07:54 MCH 26 pg (28-32) L 10/06/20 07:54 MCHC 32 % (30-34) 10/06/20 07:54 RDW 22.3 % (13.2-15.2) H 10/06/20 07:54 Plt Count 504 K/mm3 (140-440) H 10/06/20 07:54 Lymph % (Auto) 20.1 % (13.4-35.0) 10/06/20 07:54 [place] % (Auto) 11.2 % (0.0-7.3) H 10/06/20 07:54 Eos % (Auto) 0.1 % (0.0-4.3) 10/06/20 07:54 Baso % (Auto) 0.0 % (0.0-1.8) 10/06/20 07:54 Lymph # (Auto) 0.9 K/mm3 (1.2-5.4) L 10/06/20 07:54 [place] # (Auto) 0.5 K/mm3 (0.0-0.8) 10/06/20 07:54 Eos # (Auto) 0.0 K/mm3 (0.0-0.4) 10/06/20 07:54 Baso # (Auto) 0.0 K/mm3 (0.0-0.1) 10/06/20 07:54 Seg Neutrophils % 68.6 % (40.0-70.0) 10/06/20 07:54 Seg Neutrophils # 3.1 K/mm3 (1.8-7.7) 10/06/20 07:54 D-Dimer 249.45 ng/mlDDU (0-234) H 10/05/20 14:19 Sodium 137 mmol/L (137-145) 10/09/20 09:03 Potassium 3.4 mmol/L (3.6-5.0) L 10/09/20 09:03 Chloride 98.7 mmol/L (98-107) 10/09/20 09:03 Carbon Dioxide 27 mmol/L (22-30) 10/09/20 09:03 Anion Gap 15 mmol/L 10/09/20 09:03 BUN 10 mg/dL (7-17) 10/09/20 09:03 Creatinine 0.5 mg/dL (0.6-1.2) L 10/09/20 09:03 Estimated GFR > 60 ml/min 10/09/20 09:03 BUN/Creatinine Ratio 20 % 10/09/20 09:03 Glucose 130 mg/dL (65-100) H 10/09/20 09:03 POC Glucose 148 mg/dL (70-105) H 10/09/20 22:22 Hemoglobin A1c 7.3 % (4-6) H 10/05/20 18:57 Lactic Acid 0.80 mmol/L (0.7-2.0) 10/08/20 05:47 Calcium 8.5 mg/dL (8.4-10.2) 10/09/20 09:03 Ferritin 263.4 ng/mL (10.0-200.0) H 10/05/20 14:19 Total Bilirubin 0.20 mg/dL (0.1-1.2) 10/09/20 09:03 AST 17 units/L (5-40) 10/09/20 09:03 ALT 9 units/L (7-56) 10/09/20 09:03 Alkaline Phosphatase 54 units/L (35-129) 10/09/20 09:03 Lactate Dehydrogenase 265 units/L (91-180) H 10/05/20 14:19 C-Reactive Protein 7.30 mg/dL (0.00-1.30) H 10/05/20 14:19 NT-Pro-B Natriuret Pep 27.80 pg/mL (0-900) 10/05/20 14:19 Total Protein 6.7 g/dL (6.3-8.2) 10/09/20 09:03 Albumin 2.6 g/dL (3.9-5) L 10/09/20 09:03 Albumin/Globulin Ratio 0.6 % 10/09/20 09:03 Procalcitonin < 0.05 ng/mL (<0.15) 10/05/20 14:19 Urine Color Yellow (Yellow) 10/05/20 21:15 Urine Turbidity Clear (Clear) 10/05/20 21:15 Urine pH 5.0 (5.0-7.0) 10/05/20 21:15 Ur Specific [place] 1.015 (1.003-1.030) 10/05/20 21:15 Urine Protein <15 mg/dl mg/dL (Negative) 10/05/20 21:15 Urine Glucose (UA) 50 mg/dL (Negative) 10/05/20 21:15 Urine Ketones Neg mg/dL (Negative) 10/05/20 21:15 Urine Blood Neg (Negative) 10/05/20 21:15 Urine Nitrite Neg (Negative) 10/05/20 21:15 Urine Bilirubin Neg (Negative) 10/05/20 21:15 Urine Urobilinogen 4.0 mg/dL (<2.0) 10/05/20 21:15 Ur Leukocyte Esterase Neg (Negative) 10/05/20 21:15 Urine WBC (Auto) 2.0 /HPF (0.0-6.0) 10/05/20 21:15 Urine RBC (Auto) 4.0 /HPF (0.0-6.0) 10/05/20 21:15 U Epithel Cells (Auto) 3.0 /HPF (0-13.0) 10/05/20 21:15 Urine Bacteria (Auto) 1+ /HPF (Negative) 10/05/20 21:15 Urine Mucus Few /HPF 10/05/20 21:15 Coronavirus (PCR) Positive (Negative) A 10/06/20 Unknown Microbiology: Microbiology 10/05/20 14:33 Peripheral/Venous Blood Culture - Preliminary NO GROWTH AFTER 4 DAYS 10/05/20 14:19 Peripheral/Venous Blood Culture - Preliminary NO GROWTH AFTER 4 DAYS Ayala/IV: Voiding Method Toilet IV Catheter Type [Left Forearm INT / Saline Lock ] IV Catheter Type [Right INT / Saline Lock Forearm] IV Catheter Type [Right Upper INT / Saline Lock arm] IV Catheter Type [Left Wrist] INT / Saline Lock Active Medications - Current Medications Current Medications: Generic Name Dose Route Start Last Admin Trade Name Freq PRN Reason Stop Dose Admin Acetaminophen 650 mg 10/05/20 18:39 10/06/20 22:58 Tylenol PO 650 mg Q4H PRN Administration Pain MILD(1-3)/Fever >100.5/MENA Al Hydrox/Mg Hydrox/Simethicone 30 ml 10/05/20 18:31 Alum-Mag Hydrox-Simeth 183-858-36fw/5ml PO Q4H PRN Indigestion Amitriptyline HCl 25 mg 10/05/20 22:00 10/09/20 21:56 Elavil PO 25 mg QHS GUANAKO Administration Dexamethasone 6 mg 10/09/20 10:00 10/09/20 12:36 Decadron IV 6 mg Q24H GUANAKO Administration Dextrose 50 ml 10/07/20 12:55 D50w (25gm) Syringe IV Q30MIN PRN Hypoglycemia Protocol Docusate Sodium 100 mg 10/05/20 22:00 10/09/20 21:56 Colace PO 100 mg BID GUANAKO Administration Enoxaparin Sodium 40 mg 10/05/20 19:00 10/09/20 09:09 Enoxaparin SUB-Q 40 mg QDAY GUANAKO Administration Famotidine 20 mg 10/05/20 22:00 10/09/20 21:56 Pepcid PO 20 mg BID GUANAKO Administration REMDESIVIR 100 mg/ Sodium 250 mls @ 500 mls/hr 10/08/20 21:00 10/09/20 22:36 Chloride IV 10/11/20 21:29 500 mls/hr Q24HR@2100 GUANAKO Administration Insulin Human Lispro 0 unit 10/07/20 16:30 10/09/20 22:20 Humalog SUB-Q Not Given ACHS GUANAKO Protocol Isosorbide Dinitrate 10 mg 10/05/20 19:00 10/09/20 12:37 Isordil PO 10 mg DAILY GUANAKO Administration Metoclopramide HCl 10 mg 10/05/20 18:45 Reglan IV Q6H PRN Nausea And Vomiting Morphine Sulfate 2 mg 10/06/20 11:12 10/09/20 21:45 Morphine IV 2 mg Q4H PRN Administration Pain, Moderate (4-6) Ondansetron HCl 4 mg 10/05/20 18:39 10/06/20 16:44 Zofran IV 4 mg Q3H PRN Administration Nausea And Vomiting Pseudoephedrine/Acetam/Chlorphenir 10 ml 10/05/20 18:52 10/09/20 21:50 Robitussin Ac PO 10 ml QID PRN Administration Cough Senna 8.6 mg 10/05/20 22:00 10/09/20 21:56 Senokot PO 8.6 mg Q12HR GUANAKO Administration Sodium Chloride 10 ml 10/05/20 22:00 10/09/20 21:57 Sodium Chloride Flush Syringe 10 Ml IV 10 ml BID GUANAKO Administration Sodium Chloride 10 ml 10/05/20 18:39 Sodium Chloride Flush Syringe 10 Ml IV PRN PRN LINE FLUSH Sodium Chloride 50 ml 10/07/20 19:30 10/09/20 23:15 Nacl 0.9% IV 10/11/20 21:31 50 ml 2130 GUANAKO Administration
[2020-10-10] MEDS: FAMOTIDINE 20 MG TAB PO SCH ×2 (10:47→23:08)
[2020-10-10] MEDS: ENOXAPARIN 40 MG/0.4 ML INJ SUB-Q SCH (10:47)
[2020-10-10] MEDS: SENNOSIDES 8.6 MG TAB PO SCH ×2 (10:48→23:00)
[2020-10-10] MEDS: DOCUSATE SODIUM 100 MG CAP PO SCH ×2 (10:48→23:00)
[2020-10-10] MEDS: guaiFENesin/CODEINE 100-10MG ORAL LIQD 5 ML PO PRN ×3 (10:49→22:33)
[2020-10-10] MEDS: INSULIN LISPRO 100 UNIT/ML VIAL 3 mL SUB-Q SCH ×3 (10:50→17:56)
[2020-10-10] MEDS: MORPHINE 2 MG/1 ML INJ IV PRN ×3 (10:51→22:29)
[2020-10-10] MEDS: ISOSORBIDE DINITRATE 10 MG TAB PO SCH (10:51)
[2020-10-10 11:33] LABS: C-Reactive Protein 5.7 mg/dL (0.00-1.30)
[2020-10-10] MEDS: dexAMETHasone 4 MG/ML VIAL IV SCH (13:40)
[2020-10-10] MEDS: REMDESIVIR 100 MG in SODIUM CHLORIDE 0.9% 250ML 250 ML IV SCH (22:28)
[2020-10-10] MEDS: SODIUM CHLORIDE 0.9% 50 ML IVPB IV SCH (23:08)
[2020-10-10] MEDS: AMITRIPTYLINE 25 MG TAB PO SCH (23:08)
[2020-10-11] MEDS: INSULIN LISPRO 100 UNIT/ML VIAL 3 mL SUB-Q SCH ×4 (01:20→17:40)
[2020-10-11] MEDS: ENOXAPARIN 40 MG/0.4 ML INJ SUB-Q SCH (09:52)
[2020-10-11] MEDS: FAMOTIDINE 20 MG TAB PO SCH (09:52)
[2020-10-11] MEDS: dexAMETHasone 4 MG/ML VIAL IV SCH (09:52)
[2020-10-11] MEDS: DOCUSATE SODIUM 100 MG CAP PO SCH ×2 (09:52→10:03)
[2020-10-11] MEDS: SENNOSIDES 8.6 MG TAB PO SCH ×2 (09:53→10:04)
[2020-10-11] MEDS: ISOSORBIDE DINITRATE 10 MG TAB PO SCH (09:53)
[2020-10-11] MEDS ORDERED: REMDESIVIR 100 MG in SODIUM CHLORIDE 0.9% 250ML 250 ML IV ONE (11:00)
[2020-10-11] MEDS ORDERED: SODIUM CHLORIDE 0.9% 50 ML IVPB IV ONE (11:30)
[2020-10-11] MEDS: MORPHINE 2 MG/1 ML INJ IV PRN (14:08)
--- NOTE | 2020-10-11 14:27 | Discharge Summary ---
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 Work-up in the emergency department revealed thrombocytosis, hyponatremia and her chest x-ray showed increased bibasilar opacities which represent atelectasis or evolving pneumonia. Patient was admitted to the hosp ital service as a COVID-19 PUI and initiated on azithromycin and cefepime and infectious disease was consulted. On 10/14 COVID-19 PCR was positive. On 10/13 her exercise pulse ox decreased to 89% on room air however today a repeat exercise walks decreased to 92. She is s/p remdesivir therapy from 10/07 through 10/11. Patient will be discharged home with dexamethasone 6 mg daily to complete her 10-day course. Patient will be discharged with low-dose Metformin and will need to follow-up with her primary care physician within 1 to 2 weeks of discharge. Patient will need to follow-up with GI within 1 to 2 weeks of discharge. (1) Sepsis Current Visit: Yes Status: Acute Qualifiers: Acute respiratory failure type: with hypoxia Plan to address problem: Patient presented with a low-grade fever of 99.5, tachycardia, lactic acidosis, hypoxic on ambulation and a COVID-19 PCR was positive. Infectious disease consulted Antibiotic therapy 10/05 BC x2 no growth to date (2) Pneumonia due to COVID-19 virus Current Visit: Yes Status: Acute Plan to address problem: 10/06 COVID-19 PCR positive ID consulted Azithromycin and cefepime initiated, azithromycin changed to p.o. on 10/07 due to lack of IV access however may stop soon given normal CRP. Pulmonary hygiene Dexamethasone 6 mg daily for 10 days, you will be discharged with a prescription to continue 10-day treatment Supplementary oxygenation as needed, you will not be discharged with home oxygen Patient initiated on remdesivir therapy per ID on 10/07- 10/11 Prone to sleep as needed (3) Acute respiratory failure with hypoxia Current Visit: Yes Status: Resolved Plan to address problem: Patient was hypoxic on ambulation in the ED Supplemental oxygen as needed Ambulation SPO2 on 10/10 decreased to 89% on room air Ambulation SPO2 on 10/11 decreased to 92% therefore she does not qualify for home oxygenation (4) Hyponatremia Current Visit: No Status: Resolved Plan to address problem: 10/02 sodium 134, 10/08 sodium 139 (5) Crohn's disease Current Visit: Yes Status: Chronic Plan to address problem: Patient was recently discharged in August for acute Crohn's flareup Patient was instructed to follow-up with GI outpatient for colonoscopy and possible initiation of immunologic's Continue home prednisone and Pepcid Supportive care (6) HTN (hypertension) Current Visit: No Status: Chronic Plan to address problem: Continue home antihypertensive regimen Blood pressure monitoring per PCP instructions Continue to follow a cardiac consistent carbohydrate diet (7) Diabetes mellitus Current Visit: Yes Status: Chronic Plan to address problem: 10/05 hemoglobin A1c 7.3 Continue to follow cardiac consistent carbohydrate diet (8) Lactic acidosis Current Visit: Yes Status: Resolved Plan to address problem: Presented with a lactic acid of 2.1 10/05 lactic acid 2.8 10/08 lactic acid 0.8 Secondary to COVID-19 infection (9) Hypokalemia Current Visit: No Status: resolved Plan to address problem: 10/08 potassium 3.1, 10/09 3.4, 10/14 k 4.3 Disposition: -01 TO HOME OR SELFCARE Time spent for discharge: 35 Core Measure Documentation - Palliative Care Palliative Care/ Comfort Measures: Not Applicable - Core Measures Any of the following diagnoses?: none Exam - Physical Exam Narrative exam: General appearance: Present: no acute distress, well-nourished - EENT Eyes: Present: PERRL, EOM intact ENT: hearing intact, clear oral mucosa, dentition normal - Neck Neck: Present: supple, normal ROM - Respiratory Respiratory effort: normal Respiratory: bilateral: CTA - Cardiovascular Rhythm: regular Heart Sounds: Present: S1 & S2. Absent: gallop, rub - Extremities Extremities: no ischemia, No edema, Full ROM - Abdominal General gastrointestinal: soft, non-tender, non-distended, normal bowel sounds - Integumentary Integumentary: Present: clear, warm, dry - Neurologic Neurologic: CNII-XII intact, moves all extremities - Constitutional Vitals: Temp Pulse Resp BP Pulse Ox 98.3 F 90 18 129/87 95 10/11/20 12:12 10/11/20 12:12 10/11/20 12:12 10/11/20 12:12 10/11/20 12:12 Plan Activity: advance as tolerated Diet: low fat, low cholesterol, low salt, diabetic, low carbohydrate Special Instructions: record daily BP diary, record blood sugar diary Additional Instructions: Present to your nearest emergency department with contact primary care physician if experience worsening symptoms. Follow-up with your primary care physician within 1 to 2 weeks of discharge. Follow the COVID-19 guidelines set forth by the CDC and they will be contained in the booklet that you will be provided by your nurse. Follow up with: PRIMARY CAREMD [Primary Care Provider] - 3-5 Days Prescriptions: Amitriptyline [Elavil] 25 mg PO QHS #30 tab dexAMETHasone [Decadron] 6 mg PO DAILY #7 tablet metFORMIN [Glucophage] 500 mg PO QDAY #30 tab Other Discharge Orders: Glucometer (Amb) Location: None Selected Glucometer supplies[Amb] Location: None Selected Test Strips for Blood Sugar Monitoring Location: None Selected
[2020-10-11 15:00] LABS: Blood Urea Nitrogen 12 mg/dL (7-17); Calcium 8.5 mg/dL (8.4-10.2); Hemolysis Index 41
[2020-10-11 15:19] LABS: BUN/Creatinine Ratio 24
[2020-10-11 17:12] VITALS: BP 143/96
[2020-10-12] MEDS ORDERED: DEXAMETHASONE 4 MG TAB PO SCH (10:00)
== END 2020-10-11 17:55 | disposition home or self-care (01) | DRG 871 ==
LOC: ED 09:22 → 3A 18:39
PROVIDERS: ADMIT Internal Medicine; ATTEND Hospitalist
PROC: XW033E5 Introduction of Remdesivir Anti-infective into Peripheral Vein, Percutaneous Approach, New Technology Group 5 (ICD-10-PCS; principal; 2020-10-07)
PROC: XW033E5 Introduction of Remdesivir Anti-infective into Peripheral Vein, Percutaneous Approach, New Technology Group 5 (ICD-10-PCS; 2020-10-08)
PROC: XW033E5 Introduction of Remdesivir Anti-infective into Peripheral Vein, Percutaneous Approach, New Technology Group 5 (ICD-10-PCS; 2020-10-11)
DX: A41.89 Other specified sepsis (principal); U07.1 COVID-19; J12.89 Other viral pneumonia; J96.01 Acute respiratory failure with hypoxia; K50.90 Crohn's disease, unspecified, without complications; E87.1 Hypo-osmolality and hyponatremia; E87.2 Acidosis; N17.9 Acute kidney failure, unspecified; I10 Essential (primary) hypertension; D47.3 Essential (hemorrhagic) thrombocythemia; E87.8 Other disorders of electrolyte and fluid balance, not elsewhere classified; E87.6 Hypokalemia; Z88.2 Allergy status to sulfonamides; Z88.5 Allergy status to narcotic agent; Z88.8 Allergy status to other drugs, medicaments and biological substances; Z79.899 Other long term (current) drug therapy
CPT/HCPCS: 36415; 71046; 80048; 80053; 81001; 82140; 82728; 82947; 82962; 83036; 83615; 83880; 84145; 85025; 85379; 86140; 87040; 94760; 96365; 96375; 96376; G0378; J0456; J0696; J1100; J1170; J1650; J2270; J2405; J2543; J7030; J7050; J7512; U0003

== ENCOUNTER 2020-12-12 16:19 | Emergency (ER) | payer SELFPAY ==
[2020-12-12 16:54] VITALS: BP 150/104
--- NOTE | 2020-12-12 18:03 | Emergency Department Report ---
ED General Adult HPI - General Chief complaint: Fall Stated complaint: BACK/BUTTOCK INJURY/FALL Time Seen by Provider: 12/12/20 17:57 Source: patient Mode of arrival: Ambulatory Limitations: No Limitations - Related Data Previous Rx's Medication Instructions Recorded Last Taken Type Acetaminophen [Acetaminophen TAB] 650 mg PO Q4H PRN tablet 09/22/20 Unknown Rx Antacid [Alum-Mag Hydrox-Simeth 30 ml PO Q4H PRN oral.liqd 09/22/20 Unknown Rx [id number]/5Ml] Docusate Sodium [Colace CAP] 100 mg PO BID capsule 09/22/20 Unknown Rx Isosorbide Dinitrate [Isordil] 10 mg PO DAILY #30 tablet 09/22/20 Unknown Rx Sennosides Tab [Senokot] 8.6 mg PO Q12HR tablet 09/22/20 Unknown Rx predniSONE 10 mg PO QDAY #40 tab 09/22/20 Unknown Rx Acetaminophen [Acetaminophen TAB] 650 mg PO Q4H PRN tablet 10/11/20 Unknown Rx Amitriptyline [Elavil] 25 mg PO QHS #30 tab 10/11/20 Unknown Rx dexAMETHasone [Decadron] 6 mg PO DAILY #7 tablet 10/11/20 Unknown Rx guaiFENesin/CODEINE [Robitussin AC] 10 ml PO QID PRN oral.liqd 10/11/20 Unknown Rx metFORMIN [Glucophage] 500 mg PO QDAY #30 tab 10/11/20 Unknown Rx Allergies Allergy/AdvReac Type Severity Reaction Status Date / Time hydromorphone [From Dilaudid] Allergy Hives Verified 10/05/20 21:05 ketorolac [From Toradol] Allergy Hives Verified 10/05/20 21:05 Sulfa (Sulfonamide Allergy Hives Verified 10/05/20 21:05 Antibiotics) ED Review of Systems ROS: Stated complaint: BACK/BUTTOCK INJURY/FALL Other details as noted in HPI ED Past Medical Hx - Past Medical History Previous Medical History?: Yes Hx Hypertension: Yes Hx Congestive Heart Failure: No Hx Diabetes: No Hx Asthma: No Hx COPD: No Additional medical history: Crohn's disease - Surgical History Past Surgical History?: Yes Additional Surgical History: Tonsils, CSection, Knee - Social History Smoking Status: Never Smoker Substance Use Type: Prescribed - Medications Home Medications: Home Medications Medication Instructions Recorded Confirmed Last Taken Type Acetaminophen [Acetaminophen TAB] 650 mg PO Q4H PRN tablet 09/22/20 10/08/20 Unknown Rx Antacid [Alum-Mag Hydrox-Simeth 30 ml PO Q4H PRN oral.liqd 09/22/20 10/08/20 Unknown Rx [id number]/5Ml] Docusate Sodium [Colace CAP] 100 mg PO BID capsule 09/22/20 10/08/20 Unknown Rx Isosorbide Dinitrate [Isordil] 10 mg PO DAILY #30 tablet 09/22/20 10/08/20 Unknown Rx Sennosides Tab [Senokot] 8.6 mg PO Q12HR tablet 09/22/20 10/08/20 Unknown Rx predniSONE 10 mg PO QDAY #40 tab 09/22/20 10/08/20 Unknown Rx Acetaminophen [Acetaminophen TAB] 650 mg PO Q4H PRN tablet 10/11/20 Unknown Rx Amitriptyline [Elavil] 25 mg PO QHS #30 tab 10/11/20 Unknown Rx dexAMETHasone [Decadron] 6 mg PO DAILY #7 tablet 10/11/20 Unknown Rx guaiFENesin/CODEINE [Robitussin AC] 10 ml PO QID PRN oral.liqd 10/11/20 Unknown Rx metFORMIN [Glucophage] 500 mg PO QDAY #30 tab 10/11/20 Unknown Rx ED Physical Exam - General Limitations: No Limitations ED Course Vital Signs 12/12/20 16:50 Temperature 98.7 F Pulse Rate 117 H Respiratory 18 Rate Blood Pressure 150/104 O2 Sat by Pulse 94 Oximetry Critical care attestation.: If time is entered above; I have spent that time in minutes in the direct care of this critically ill patient, excluding procedure time. ED Disposition Clinical Impression: HTN (hypertension) Qualifiers: Hypertension type: unspecified Qualified Code(s): I10 - Essential (primary) hypertension Condition: Stable Instructions: Hypertension (ED) Referrals: PRIMARY CARE, [Primary Care Provider] - 3-5 Days
[2020-12-12] MEDS ORDERED: ACETAMINOPHEN 500 MG TAB PO ONE (18:07)
--- NOTE | 2020-12-12 18:09 | Emergency Department Report ---
ED Back Pain/Injury HPI - General Chief Complaint: Fall Stated Complaint: BACK/BUTTOCK INJURY/FALL Time Seen by Provider: 12/12/20 17:57 Source: patient Limitations: No Limitations - History of Present Illness Initial Comments: The patient was evaluated in the emergency department for symptoms described in the history of present illness. He/she was evaluated in the context of the global COVID-19 pandemic, which necessitated consideration that the patient might be at risk for infection with the virus that causes COVID-19. Institutional protocols and algorithms that pertain to the evaluation of patients at risk for COVID-19 are in a state of rapid change based on information released by regulatory bodies including the CDC and federal and state organizations. These policies and algorithms were followed during the patient's care in the emergency department. Please note that these policies, procedures and recommendations changed on a rapid basis. 55-year-old -[place] female presents to the emergency room for coccyx and back pain. Patient states that she had fallen in [place] on 11/25/2020 and had had injured her coccyx and lower back. Patient states that she went to [facility] her CT scans were negative patient states her pain is increasing. Patient reports that she is having trouble sleeping having difficulty sitting down. Patient was recently diagnosed with high blood pressure and diabetes and is currently out of medication as she has been visiting here from [place] for the last for 5 months. Patient denies any dysuria but reports she just feels pressure down there. She denies any fever chills no nausea no vomiting. MD Complaint: back pain Onset/Timin -: week(s) Similar Symptoms Previously: No Place: street Radiation: buttocks Severity: severe Severity scale (0 -10): 10 Quality: sharp, stabbing, crushing Consistency: constant Improves With: none Worsens With: sitting upright, walking Context: fall Associated Symptoms: denies other symptoms - Related Data Previous Rx's Medication Instructions Recorded Last Taken Type Acetaminophen [Acetaminophen TAB] 650 mg PO Q4H PRN tablet 09/22/20 Unknown Rx Antacid [Alum-Mag Hydrox-Simeth 30 ml PO Q4H PRN oral.liqd 09/22/20 Unknown Rx [id number]/5Ml] Docusate Sodium [Colace CAP] 100 mg PO BID capsule 09/22/20 Unknown Rx Isosorbide Dinitrate [Isordil] 10 mg PO DAILY #30 tablet 09/22/20 Unknown Rx Sennosides Tab [Senokot] 8.6 mg PO Q12HR tablet 09/22/20 Unknown Rx predniSONE 10 mg PO QDAY #40 tab 09/22/20 Unknown Rx Acetaminophen [Acetaminophen TAB] 650 mg PO Q4H PRN tablet 10/11/20 Unknown Rx Amitriptyline [Elavil] 25 mg PO QHS #30 tab 10/11/20 Unknown Rx dexAMETHasone [Decadron] 6 mg PO DAILY #7 tablet 10/11/20 Unknown Rx guaiFENesin/CODEINE [Robitussin AC] 10 ml PO QID PRN oral.liqd 10/11/20 Unknown Rx metFORMIN [Glucophage] 500 mg PO QDAY #30 tab 10/11/20 Unknown Rx traMADoL [Ultram 50 MG tab] 50 mg PO Q6HR PRN #12 tablet 12/12/20 Unknown Rx Allergies Allergy/AdvReac Type Severity Reaction Status Date / Time hydromorphone [From Dilaudid] Allergy Hives Verified 10/05/20 21:05 ketorolac [From Toradol] Allergy Hives Verified 10/05/20 21:05 Sulfa (Sulfonamide Allergy Hives Verified 10/05/20 21:05 Antibiotics) ED Review of Systems ROS: Stated complaint: BACK/BUTTOCK INJURY/FALL Other details as noted in HPI Comment: All other systems reviewed and negative ED Past Medical Hx - Past Medical History Previous Medical History?: Yes Hx Hypertension: Yes Hx Congestive Heart Failure: No Hx Diabetes: No Hx Asthma: No Hx COPD: No Additional medical history: Crohn's disease - Surgical History Past Surgical History?: Yes Additional Surgical History: Tonsils, CSection, Knee - Social History Smoking Status: Never Smoker Substance Use Type: Prescribed - Medications Home Medications: Home Medications Medication Instructions Recorded Confirmed Last Taken Type Acetaminophen [Acetaminophen TAB] 650 mg PO Q4H PRN tablet 09/22/20 10/08/20 Unknown Rx Antacid [Alum-Mag Hydrox-Simeth 30 ml PO Q4H PRN oral.liqd 09/22/20 10/08/20 Unknown Rx [id number]/5Ml] Docusate Sodium [Colace CAP] 100 mg PO BID capsule 09/22/20 10/08/20 Unknown Rx Isosorbide Dinitrate [Isordil] 10 mg PO DAILY #30 tablet 09/22/20 10/08/20 Unknown Rx Sennosides Tab [Senokot] 8.6 mg PO Q12HR tablet 09/22/20 10/08/20 Unknown Rx predniSONE 10 mg PO QDAY #40 tab 09/22/20 10/08/20 Unknown Rx Acetaminophen [Acetaminophen TAB] 650 mg PO Q4H PRN tablet 10/11/20 Unknown Rx Amitriptyline [Elavil] 25 mg PO QHS #30 tab 10/11/20 Unknown Rx dexAMETHasone [Decadron] 6 mg PO DAILY #7 tablet 10/11/20 Unknown Rx guaiFENesin/CODEINE [Robitussin AC] 10 ml PO QID PRN oral.liqd 10/11/20 Unknown Rx metFORMIN [Glucophage] 500 mg PO QDAY #30 tab 10/11/20 Unknown Rx traMADoL [Ultram 50 MG tab] 50 mg PO Q6HR PRN #12 tablet 12/12/20 Unknown Rx ED Physical Exam - General Limitations: No Limitations General appearance: alert, in distress - Head Head exam: Present: atraumatic, normocephalic - Eye Eye exam: Present: normal appearance - ENT ENT exam: Present: mucous membranes moist - Respiratory Respiratory exam: Absent: accessory muscle use - Back Exam Back exam: Present: full ROM, tenderness, paraspinal tenderness, vertebral tenderness (Kocsis and paraspinal) - Neurological Exam Neurological exam: Present: alert, oriented X3, normal gait - Psychiatric Psychiatric exam: Present: normal affect, normal mood - Skin Skin exam: Present: warm, dry, intact, normal color. Absent: rash ED Course Vital Signs 12/12/20 12/12/20 16:50 18:26 Temperature 98.7 F Pulse Rate 117 H Respiratory 18 18 Rate Blood Pressure 150/104 O2 Sat by Pulse 94 Oximetry ED Medical Decision Making - Radiology Data Radiology results: report reviewed Patient: LEÓN LLANES MR#: [id number] : 1965 Acct:[id number] Age/Sex: 55 / F ADM Date: 12/12/20 Loc: ED Attending Dr: Ordering Physician: AL BHATT Date of Service: 12/12/20 Procedure(s): XR spine sacrum/coccyx 2+V Accession Number(s): [id number] cc: AL BHATT Fluoro Time In Minutes: . SACRUM 3 VIEW(S) INDICATION / CLINICAL INFORMATION: MAIN COMPARISON: CT abdomen and pelvis dated 09/20/2020. FINDINGS: BONES / JOINT(S): No acute fracture or subluxation. Mild irregularity noted of the distal sacrum and coccyx is similar to prior CT dated 09/20/2020, likely represents remote trauma. SOFT TISSUES: Phleboliths noted over the pelvis. ADDITIONAL FINDINGS: None. Signer Name: Adam Vogt MD Signed: 12/12/2020 6:42 PM Workstation Name: [id number] Transcribed By: CH Dictated By: ADAM VOGT Electronically Authenticated By: ADAM VOGT Signed Date/Time: 12/12/201841 DD/ 39 TD/TT: - Medical Decision Making 55-year-old -[place] female presents to the emergency room for coccyx and back pain. Patient states that she had fallen in [place] on 11[place]25/2020 and had had injured her coccyx and lower back. Patient states that she went to [facility] her CT scans were negative patient states her pain is increasing. Patient reports that she is having trouble sleeping having difficulty sitting down. Patient was recently diagnosed with high blood pressure and diabetes and is currently out of medication as she has been visiting here from [place] for the last for 5 months. Patient denies any dysuria but reports she just feels pressure down there. She denies any fever chills no nausea no vomiting. Acetaminophen 1 g, urinalysis and x-ray of her coccyx. Urinalysis is negative for any infection. X-ray of her coccyx is negative. Patient be discharged home on tramadol. Critical care attestation.: If time is entered above; I have spent that time in minutes in the direct care of this critically ill patient, excluding procedure time. ED Disposition Clinical Impression: Pain in the coccyx HTN (hypertension) Qualifiers: Hypertension type: unspecified Qualified Code(s): I10 - Essential (primary) hypertension Disposition: TO HOME OR SELFCARE Is pt being admited?: No Does the pt Need Aspirin: No Condition: Stable Instructions: Hypertension (ED) Additional Instructions: Urinalysis is negative for any acute infection x-ray is negative for any fractures or subluxation. I recommend to take the pain medication follow-up with a primary care provider in the next 2 to 3 days. Also recommend a doughnut that she can get from the pharmacy to sit on to prevent pressure to your coccyx bone. Prescriptions: traMADoL [Ultram 50 MG tab] 50 mg PO Q6HR PRN #12 tablet PRN Reason: Pain Referrals: PRIMARY MD NAREN [Primary Care Provider] - 3-5 Days BARRETT ROJAS MD [Staff Physician] - 3-5 Days CHRIS KENNEDY MD [Staff Physician] - 3-5 Days GLENROY KENNEDY MD [Referring] - 3-5 Days ABRAHAM ESTRELLA MD [Staff Physician] - 3-5 Days Forms: Work/School Release Form(ED)
--- NOTE | 2020-12-12 18:46 | XRay Report ---
. SACRUM 3 VIEW(S) INDICATION / CLINICAL INFORMATION: MAIN COMPARISON: CT abdomen and pelvis dated 09/20/2020. FINDINGS: BONES / JOINT(S): No acute fracture or subluxation. Mild irregularity noted of the distal sacrum and coccyx is similar to prior CT dated 09/20/2020, likely represents remote trauma. SOFT TISSUES: Phleboliths noted over the pelvis. ADDITIONAL FINDINGS: None. Signer Name: Adam Saucedo MD Signed: 12/12/2020 6:42 PM Workstation Name: [id number]
[2020-12-12 19:14] LABS: Bilirubin,Urine NEG (Negative); Blood,Urine NEG (Negative); Color,Urine Yellow (Yellow); Mucus,Urine FEW /HPF; Protein,Urine <15 mg/dL mg/dL (Negative); Urobilinogen,Urine < 2.0 mg/dL (<2.0)
== END 2020-12-12 20:03 | disposition home or self-care (01) ==
LOC: ED 16:19
DX: M53.3 Sacrococcygeal disorders, not elsewhere classified (principal); I10 Essential (primary) hypertension; Z79.899 Other long term (current) drug therapy; Z88.2 Allergy status to sulfonamides; Z88.8 Allergy status to other drugs, medicaments and biological substances; Z98.890 Other specified postprocedural states
CPT/HCPCS: 72220; 81001

== ENCOUNTER 2021-02-16 09:17 | Emergency (ER) | payer MEDICAID ==
[2021-02-16 09:26] VITALS: BP 162/105
--- NOTE | 2021-02-16 09:39 | Emergency Department Report ---
- General Chief Complaint: Upper Respiratory Infection Stated Complaint: COUGH/MUCUS Time Seen by Provider: 02/16/21 09:28 Source: patient Mode of arrival: Ambulatory Limitations: No Limitations - History of Present Illness Initial Comments: Is a pleasant 56-year-old female who presents to the emergency department with a chief complaint of a productive cough with clear mucus, right ear pain, postnasal drip and tickling in her throat over the past 3 days. She reports some tightness in her chest when she coughs or takes deep breath. She denies any associated fever, chills, night sweats, headache, dizziness, blurry vision, nausea, vomiting, diarrhea, chest pain, shortness of breath, weakness or any other associated symptoms. She has past medical history of Crohn's disease. She denies any oral contraceptive or estrogen use, recent immobilization or travel. She reports she had Covid last year. She denies any loss of taste or smell, diarrhea, body aches. - Related Data Previous Rx's Medication Instructions Recorded Last Taken Type Acetaminophen [Acetaminophen TAB] 650 mg PO Q4H PRN tablet 09/22/20 Unknown Rx Antacid [Alum-Mag Hydrox-Simeth 30 ml PO Q4H PRN oral.liqd 09/22/20 Unknown Rx [id number]/5Ml] Docusate Sodium [Colace CAP] 100 mg PO BID capsule 09/22/20 Unknown Rx Sennosides Tab [Senokot] 8.6 mg PO Q12HR tablet 09/22/20 Unknown Rx predniSONE 10 mg PO QDAY #40 tab 09/22/20 Unknown Rx Acetaminophen [Acetaminophen TAB] 650 mg PO Q4H PRN tablet 10/11/20 Unknown Rx Amitriptyline [Elavil] 25 mg PO QHS #30 tab 10/11/20 Unknown Rx dexAMETHasone [Decadron] 6 mg PO DAILY #7 tablet 10/11/20 Unknown Rx guaiFENesin/CODEINE [Robitussin AC] 10 ml PO QID PRN oral.liqd 10/11/20 Unknown Rx metFORMIN [Glucophage] 500 mg PO QDAY #30 tab 10/11/20 Unknown Rx traMADoL [Ultram 50 MG tab] 50 mg PO Q6HR PRN #12 tablet 12/12/20 Unknown Rx Albuterol Sulfate [Proventil Hfa] 6.7 gm IH Q4HR #1 hfa.aer.ad 02/16/21 Unknown Rx Amitriptyline [Elavil] 10 mg PO QHS #20 tab 02/16/21 Unknown Rx Amoxicillin/Potassium Clav 1 each PO BID #20 tablet 02/16/21 Unknown Rx [Augmentin 875-125 Tablet] Fluticasone [Flonase] 1 spray NS QDAY #1 bottle 02/16/21 Unknown Rx Isosorbide Dinitrate [Isordil 5 mg PO BID #60 tablet 02/16/21 Unknown Rx Titradose] Loratadine [Claritin] 10 mg PO DAILY #30 tablet 02/16/21 Unknown Rx Allergies Allergy/AdvReac Type Severity Reaction Status Date / Time hydromorphone [From Dilaudid] Allergy Hives Verified 02/16/21 09:22 ketorolac [From Toradol] Allergy Hives Verified 02/16/21 09:22 Sulfa (Sulfonamide Allergy Hives Verified 02/16/21 09:22 Antibiotics) ED Review of Systems ROS: Stated complaint: COUGH/MUCUS Other details as noted in HPI Constitutional: denies: chills, fever Eyes: denies: eye pain, eye discharge, vision change ENT: as per HPI, ear pain, congestion. denies: throat pain Respiratory: cough. denies: shortness of breath, wheezing Cardiovascular: as per HPI. denies: chest pain, palpitations Endocrine: no symptoms reported Gastrointestinal: denies: abdominal pain, nausea, diarrhea Genitourinary: denies: urgency, dysuria, discharge Musculoskeletal: denies: back pain, joint swelling, arthralgia Skin: denies: rash, lesions Neurological: denies: headache, weakness, paresthesias Psychiatric: denies: anxiety, depression Hematological/Lymphatic: denies: easy bleeding, easy bruising ED Past Medical Hx - Past Medical History Hx Hypertension: Yes Hx Congestive Heart Failure: No Hx Diabetes: No Hx Asthma: No Hx COPD: No Additional medical history: Crohn's disease - Surgical History Additional Surgical History: Tonsils, CSection, Knee - Social History Smoking Status: Never Smoker Substance Use Type: None - Medications Home Medications: Home Medications Medication Instructions Recorded Confirmed Last Taken Type Acetaminophen [Acetaminophen TAB] 650 mg PO Q4H PRN tablet 09/22/20 10/08/20 Unknown Rx Antacid [Alum-Mag Hydrox-Simeth 30 ml PO Q4H PRN oral.liqd 09/22/20 10/08/20 Unknown Rx [id number]/5Ml] Docusate Sodium [Colace CAP] 100 mg PO BID capsule 09/22/20 10/08/20 Unknown Rx Sennosides Tab [Senokot] 8.6 mg PO Q12HR tablet 09/22/20 10/08/20 Unknown Rx predniSONE 10 mg PO QDAY #40 tab 09/22/20 10/08/20 Unknown Rx Acetaminophen [Acetaminophen TAB] 650 mg PO Q4H PRN tablet 10/11/20 Unknown Rx Amitriptyline [Elavil] 25 mg PO QHS #30 tab 10/11/20 Unknown Rx dexAMETHasone [Decadron] 6 mg PO DAILY #7 tablet 10/11/20 Unknown Rx guaiFENesin/CODEINE [Robitussin AC] 10 ml PO QID PRN oral.liqd 10/11/20 Unknown Rx metFORMIN [Glucophage] 500 mg PO QDAY #30 tab 10/11/20 Unknown Rx traMADoL [Ultram 50 MG tab] 50 mg PO Q6HR PRN #12 tablet 12/12/20 Unknown Rx Albuterol Sulfate [Proventil Hfa] 6.7 gm IH Q4HR #1 hfa.aer.ad 02/16/21 Unknown Rx Amitriptyline [Elavil] 10 mg PO QHS #20 tab 02/16/21 Unknown Rx Amoxicillin/Potassium Clav 1 each PO BID #20 tablet 02/16/21 Unknown Rx [Augmentin 875-125 Tablet] Fluticasone [Flonase] 1 spray NS QDAY #1 bottle 02/16/21 Unknown Rx Isosorbide Dinitrate [Isordil 5 mg PO BID #60 tablet 02/16/21 Unknown Rx Titradose] Loratadine [Claritin] 10 mg PO DAILY #30 tablet 02/16/21 Unknown Rx ED Physical Exam - General Limitations: No Limitations General appearance: alert, in no apparent distress - Head Head exam: Present: atraumatic, normocephalic - Eye Eye exam: Present: normal appearance, PERRL, EOMI Pupils: Present: normal accommodation - ENT ENT exam: Present: mucous membranes moist, other (WithErythema and bulging to the right tympanic membrane air-fluid level and a serous effusion. No mastoid tenderness.). Absent: normal exam, normal orophraynx, TM's normal bilaterally - Neck Neck exam: Present: normal inspection, full ROM. Absent: tenderness, meningismus - Respiratory Respiratory exam: Present: normal lung sounds bilaterally, wheezes (Mild expiratory wheeze in the right upper lung snyder), chest wall tenderness (Tenderness to the right side the chest wall). Absent: respiratory distress, rales, rhonchi, stridor, accessory muscle use, decreased breath sounds, prolonged expiratory - Cardiovascular Cardiovascular Exam: Present: regular rate, normal rhythm, normal heart sounds. Absent: systolic murmur, diastolic murmur, rubs, gallop - GI/Abdominal GI/Abdominal exam: Present: soft, normal bowel sounds. Absent: distended, tenderness, guarding, rebound, rigid - Extremities Exam Extremities exam: Present: normal inspection, full ROM, normal capillary refill. Absent: tenderness, calf tenderness (No posterior calf tenderness, no palpable cords, negative Homans' sign bilaterally.) - Back Exam Back exam: Present: normal inspection, full ROM. Absent: tenderness, CVA tenderness (R), CVA tenderness (L) - Neurological Exam Neurological exam: Present: alert, oriented X3, normal gait - Psychiatric Psychiatric exam: Present: normal affect, normal mood - Skin Skin exam: Present: warm, dry, intact, normal color. Absent: rash ED Course Vital Signs 02/16/21 09:22 Temperature 98.5 F Pulse Rate 98 H Respiratory 24 Rate Blood Pressure 162/105 O2 Sat by Pulse 99 Oximetry - Reevaluation(s) Reevaluation #1: 02/16/21 09:36 Patient nontoxic and in no acute distress. Wells criteria is low patient is a low risk for PE with no pleuritic chest pain, hypoxia, tachycardia, hemoptysis, history of PE or DVT or exogenous estrogen use. Her lungs were relatively clear other than some mild wheezing. Chest x-ray was ordered due to her history of frequent pneumonia to rule this out. Her exam was consistent with acute otitis media of the right ear which we will treat with antibiotics. The remainder of her exam was consistent with postnasal drip likely from allergic rhinitis and recommended antihistamines and Flonase. Reevaluation #2: 02/16/21 09:57 Patient's x-ray did not show any acute infiltrates or other acute abnormalities. Pending official radiology review. Patient requested we refill her amitriptyline iso-Sorbide blood pressure medication due to her not having a primary care doctor and not being from this area. ED Medical Decision Making - Radiology Data Radiology results: report reviewed, image reviewed Ordering Physician: AL SANCHEZ Date of Service: 02/16/21 Procedure(s): XR chest routine 2V Accession Number(s): [id number] cc: AL SANCHEZ Fluoro Time In Minutes: CHEST 2 VIEWS INDICATION / CLINICAL INFORMATION: cough, congestion. COMPARISON: 10/05/2020 FINDINGS: SUPPORT DEVICES: None. HEART / MEDIASTINUM: Stable. LUNGS / PLEURA: Near complete interval resolution of previous noted bibasilar pulmonary opacities with mild residual remaining. No pneumothorax or pleural effusion. ADDITIONAL FINDINGS: No significant additional findings. IMPRESSION: 1. Near complete interval resolution of previous noted bibasilar pulmonary opacities with persistent bibasilar pulmonary opacities could represent residual versus mild recurrent infectious process. Clinical correlation is needed. Signer Name: Emely Vogt MD Signed: 02/16/2021 9:57 AM Workstation Name: [id number] Transcribed By: Dictated By: EMELY VOGT Electronically Authenticated By: EMELY VOGT Signed Date/Time: 02/16/21 0957 - Differential Diagnosis Pneumonia, COVID-19, upper respiratory infection, allergic rhinitis Critical care attestation.: If time is entered above; I have spent that time in minutes in the direct care of this critically ill patient, excluding procedure time. ED Disposition Clinical Impression: Post-nasal drip Acute otitis media Qualifiers: Otitis media type: suppurative Laterality: right Recurrence: non-recurrent Spontaneous tympanic membrane rupture: without spontaneous rupture Qualified Code(s): H66.001 - Acute suppurative otitis media without spontaneous rupture of ear drum, right ear Disposition: DC-01 TO HOME OR SELFCARE Is pt being admited?: No Condition: Stable Instructions: Otitis Media, Adult Prescriptions: Amitriptyline [Elavil] 10 mg PO QHS #20 tab Amoxicillin/Potassium Clav [Augmentin 875-125 Tablet] 1 each PO BID #20 tablet Loratadine [Claritin] 10 mg PO DAILY #30 tablet Fluticasone [Flonase] 1 spray NS QDAY #1 bottle Isosorbide Dinitrate [Isordil Titradose] 5 mg PO BID #60 tablet Albuterol Sulfate [Proventil Hfa] 6.7 gm IH Q4HR #1 hfa.aer.ad Referrals: PRIMARY CAREMD [Primary Care Provider] - 3-5 Days [facility] [Provider Group] - 3-5 Days BARRETT ROJAS MD [Staff Physician] - 3-5 Days Time of Disposition: 09:58
--- NOTE | 2021-02-16 10:01 | XRay Report ---
CHEST 2 VIEWS INDICATION / CLINICAL INFORMATION: cough, congestion. COMPARISON: 10/05/2020 FINDINGS: SUPPORT DEVICES: None. HEART / MEDIASTINUM: Stable. LUNGS / PLEURA: Near complete interval resolution of previous noted bibasilar pulmonary opacities wit h mild residual remaining. No pneumothorax or pleural effusion. ADDITIONAL FINDINGS: No significant additional findings. IMPRESSION: 1. Near complete interval resolution of previous noted bibasilar pulmonary opacities with persistent bibasilar pulmonary opacities could represent residual versus mild recurrent infectious process. Clin ical correlation is needed. Signer Name: Adam Saucedo MD Signed: 02/16/2021 9:57 AM Workstation Name: [id number]
== END 2021-02-16 11:41 | disposition home or self-care (01) ==
LOC: ED 09:17
DX: R09.82 Postnasal drip (principal); H66.91 Otitis media, unspecified, right ear; I10 Essential (primary) hypertension; Z79.82 Long term (current) use of aspirin; Z79.899 Other long term (current) drug therapy; Z88.2 Allergy status to sulfonamides; Z88.8 Allergy status to other drugs, medicaments and biological substances
CPT/HCPCS: 71046; 99283

== ENCOUNTER 2021-04-05 19:04 | Emergency (ER) | payer MEDICAID ==
[2021-04-05] MEDS ORDERED: ALBUTEROL 2.5 MG/3 ML NEBU IH ONE ×2 (19:24→22:31)
[2021-04-05] MEDS ORDERED: ACETAMINOPHEN 500 MG TAB PO ONE ×2 (19:24→22:40)
[2021-04-05] MEDS ORDERED: IPRATROPIUM 0.02% NEBU 2.5 ML IH ONE ×2 (19:24→22:31)
--- NOTE | 2021-04-05 19:27 | Event Note ---
ED Screening Note Date of service: 04/05/21 Time: 19:25 ED Screening Note: 56-year-old female patient with history of diabetes, Crohn's disease, and pneumonia presents to the emergency department with complaints of fever and productive cough for 4 days. No known sick contacts. No current steroid or antibiotic use. Patient was hospitalized with pneumonia on 1 prior occasion. She did not require mechanical ventilation at that time. She is not currently on immunosuppressive therapy for her Crohn's disease. She took DayQuil approximately 3 hours prior to arrival with limited relief. No known history of chronic lung disease. Febrile and tachycardic in triage. Sepsis protocol initiated. General: Awake, appropriately interactive, no acute distress. Neck: Supple. Full range of motion intact. Cardiovascular: Tachycardic. Normal peripheral perfusion. Pulmonary: Diffuse inspiratory and expiratory wheezing throughout. No respiratory distress. Patient is speaking normally without use of accessory muscles. Skin: No apparent rashes or lesions. Neurological: No facial asymmetry. Speech is clear. Follows commands. Patient is alert and oriented. Musculoskeletal: Moves all four extremities spontaneously with normal range of motion. Psych: Cooperative. Appropriate mood and affect. I have greeted and performed a focused rapid initial assessment of this patient. A comprehensive ED assessment and evaluation of the patient, analysis of all test results, and completion of the medical decision-making process will be conducted by additional ED providers. This initial assessment/diagnostic orders/clinical plan/treatment(s) is/are subject to change based on patients health status, clinical progression and re-assessment. Further treatment and workup at subsequent clinical provider's discretion. Patient/guardian urged not to elope from the ED as their condition may be serious if not clinically assessed and managed.
[2021-04-05 19:55] LABS: Basophils # (Auto) 0.1 K/mm3 (0.0-0.1); Basophils % (Auto) 0.9 % (0.0-1.8); Eosinophils # (Auto) 0.6 K/mm3 (0.0-0.4); Eosinophils % (Auto) 6.5 % (0.0-4.3); Hematocrit 37.4 % (30.3-42.9); Hemoglobin 12.3 gm/dl (10.1-14.3); Lymphocytes # (Auto) 1.4 K/mm3 (1.2-5.4); Lymphocytes % (Auto) 16.7 % (13.4-35.0); Mean Corpuscular HGB Conc 33 % (30-34); Mean Corpuscular Volume 81 fl (79-97); Monocytes # (Auto) 0.7 K/mm3 (0.0-0.8); Platelet Count 386 K/mm3 (140-440); Red Blood Count 4.59 M/mm3 (3.65-5.03); Red Cell Distribution Width 19.9 % (13.2-15.2)
[2021-04-05 20:16] LABS: Alanine Aminotransferase 9 units/L (7-56); Albumin 4.1 g/dL (3.9-5); Blood Urea Nitrogen 7 mg/dL (7-17); Calcium 8.9 mg/dL (8.4-10.2); Hemolysis Index 17
[2021-04-05 20:22] LABS: BUN/Creatinine Ratio 12
--- NOTE | 2021-04-05 20:25 | XRay Report ---
CHEST 2 VIEWS INDICATION / CLINICAL INFORMATION: fever/cough. Shortness of breath. COMPARISON: 02/16/21 FINDINGS: SUPPORT DEVICES: None. HEART / MEDIASTINUM: No significant abnormality. LUNGS / PLEURA: No significant pulmonary or pleural abnormality. No pneumothorax. ADDITIONAL FINDINGS: No significant additional findings. IMPRESSION: 1. No acute findings. Signer Name: Antonio Heard MD Signed: 04/05/2021 8:20 PM Workstation Name: [id number]
[2021-04-05] MEDS ORDERED: MAGNESIUM OXIDE 400 MG TAB PO ONE (22:10)
[2021-04-05] MEDS ORDERED: dexAMETHasone 20 MG/5 ML VIAL IM ONE (22:15)
[2021-04-05] MEDS ORDERED: ISOSORBIDE DINITRATE 10 MG TAB PO ONE (22:16)
--- NOTE | 2021-04-06 00:26 | Emergency Department Report ---
- General Chief Complaint: Dyspnea/Respdistress Stated Complaint: CHEST PAIN Time Seen by Provider: 04/05/21 22:15 Source: patient Mode of arrival: Ambulatory Limitations: No Limitations - History of Present Illness Initial Comments: Patient is a 56-year-old female presents emergency room with complaints of a productive cough that began 4 to 5 days ago. She has associated mucus production. Patient has associated chest tightness, shortness of breath, wheezing. Patient states that her grandson was sick with a URI and believes that he got her sick. She states that she is a former smoker. She denies any recent travel. She has associated chills and generalized body aches. She states that she did not notice a fever at home, no vomiting, diarrhea, abdominal pain, urinary symptoms. Past medical history of Crohn's,hypertension. She does not have a primary care doctor. She states that she is out of her medications. She states that she is supposed to be taking amitriptyline and isosorbide. - Related Data Previous Rx's Medication Instructions Recorded Last Taken Type Acetaminophen [Acetaminophen TAB] 650 mg PO Q4H PRN tablet 09/22/20 Unknown Rx Antacid [Alum-Mag Hydrox-Simeth 30 ml PO Q4H PRN oral.liqd 09/22/20 Unknown Rx [id number]/[id number]] Docusate Sodium [Colace CAP] 100 mg PO BID capsule 09/22/20 Unknown Rx Sennosides Tab [Senokot] 8.6 mg PO Q12HR tablet 09/22/20 Unknown Rx predniSONE 10 mg PO QDAY #40 tab 09/22/20 Unknown Rx Acetaminophen [Acetaminophen TAB] 650 mg PO Q4H PRN tablet 10/11/20 Unknown Rx Amitriptyline [Elavil] 25 mg PO QHS #30 tab 10/11/20 Unknown Rx dexAMETHasone [Decadron] 6 mg PO DAILY #7 tablet 10/11/20 Unknown Rx guaiFENesin/CODEINE [Robitussin AC] 10 ml PO QID PRN oral.liqd 10/11/20 Unknown Rx metFORMIN [Glucophage] 500 mg PO QDAY #30 tab 10/11/20 Unknown Rx traMADoL [Ultram 50 MG tab] 50 mg PO Q6HR PRN #12 tablet 12/12/20 Unknown Rx Albuterol Sulfate [Proventil Hfa] 6.7 gm IH Q4HR #1 hfa.aer.ad 02/16/21 Unknown Rx Amoxicillin/Potassium Clav 1 each PO BID #20 tablet 02/16/21 Unknown Rx [Augmentin 875-125 Tablet] Benzonatate [Tessalon Perles] 100 mg PO Q8HR #21 capsule 02/16/21 Unknown Rx Fluticasone [Flonase] 1 spray NS QDAY #1 bottle 02/16/21 Unknown Rx Loratadine [Claritin] 10 mg PO DAILY #30 tablet 02/16/21 Unknown Rx Albuterol Sulfate [Proventil Hfa] 1 inhalation IH TID PRN #1 04/06/21 Unknown Rx hfa.aer.ad Amitriptyline [Elavil] 10 mg PO QHS #20 tab 04/06/21 Unknown Rx Azithromycin [Zithromax TAB] 250 mg PO QDAY 5 Days #6 tablet 04/06/21 Unknown Rx Benzonatate [Tessalon Perles] 100 mg PO Q8HR PRN #14 capsule 04/06/21 Unknown Rx Isosorbide Dinitrate [Isordil 5 mg PO BID #60 tablet 04/06/21 Unknown Rx Titradose] Prednisone [predniSONE 10 mg 10 mg PO .TAPER #1 tab.ds.pk 04/06/21 Unknown Rx (6-Day Pack, 21 Tabs)] Allergies Allergy/AdvReac Type Severity Reaction Status Date / Time hydromorphone [From Dilaudid] Allergy Hives Verified 02/16/21 09:22 ketorolac [From Toradol] Allergy Hives Verified 02/16/21 09:22 Sulfa (Sulfonamide Allergy Hives Verified 02/16/21 09:22 Antibiotics) ED Review of Systems ROS: Stated complaint: CHEST PAIN Other details as noted in HPI Comment: All other systems reviewed and negative ED Past Medical Hx - Past Medical History Hx Hypertension: Yes Hx Congestive Heart Failure: No Hx Diabetes: No Hx Asthma: No Hx COPD: No Additional medical history: Crohn's disease - Surgical History Additional Surgical History: Tonsils, CSection, Knee - Social History Smoking Status: Never Smoker Substance Use Type: None - Medications Home Medications: Home Medications Medication Instructions Recorded Confirmed Last Taken Type Acetaminophen [Acetaminophen TAB] 650 mg PO Q4H PRN tablet 09/22/20 10/08/20 Unknown Rx Antacid [Alum-Mag Hydrox-Simeth 30 ml PO Q4H PRN oral.liqd 09/22/20 10/08/20 Unknown Rx [id number]/5Ml] Docusate Sodium [Colace CAP] 100 mg PO BID capsule 09/22/20 10/08/20 Unknown Rx Sennosides Tab [Senokot] 8.6 mg PO Q12HR tablet 09/22/20 10/08/20 Unknown Rx predniSONE 10 mg PO QDAY #40 tab 09/22/20 10/08/20 Unknown Rx Acetaminophen [Acetaminophen TAB] 650 mg PO Q4H PRN tablet 10/11/20 Unknown Rx Amitriptyline [Elavil] 25 mg PO QHS #30 tab 10/11/20 Unknown Rx dexAMETHasone [Decadron] 6 mg PO DAILY #7 tablet 10/11/20 Unknown Rx guaiFENesin/CODEINE [Robitussin AC] 10 ml PO QID PRN oral.liqd 10/11/20 Unknown Rx metFORMIN [Glucophage] 500 mg PO QDAY #30 tab 10/11/20 Unknown Rx traMADoL [Ultram 50 MG tab] 50 mg PO Q6HR PRN #12 tablet 12/12/20 Unknown Rx Albuterol Sulfate [Proventil Hfa] 6.7 gm IH Q4HR #1 hfa.aer.ad 02/16/21 Unknown Rx Amoxicillin/Potassium Clav 1 each PO BID #20 tablet 02/16/21 Unknown Rx [Augmentin 875-125 Tablet] Benzonatate [Tessalon Perles] 100 mg PO Q8HR #21 capsule 02/16/21 Unknown Rx Fluticasone [Flonase] 1 spray NS QDAY #1 bottle 02/16/21 Unknown Rx Loratadine [Claritin] 10 mg PO DAILY #30 tablet 02/16/21 Unknown Rx Albuterol Sulfate [Proventil Hfa] 1 inhalation IH TID PRN #1 04/06/21 Unknown Rx hfa.aer.ad Amitriptyline [Elavil] 10 mg PO QHS #20 tab 04/06/21 Unknown Rx Azithromycin [Zithromax TAB] 250 mg PO QDAY 5 Days #6 tablet 04/06/21 Unknown Rx Benzonatate [Tessalon Perles] 100 mg PO Q8HR PRN #14 capsule 04/06/21 Unknown Rx Isosorbide Dinitrate [Isordil 5 mg PO BID #60 tablet 04/06/21 Unknown Rx Titradose] Prednisone [predniSONE 10 mg 10 mg PO .TAPER #1 tab.ds.pk 04/06/21 Unknown Rx (6-Day Pack, 21 Tabs)] ED Physical Exam - General Limitations: No Limitations General appearance: alert, in no apparent distress - Head Head exam: Present: atraumatic, normocephalic - Eye Eye exam: Present: normal appearance - ENT ENT exam: Present: mucous membranes moist - Respiratory Respiratory exam: Present: wheezes (bilaterally), prolonged expiratory. Absent: respiratory distress, rales, rhonchi, stridor, chest wall tenderness, accessory muscle use, decreased breath sounds - Cardiovascular Cardiovascular Exam: Present: regular rate, normal rhythm, normal heart sounds. Absent: systolic murmur, diastolic murmur, rubs, gallop - Neurological Exam Neurological exam: Present: alert, oriented X3 - Psychiatric Psychiatric exam: Present: normal affect, normal mood - Skin Skin exam: Present: warm, dry, intact ED Course Vital Signs 04/05/21 04/05/21 04/06/21 19:17 23:30 00:01 Temperature 100.5 F H Pulse Rate 106 H 122 H 133 H Respiratory 20 Rate Blood Pressure 137/87 [Left] Blood Pressure 196/127 138/86 [Right] O2 Sat by Pulse 98 Oximetry 04/06/21 04/06/21 04/06/21 00:18 01:00 01:20 Temperature 98.3 F 98.8 F Pulse Rate 126 H 119 H 116 H Respiratory 12 18 Rate Blood Pressure 125/62 [Left] Blood Pressure 125/61 120/64 125/62 [Right] O2 Sat by Pulse 95 97 Oximetry ED Medical Decision Making - Lab Data Result diagrams: 04/05/21 19:31 04/05/21 19:31 Lab Results 04/05/21 04/05/21 04/05/21 Range/Units 19:31 19:31 19:31 WBC 8.6 (4.5-11.0) K/mm3 RBC 4.59 (3.65-5.03) M/mm3 Hgb 12.3 (10.1-14.3) gm/dl Hct 37.4 (30.3-42.9) % MCV 81 (79-97) fl MCH 27 L (28-32) pg MCHC 33 (30-34) % RDW 19.9 H (13.2-15.2) % Plt Count 386 (140-440) K/mm3 Lymph % (Auto) 16.7 (13.4-35.0) % Calloway % (Auto) 8.0 H (0.0-7.3) % Eos % (Auto) 6.5 H (0.0-4.3) % Baso % (Auto) 0.9 (0.0-1.8) % Lymph # (Auto) 1.4 (1.2-5.4) K/mm3 Calloway # (Auto) 0.7 (0.0-0.8) K/mm3 Eos # (Auto) 0.6 H (0.0-0.4) K/mm3 Baso # (Auto) 0.1 (0.0-0.1) K/mm3 Seg Neutrophils % 67.9 (40.0-70.0) % Seg Neutrophils # 5.8 (1.8-7.7) K/mm3 Sodium 136 L (137-145) mmol/L Potassium 3.7 (3.6-5.0) mmol/L Chloride 98.9 (98-107) mmol/L Carbon Dioxide 24 (22-30) mmol/L Anion Gap 17 mmol/L BUN 7 (7-17) mg/dL Creatinine 0.6 (0.6-1.2) mg/dL Estimated GFR > 60 ml/min BUN/Creatinine Ratio 12 % Glucose 90 (65-100) mg/dL Lactic Acid 0.70 (0.7-2.0) mmol/L Calcium 8.9 (8.4-10.2) mg/dL Magnesium 1.50 L (1.7-2.3) mg/dL Total Bilirubin 0.20 (0.1-1.2) mg/dL AST 17 (5-40) units/L ALT 9 (7-56) units/L Alkaline Phosphatase 129 (35-129) units/L Total Protein 7.8 (6.3-8.2) g/dL Albumin 4.1 (3.9-5) g/dL Albumin/Globulin Ratio 1.1 % Vital Signs 04/05/21 04/05/21 04/06/21 19:17 23:30 00:01 Temperature 100.5 F H Pulse Rate 106 H 122 H 133 H Respiratory 20 Rate Blood Pressure 137/87 [Left] Blood Pressure 196/127 138/86 [Right] O2 Sat by Pulse 98 Oximetry 04/06/21 04/06/21 04/06/21 00:18 01:00 01:20 Temperature 98.3 F 98.8 F Pulse Rate 126 H 119 H 116 H Respiratory 12 18 Rate Blood Pressure 125/62 [Left] Blood Pressure 125/61 120/64 125/62 [Right] O2 Sat by Pulse 95 97 Oximetry - EKG Data EKG shows normal: sinus rhythm, axis, intervals, QRS complexes, ST-T waves Rate: tachycardia (106 bpm) - Radiology Data Radiology results: report reviewed Ordering Physician: AL COSME Date of Service: 04/05/21 Procedure(s): XR chest routine 2V Accession Number(s): [id number] cc: AL COSME Fluoro Time In Minutes: CHEST 2 VIEWS INDICATION / CLINICAL INFORMATION: fever/cough. Shortness of breath. COMPARISON: 02/16/21 FINDINGS: SUPPORT DEVICES: None. HEART / MEDIASTINUM: No significant abnormality. LUNGS / PLEURA: No significant pulmonary or pleural abnormality. No pneumothorax. ADDITIONAL FINDINGS: No significant additional findings. IMPRESSION: 1. No acute findings. Signer Name: Antonio Heard MD Signed: 04/05/2021 8:20 PM Workstation Name: [id number] Transcribed By: DT Dictated By: Cy Heard MD Electronically Authenticated By: Cy Heard MD Signed Date/Time: 04/05/212019 DD/ 18 TD/TT: - Medical Decision Making Patient is a 56-year-old female presents emergency room with complaints of a productive cough that began 4 to 5 days ago. She has associated mucus production. Patient has associated chest tightness, shortness of breath, wheezing. Patient states that her grandson was sick with a URI and believes that he got her sick. She states that she is a former smoker. She denies any recent travel. She has associated chills and generalized body aches. She states that she did not notice a fever at home, no vomiting, diarrhea, abdominal pain, urinary symptoms. Past medical history of Crohn's,hypertension. She does not have a primary care doctor. She states that she is out of her medicati ons. She states that she is supposed to be taking amitriptyline and isosorbide. Vitals with low-grade fever and tachycardia. On exam patient has wheezing throughout. Labs with hypomagnesium, otherwise normal, repleted with magnesium oxide. EKG shows sinus tachycardia, otherwise stable. Chest x-ray with no acute process. Patient given continuous neb treatment and dexamethasone IM. On reexamination patient has good air movement and wheezing is significantly improved, she is feeling better just takes that she has some mild chest tightness. She denies any pleuritic chest pain. Patient is low risk based on Wells criteria for PE, PE unlikely. Symptoms and examination are most consistent with acute bronchitis. Patient is presenting with the symptoms during COVID-19 pandemic, discussed COVID-19 with patient, discussed return cautions, discussed outpatient testing, discussed self quarantine. Patient was ambulated in the emergency department was able to maintain oxygen saturation of 94% or greater on room air. Patient continued to have some tachycardia likely due to 10 mg of albuterol. Patient requesting refill of her medications, given refill. Patient given prescription for azithromycin, prednisone, Tessalon Perles, albuterol regular. Advised patient Please take medication as prescribed. Please increase your fluid intake over the next several days. May take Tylenol as needed for fever or body aches. Follow-up with a primary care doctor for reexamination. Return to emergency room immediately for any new or worsening symptoms including but not limited to difficulty breathing, shortness of breath, severe chest pain, unable to tolerate by mouth intake, etc. Please self quarantine for 10 days from the onset of your symptoms. Please do not go out in public. If you are around others at home please wear a mask. If you need to cough or sneeze please do so in a napkin and immediately throw it away and immediately wash your hands. Wash your hands frequently. Wipe everything down. Recommend for you to get COVID-19 testing, may have this done at primary care doctor, health department, [facility], etc. Critical care attestation.: If time is entered above; I have spent that time in minutes in the direct care of this critically ill patient, excluding procedure time. ED Disposition Clinical Impression: Hypertensive urgency, Non compliance w medication regimen Acute bronchitis Qualifiers: Bronchitis organism: unspecified organism Qualified Code(s): J20.9 - Acute bronchitis, unspecified Disposition: DC-01 TO HOME OR SELFCARE Is pt being admited?: No Does the pt Need Aspirin: No Condition: Stable Instructions: Acute Bronchitis, Adult, [id number], Acute Bronchitis (ED) Additional Instructions: Please take medication as prescribed. Please increase your fluid intake over the next several days. May take Tylenol as needed for fever or body aches. Follow-up with a primary care doctor for reexamination. Return to emergency room immediately for any new or worsening symptoms including but not limited to difficulty breathing, shortness of breath, severe chest pain, unable to tolerate by mouth intake, etc. Please self quarantine for 10 days from the onset of your symptoms. Please do not go out in public. If you are around others at home please wear a mask. If you need to cough or sneeze please do so in a napkin and immediately throw it away and immediately wash your hands. Wash your hands frequently. Wipe everything down. Recommend for you to get COVID-19 testing, may have this done at primary care doctor, health department, [facility], etc. Prescriptions: Amitriptyline [Elavil] 10 mg PO QHS #20 tab Isosorbide Dinitrate [Isordil Titradose] 5 mg PO BID #60 tablet Prednisone [predniSONE 10 mg (6-Day Pack, 21 Tabs)] 10 mg PO .TAPER #1 tab.ds.pk Albuterol Sulfate [Proventil Hfa] 1 inhalation IH TID PRN #1 hfa.aer.ad PRN Reason: shortness of breath/wheezing Benzonatate [Tessalon Perles] 100 mg PO Q8HR PRN #14 capsule PRN Reason: cough Azithromycin [Zithromax TAB] 250 mg PO QDAY 5 Days #6 tablet Referrals: DION SNEED MD [Primary Care Provider] - 2-3 Days BARRETT ROJAS MD [Staff Physician] - 2-3 Days [facility] [Provider Group] - 2-3 Days [facility] [Outside] - 2-3 Days [facility], [LAB/CONTRACT] - 2-3 Days Time of Disposition: 00:36 Print Language: CHINESE
[2021-04-06 01:31] VITALS: BP 125/62
[2021-04-06] MEDS ORDERED: MAGNESIUM OXIDE 400 MG TAB PO ONE (22:15)
--- NOTE | 2021-04-07 11:52 | Electrocardiograph Report ---
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
== END 2021-04-06 01:30 | disposition home or self-care (01) ==
LOC: ED 19:04
DX: J20.9 Acute bronchitis, unspecified (principal); I16.0 Hypertensive urgency; I10 Essential (primary) hypertension; Z88.8 Allergy status to other drugs, medicaments and biological substances; Z79.899 Other long term (current) drug therapy; Z98.890 Other specified postprocedural states; Z88.2 Allergy status to sulfonamides; Z91.14 Patient's other noncompliance with medication regimen
CPT/HCPCS: 36415; 71046; 80053; 82140; 83735; 85025; 87040; 93005; 96372; 99284; J1100

== ENCOUNTER 2021-05-16 07:47 | Emergency (ER) | payer MEDICAID ==
[2021-05-16 07:54] VITALS: BP 173/115
[2021-05-16] MEDS ORDERED: diphenhydrAMINE 25 MG/10 ML ORAL LIQUID PO ONE (08:49)
[2021-05-16] MEDS ORDERED: methylPREDNISolone Sod Succinate 125 MG/2 ML INJ IM ONE (08:49)
[2021-05-16] MEDS ORDERED: oxyCODONE /ACETAMINOPHEN 5-325MG TAB PO PRN (08:49)
--- NOTE | 2021-05-16 08:50 | Emergency Department Report ---
Upper Extremity - HPI Chief Complaint: Extremity Problem,Nontraumatic Stated Complaint: RIGHT THUMB PAIN. Time Seen by Provider: 05/16/21 08:47 Upper Extremity: Right Thumb Occurred When: >5 Days (Several months) Severity: severe Symptoms: Yes Pain with Movement, Yes Swelling, No Limited Range of Movement, No Numbness, No Weakness Other History: 56-year-old -[place] Citizen female presents to the emergency room for several month history of right thumb pain and swelling. Patient states that she take ibuprofen Tylenol with no relief. Patient reports it is constant pain. Patient denies any injury no falls. Patient does admit to eating crabs and shrimp. She currently does not have a primary care provider. Has a history of hypertension. ED Review of Systems ROS: Stated complaint: RIGHT THUMB PAIN. Other details as noted in HPI Comment: All other systems reviewed and negative ED Past Medical Hx - Past Medical History Previous Medical History?: Yes Hx Hypertension: Yes Hx Congestive Heart Failure: No Hx Diabetes: No Hx Asthma: No Hx COPD: No Additional medical history: Crohn's disease - Surgical History Past Surgical History?: Yes Additional Surgical History: Tonsils, CSection, Knee - Social History Smoking Status: Never Smoker Substance Use Type: None - Medications Home Medications: Home Medications Medication Instructions Recorded Confirmed Last Taken Type Acetaminophen [Acetaminophen TAB] 650 mg PO Q4H PRN tablet 09/22/20 10/08/20 Unknown Rx Antacid [Alum-Mag Hydrox-Simeth 30 ml PO Q4H PRN oral.liqd 09/22/20 10/08/20 Unknown Rx [id number]] Docusate Sodium [Colace CAP] 100 mg PO BID capsule 09/22/20 10/08/20 Unknown Rx Sennosides Tab [Senokot] 8.6 mg PO Q12HR tablet 09/22/20 10/08/20 Unknown Rx predniSONE 10 mg PO QDAY #40 tab 09/22/20 10/08/20 Unknown Rx Acetaminophen [Acetaminophen TAB] 650 mg PO Q4H PRN tablet 10/11/20 Unknown Rx Amitriptyline [Elavil] 25 mg PO QHS #30 tab 10/11/20 Unknown Rx dexAMETHasone [Decadron] 6 mg PO DAILY #7 tablet 10/11/20 Unknown Rx guaiFENesin/CODEINE [Robitussin AC] 10 ml PO QID PRN oral.liqd 10/11/20 Unknown Rx metFORMIN [Glucophage] 500 mg PO QDAY #30 tab 10/11/20 Unknown Rx Albuterol Sulfate [Proventil Hfa] 6.7 gm IH Q4HR #1 hfa.aer.ad 02/16/21 Unknown Rx Amoxicillin/Potassium Clav 1 each PO BID #20 tablet 02/16/21 Unknown Rx [Augmentin 875-125 Tablet] Benzonatate [Tessalon Perles] 100 mg PO Q8HR #21 capsule 02/16/21 Unknown Rx Fluticasone [Flonase] 1 spray NS QDAY #1 bottle 02/16/21 Unknown Rx Loratadine [Claritin] 10 mg PO DAILY #30 tablet 02/16/21 Unknown Rx Albuterol Sulfate [Proventil Hfa] 1 inhalation IH TID PRN #1 04/06/21 Unknown Rx hfa.aer.ad Amitriptyline [Elavil] 10 mg PO QHS #20 tab 04/06/21 Unknown Rx Azithromycin [Zithromax TAB] 250 mg PO QDAY 5 Days #6 tablet 04/06/21 Unknown Rx Benzonatate [Tessalon Perles] 100 mg PO Q8HR PRN #14 capsule 04/06/21 Unknown Rx Isosorbide Dinitrate [Isordil 5 mg PO BID #60 tablet 04/06/21 Unknown Rx Titradose] Prednisone [predniSONE 10 mg 10 mg PO .TAPER #1 tab.ds.pk 04/06/21 Unknown Rx (6-Day Pack, 21 Tabs)] traMADoL [Ultram 50 MG tab] 50 mg PO Q6HR PRN #12 tablet 05/16/21 Unknown Rx Upper Extremity Exam - Exam General: Vital signs noted. No distress. Alert and acting appropriately. Head and Torso: No HEENT Abnormality, No Neck Tenderness, No Chest/Lungs Abnormality, No Abdominal Tenderness, No Back Tenderness Shoulder Exam: Yes Normal Range of Motion in Shoulder, No Shoulder Tenderness, No Clavicle Tenderness, No Shoulder Deformity, No AC Joint Tenderness Arm Exam: No Arm/Humerus Tenderness, No Arm Deformity Elbow: Yes Normal Range of Motion in Elbow, No Elbow Tenderness, No Elbow Deformity Forearm: No Forearm Tenderness, No Forearm Deformity, No Pain with Pronation, No Pain with Supination Wrist: Yes Normal ROM in Wrist, No Wrist Tenderness, No Wrist Deformity, No Snuffbox Tenderness, No Pain with Axial Thumb Compression Hand: Yes Digit Tenderness (Right thumb PIP joint), Yes Normal ROM in Digit(s), Yes Digit(s) Deformity (Right thumb PIP joint is enlarged), No Hand Tenderness, No Hand Deformity, No Tendon Dysfunction CMS Exam: No Broken Skin, No Normal Distal Pulses, No Normal Capillary Refill, No Normal Distal Sensation ED Course Vital Signs 05/16/21 07:51 Temperature 98.3 F Pulse Rate 99 H Respiratory 17 Rate Blood Pressure 173/115 [Right] O2 Sat by Pulse 97 Oximetry ED Medical Decision Making - Medical Decision Making 56-year-old -[place] Citizen female presents to the emergency room for several month history of right thumb pain and swelling. Patient states that she take ibuprofen Tylenol with no relief. Patient reports it is constant pain. Patient denies any injury no falls. Patient does admit to eating crabs and shrimp. She currently does not have a primary care provider. Has a history of hypertension. Colchicine 1.2 mg, Percocet 5/325 Benadryl and Solu-Medrol for presumptive gout. Critical care attestation.: If time is entered above; I have spent that time in minutes in the direct care of this critically ill patient, excluding procedure time. ED Disposition Clinical Impression: Gout, arthritis Disposition: DC-01 TO HOME OR SELFCARE Is pt being admited?: No Does the pt Need Aspirin: No Condition: Stable Instructions: Low-Purine Eating Plan, Calcium Pyrophosphate Deposition Additional Instructions: Please take medication as prescribed. Increase your water intake by 2 to 3 L daily follow a low purine diet information is given to you in your discharge. Follow-up with a primary care provider. Prescriptions: traMADoL [Ultram 50 MG tab] 50 mg PO Q6HR PRN #12 tablet PRN Reason: Pain Referrals: [facility] [Provider Group] - 3-5 Days Forms: Work/School Release Form(ED)
[2021-05-16] MEDS ORDERED: COLCHICINE 0.6 MG TAB PO SCH (09:30)
== END 2021-05-16 11:15 | disposition home or self-care (01) ==
LOC: ED 07:47
DX: M10.9 Gout, unspecified (principal); M19.90 Unspecified osteoarthritis, unspecified site; I10 Essential (primary) hypertension; Z98.890 Other specified postprocedural states; Z79.899 Other long term (current) drug therapy; Z88.5 Allergy status to narcotic agent; Z88.2 Allergy status to sulfonamides; Z88.8 Allergy status to other drugs, medicaments and biological substances
CPT/HCPCS: 82962; 96372; 99283; J2930; Q0163

== ENCOUNTER 2021-08-17 08:31 | Emergency (ER) | payer MEDICAID, OTHER ==
[2021-08-17] MEDS ORDERED: traMADol 50 MG TAB PO ONE (08:43)
--- NOTE | 2021-08-17 09:48 | Emergency Department Report ---
ED Lower Extremity HPI - General Chief Complaint: Extremity Injury, Lower Stated Complaint: L TOE INJURY Time Seen by Provider: 08/17/21 08:43 Source: patient Mode of arrival: Ambulatory Limitations: No Limitations - History of Present Illness Initial Comments: This is a 56-year-old female nontoxic, well nourished in appearance, no acute signs of distress presents to the ED with c/o of left fifth great toe pain and swelling x1 day. Patient stated that she hit her toe against the wall yesterday. Patient denies any other injuries or trauma. Patient denies any numbness, tingling, fever, chills, nausea, vomiting, chest pain, shortness of breath, headache, stiff neck. Patient denies any joint swelling or joint redness. Patient denies decreased range of motion. Patient stated has decreased gait due to pain. Patient stated allergies to sulfa, Toradol, hydromorphone. Patient otherwise denies any allergies to tramadol. MD Complaint: foot injury -: Last night Injury: Toes: Left Place: home Severity: mild Severity scale (0 -10): 8 Improves With: immobilization Worsens With: weight bearing, movement, palpation Context: direct blow Associated Symptoms: able to partially bear weight. denies: snap/pop sensation, swelling, numbness, tingling, unable to bear weight - Related Data Previous Rx's Medication Instructions Recorded Last Taken Type Acetaminophen [Acetaminophen TAB] 650 mg PO Q4H PRN tablet 09/22/20 Unknown Rx Antacid [Alum-Mag Hydrox-Simeth 30 ml PO Q4H PRN oral.liqd 09/22/20 Unknown Rx [id number]/5Ml] Docusate Sodium [Colace CAP] 100 mg PO BID capsule 09/22/20 Unknown Rx Sennosides Tab [Senokot] 8.6 mg PO Q12HR tablet 09/22/20 Unknown Rx predniSONE 10 mg PO QDAY #40 tab 09/22/20 Unknown Rx Acetaminophen [Acetaminophen TAB] 650 mg PO Q4H PRN tablet 10/11/20 Unknown Rx Amitriptyline [Elavil] 25 mg PO QHS #30 tab 10/11/20 Unknown Rx dexAMETHasone [Decadron] 6 mg PO DAILY #7 tablet 10/11/20 Unknown Rx guaiFENesin/CODEINE [Robitussin AC] 10 ml PO QID PRN oral.liqd 10/11/20 Unknown Rx metFORMIN [Glucophage] 500 mg PO QDAY #30 tab 10/11/20 Unknown Rx Albuterol Sulfate [Proventil Hfa] 6.7 gm IH Q4HR #1 hfa.aer.ad 02/16/21 Unknown Rx Amoxicillin/Potassium Clav 1 each PO BID #20 tablet 02/16/21 Unknown Rx [Augmentin 875-125 Tablet] Benzonatate [Tessalon Perles] 100 mg PO Q8HR #21 capsule 02/16/21 Unknown Rx Fluticasone [Flonase] 1 spray NS QDAY #1 bottle 02/16/21 Unknown Rx Loratadine [Claritin] 10 mg PO DAILY #30 tablet 02/16/21 Unknown Rx Albuterol Sulfate [Proventil Hfa] 1 inhalation IH TID PRN #1 04/06/21 Unknown Rx hfa.aer.ad Amitriptyline [Elavil] 10 mg PO QHS #20 tab 04/06/21 Unknown Rx Azithromycin [Zithromax TAB] 250 mg PO QDAY 5 Days #6 tablet 04/06/21 Unknown Rx Benzonatate [Tessalon Perles] 100 mg PO Q8HR PRN #14 capsule 04/06/21 Unknown Rx Isosorbide Dinitrate [Isordil 5 mg PO BID #60 tablet 04/06/21 Unknown Rx Titradose] Prednisone [predniSONE 10 mg 10 mg PO .TAPER #1 tab.ds.pk 04/06/21 Unknown Rx (6-Day Pack, 21 Tabs)] traMADoL [Ultram 50 MG tab] 50 mg PO Q6HR PRN #12 tablet 05/16/21 Unknown Rx Naproxen [EC-Naprosyn] 500 mg PO Q12H PRN #12 tablet. 08/17/21 Unknown Rx Allergies Allergy/AdvReac Type Severity Reaction Status Date / Time hydromorphone [From Dilaudid] Allergy Hives Verified 08/17/21 08:39 ketorolac [From Toradol] Allergy Hives Verified 08/17/21 08:39 Sulfa (Sulfonamide Allergy Hives Verified 08/17/21 08:39 Antibiotics) ED Review of Systems ROS: Stated complaint: L TOE INJURY Other details as noted in HPI Comment: All other systems reviewed and negative Constitutional: denies: chills, fever Eyes: denies: eye pain, eye discharge, vision change ENT: denies: ear pain, throat pain Respiratory: denies: cough, shortness of breath, wheezing Cardiovascular: denies: chest pain, palpitations Endocrine: no symptoms reported Gastrointestinal: denies: abdominal pain, nausea, diarrhea Genitourinary: denies: urgency, dysuria, discharge Musculoskeletal: denies: back pain, joint swelling, arthralgia Skin: denies: rash, lesions Neurological: denies: headache, weakness, paresthesias Psychiatric: denies: anxiety, depression Hematological/Lymphatic: denies: easy bleeding, easy bruising ED Past Medical Hx - Past Medical History Hx Hypertension: Yes Hx Congestive Heart Failure: No Hx Diabetes: No Hx Asthma: No Hx COPD: No Additional medical history: Crohn's disease - Surgical History Additional Surgical History: Tonsils, CSection, Knee - Social History Smoking Status: Former Smoker Substance Use Type: Alcohol - Medications Home Medications: Home Medications Medication Instructions Recorded Confirmed Last Taken Type Acetaminophen [Acetaminophen TAB] 650 mg PO Q4H PRN tablet 09/22/20 10/08/20 Unknown Rx Antacid [Alum-Mag Hydrox-Simeth 30 ml PO Q4H PRN oral.liqd 09/22/20 10/08/20 Unknown Rx [id number]/5Ml] Docusate Sodium [Colace CAP] 100 mg PO BID capsule 09/22/20 10/08/20 Unknown Rx Sennosides Tab [Senokot] 8.6 mg PO Q12HR tablet 09/22/20 10/08/20 Unknown Rx predniSONE 10 mg PO QDAY #40 tab 09/22/20 10/08/20 Unknown Rx Acetaminophen [Acetaminophen TAB] 650 mg PO Q4H PRN tablet 10/11/20 Unknown Rx Amitriptyline [Elavil] 25 mg PO QHS #30 tab 10/11/20 Unknown Rx dexAMETHasone [Decadron] 6 mg PO DAILY #7 tablet 10/11/20 Unknown Rx guaiFENesin/CODEINE [Robitussin AC] 10 ml PO QID PRN oral.liqd 10/11/20 Unknown Rx metFORMIN [Glucophage] 500 mg PO QDAY #30 tab 10/11/20 Unknown Rx Albuterol Sulfate [Proventil Hfa] 6.7 gm IH Q4HR #1 hfa.aer.ad 02/16/21 Unknown Rx Amoxicillin/Potassium Clav 1 each PO BID #20 tablet 02/16/21 Unknown Rx [Augmentin 875-125 Tablet] Benzonatate [Tessalon Perles] 100 mg PO Q8HR #21 capsule 02/16/21 Unknown Rx Fluticasone [Flonase] 1 spray NS QDAY #1 bottle 02/16/21 Unknown Rx Loratadine [Claritin] 10 mg PO DAILY #30 tablet 02/16/21 Unknown Rx Albuterol Sulfate [Proventil Hfa] 1 inhalation IH TID PRN #1 04/06/21 Unknown Rx hfa.aer.ad Amitriptyline [Elavil] 10 mg PO QHS #20 tab 04/06/21 Unknown Rx Azithromycin [Zithromax TAB] 250 mg PO QDAY 5 Days #6 tablet 04/06/21 Unknown Rx Benzonatate [Tessalon Perles] 100 mg PO Q8HR PRN #14 capsule 04/06/21 Unknown Rx Isosorbide Dinitrate [Isordil 5 mg PO BID #60 tablet 04/06/21 Unknown Rx Titradose] Prednisone [predniSONE 10 mg 10 mg PO .TAPER #1 tab.ds.pk 04/06/21 Unknown Rx (6-Day Pack, 21 Tabs)] traMADoL [Ultram 50 MG tab] 50 mg PO Q6HR PRN #12 tablet 05/16/21 Unknown Rx Naproxen [EC-Naprosyn] 500 mg PO Q12H PRN #12 tablet. 08/17/21 Unknown Rx ED Physical Exam - General Limitations: No Limitations General appearance: alert, in no apparent distress - Head Head exam: Present: atraumatic, normocephalic - Eye Eye exam: Present: normal appearance - Neck Neck exam: Present: normal inspection, full ROM. Absent: lymphadenopathy - Respiratory Respiratory exam: Absent: respiratory distress - Cardiovascular Cardiovascular Exam: Present: regular rate - Extremities Exam Extremities exam: Present: normal inspection, full ROM, tenderness, normal capillary refill. Absent: joint swelling - Expanded Lower Extremity Exam Left Hip exam: Present: normal inspection, full ROM. Absent: tenderness, swelling Upper Leg exam: Present: normal inspection, full ROM. Absent: tenderness, swelling Knee exam: Present: normal inspection, full ROM. Absent: tenderness, swelling Lower Leg exam: Present: normal inspection, full ROM. Absent: tenderness, swelling Ankle exam: Present: normal inspection, full ROM. Absent: tenderness, swelling, abrasion, laceration, ecchymosis, deformity, dislocation, erythema, anterior draw sign Foot/Toe exam: Present: normal inspection, full ROM, tenderness, ecchymosis. Absent: swelling, abrasion, laceration, deformity, crepidus, dislocation, erythema, amputation, puncture wound, foreign body, calcaneal tenderness, tenderness at base of 5th metatarsal, nail avulsion, subungual hematoma Neuro vascular tendon exam: Present: no vascular compromise Gait: Positive: observed and limited by pain 1 - pain here - Back Exam Back exam: Present: full ROM - Neurological Exam Neurological exam: Present: alert, oriented X3 - Psychiatric Psychiatric exam: Present: normal affect, normal mood - Skin Skin exam: Present: warm, dry, intact, normal color. Absent: rash ED Course Vital Signs 08/17/21 08:39 Temperature 98.4 F Pulse Rate 95 H Respiratory 18 Rate Blood Pressure 139/110 O2 Sat by Pulse 99 Oximetry - Reevaluation(s) Reevaluation #1: 08/17/21 09:48 Patient is speaking in full sentences with no signs of distress noted. ED Lower Extremity MDM - Radiology Data [facility] [address] [place] [address] XRay Report Signed Patient: LEÓN LLANES MR#: [id number] : 1965 Acct:[id number] Age/Sex: 56 / F ADM Date: 08/17/21 Loc: ED Attending Dr: Ordering Physician: DONOVAN LIND NP Date of Service: 08/17/21 Procedure(s): XR foot 3+V LT Accession Number(s): [id number] cc: DONOVAN LIND NP Fluoro Time In Minutes: XR foot 3+V LT INDICATION / CLINICAL INFORMATION: pain s/p direct injury. COMPARISON: None available. FINDINGS: There is medial and lateral cortical buckling of the fifth proximal phalanx. Normal alignment. Joint spaces are preserved. No destructive osseous lesion or suspicious periosteal reaction. Impression: 1. Nondisplaced fifth proximal phalangeal fracture. Signer Name: Ronaldo Walsh MD Signed: 08/17/2021 10:37 AM Workstation Name: [id number] Transcribed By: HAYDEE Dictated By: Ronaldo Walsh MD Electronically Authenticated By: Ronaldo Walsh MD Signed Date/Time: 08/17/21 1037 DD/ 1035 TD/TT: - Medical Decision Making This is a 56-year-old female that presents with left great fracture. Patient is stable and was examined by me. I referred patient to an orthopedic doctor for further evaluation. X-ray has been obtained and dictated by the radiologist. Patient is notified of the x-ray report with noted by the patient. Patient does have normal gait with some tenderness and no joint swelling. no joint redness or swelling. Not warm to touch. No signs of cellulites present. Patient received fourth and fifth toe ramirez taped and a Ortho postop shoe. Patient was instructed to RICE therapy. Patient received tramadol for pain and stated family member daughter will drive her home after discharge due to possible drowsiness. Patient is discharged with naproxen. At time of discharge, the patient does not seem toxic or ill in appearance. No acute signs of distress noted. Patient agrees to discharge treatment plan of care. No further question s noted by the patient. Critical care attestation.: If time is entered above; I have spent that time in minutes in the direct care of this critically ill patient, excluding procedure time. ED Disposition Clinical Impression: Fracture of fifth toe, left, closed Qualifiers: Encounter type: initial encounter Qualified Code(s): S92.502A - Displaced unspecified fracture of left lesser toe(s), initial encounter for closed fracture Disposition: 01 HOME / SELF CARE / HOMELESS Is pt being admited?: No Does the pt Need Aspirin: No Condition: Stable Instructions: RICE Therapy for Routine Care of Injuries, [id number], Toe Fracture, [id number] Additional Instructions: Follow-up with a orthopedic doctor in 3-5 days or if symptoms worsen and continue return to emergency room as soon as possible. No physical activity that extremity until cleared by orthopedic doctor Prescriptions: Naproxen [EC-Naprosyn] 500 mg PO Q12H PRN #12 tablet.dr PRDanika Reason: Pain , Severe (7-10) Referrals: PRIMARY CARE, [Referring] - 3-5 Days ROSEMARY MALONE MD [Staff Physician] - 3-5 Days Forms: Work/School Release Form(ED) Time of Disposition: 10:49
--- NOTE | 2021-08-17 10:41 | XRay Report ---
XR foot 3+V LT INDICATION / CLINICAL INFORMATION: pain s/p direct injury. COMPARISON: None available. FINDINGS: There is medial and lateral cortical buckling of the fifth proximal phalanx. Normal alignment. Join t spaces are preserved. No destructive osseous lesion or suspicious periosteal reaction. Impression: 1. Nondisplaced fifth proximal phalangeal fracture. Signer Name: Ronaldo Walsh MD Signed: 08/17/2021 10:37 AM Workstation Name: [id number]
[2021-08-17 11:41] VITALS: BP 140/78
== END 2021-08-17 11:39 | disposition home or self-care (01) ==
LOC: ED 08:31
DX: S92.502A Displaced unspecified fracture of left lesser toe(s), initial encounter for closed fracture (principal); I10 Essential (primary) hypertension; Z87.891 Personal history of nicotine dependence; Z88.5 Allergy status to narcotic agent; Z88.2 Allergy status to sulfonamides; Z88.8 Allergy status to other drugs, medicaments and biological substances; Z72.89 Other problems related to lifestyle; Z79.899 Other long term (current) drug therapy; W22.01XA Walked into wall, initial encounter; Y93.89 Activity, other specified; Y92.89 Other specified places as the place of occurrence of the external cause; Y99.8 Other external cause status
CPT/HCPCS: 99283

== ENCOUNTER 2021-10-11 08:23 | Emergency (ER) | payer SELFPAY ==
--- NOTE | 2021-10-11 09:27 | XRay Report ---
CHEST 2 VIEWS INDICATION: cough, tachycardia. COMPARISON: 04/05/2021 FINDINGS: Support devices: None. Heart: Within normal limits. Lungs/pleura: No acute air space or interstitial disease. No pneumothorax. Additional findings: None. IMPRESSION: No acute findings. No change since 04/05/2021. Signer Name: Benedict Chou Jr, MD Signed: 10/11/2021 9:22 AM Workstation Name: [id number]
[2021-10-11] MEDS ORDERED: ACETAMINOPHEN 325 MG TAB PO ONE (09:39)
[2021-10-11] MEDS ORDERED: SODIUM CHLORIDE 0.9% 1000 ML 1,000 ML IV ONE (09:40)
--- NOTE | 2021-10-11 09:43 | Emergency Department Report ---
ED General Adult HPI - General Chief complaint: Upper Respiratory Infection Stated complaint: COUGH WITH CHEST PAIN Time Seen by Provider: 10/11/21 08:56 Source: patient Mode of arrival: Ambulatory Limitations: No Limitations - History of Present Illness Initial comments: 56-year-old -Faroese female patient with history of anxiety and Crohn's disease presents with complaints of cough, chest pain, shortness of breath x4 days. She states she had a negative rapid COVID-19 test performed yesterday. She is not vaccinated for COVID-19. Patient also denies any immunosuppressive drugs and states she only takes amitriptyline for her anxiety. No loss of taste/smell, fever, chills, or abdominal pain per patient. She admits to some vomiting and minimal streaks of blood noted in the vomitus.. She also denies any history of DVT/PE, recent long travel/surgeries, leg pain/swelling, history of cancer, or hormone use. Patient states she has achiness in the chest that feels the same throughout her entire body and is generalized. No heart history or family heart history per patient. Chest pain occurs mainly with coughing per patient. No past heart history or family heart history per patient. Severity scale (0 -10): 0 - Related Data Previous Rx's Medication Instructions Recorded Last Taken Type Acetaminophen [Acetaminophen TAB] 650 mg PO Q4H PRN tablet 09/22/20 Unknown Rx Antacid [Alum-Mag Hydrox-Simeth 30 ml PO Q4H PRN oral.liqd 09/22/20 Unknown Rx [id number]] Docusate Sodium [Colace CAP] 100 mg PO BID capsule 09/22/20 Unknown Rx Sennosides Tab [Senokot] 8.6 mg PO Q12HR tablet 09/22/20 Unknown Rx predniSONE 10 mg PO QDAY #40 tab 09/22/20 Unknown Rx Acetaminophen [Acetaminophen TAB] 650 mg PO Q4H PRN tablet 10/11/20 Unknown Rx Amitriptyline [Elavil] 25 mg PO QHS #30 tab 10/11/20 Unknown Rx dexAMETHasone [Decadron] 6 mg PO DAILY #7 tablet 10/11/20 Unknown Rx guaiFENesin/CODEINE [Robitussin AC] 10 ml PO QID PRN oral.liqd 10/11/20 Unknown Rx metFORMIN [Glucophage] 500 mg PO QDAY #30 tab 10/11/20 Unknown Rx Albuterol Sulfate [Proventil Hfa] 6.7 gm IH Q4HR #1 hfa.aer.ad 02/16/21 Unknown Rx Amoxicillin/Potassium Clav 1 each PO BID #20 tablet 02/16/21 Unknown Rx [Augmentin 875-125 Tablet] Benzonatate [Tessalon Perles] 100 mg PO Q8HR #21 capsule 02/16/21 Unknown Rx Fluticasone [Flonase] 1 spray NS QDAY #1 bottle 02/16/21 Unknown Rx Loratadine [Claritin] 10 mg PO DAILY #30 tablet 02/16/21 Unknown Rx Albuterol Sulfate [Proventil Hfa] 1 inhalation IH TID PRN #1 04/06/21 Unknown Rx hfa.aer.ad Amitriptyline [Elavil] 10 mg PO QHS #20 tab 04/06/21 Unknown Rx Azithromycin [Zithromax TAB] 250 mg PO QDAY 5 Days #6 tablet 04/06/21 Unknown Rx Benzonatate [Tessalon Perles] 100 mg PO Q8HR PRN #14 capsule 04/06/21 Unknown Rx Isosorbide Dinitrate [Isordil 5 mg PO BID #60 tablet 04/06/21 Unknown Rx Titradose] Prednisone [predniSONE 10 mg 10 mg PO .TAPER #1 tab.ds.pk 04/06/21 Unknown Rx (6-Day Pack, 21 Tabs)] traMADoL [Ultram 50 MG tab] 50 mg PO Q6HR PRN #12 tablet 05/16/21 Unknown Rx Naproxen [EC-Naprosyn] 500 mg PO Q12H PRN #12 tablet.dr 08/17/21 Unknown Rx Benzonatate 200 mg PO TID PRN #30 capsule 10/11/21 Unknown Rx Ondansetron [Zofran Odt] 4 mg PO Q8HR PRN #12 tab.rapdis 10/11/21 Unknown Rx Prednisone [predniSONE 5 mg (6-Day 5 mg PO .TAPER #1 tab.ds.pk 10/11/21 Unknown Rx Pack, 21 Tabs)] Allergies Allergy/AdvReac Type Severity Reaction Status Date / Time hydromorphone [From Dilaudid] Allergy Hives Verified 08/17/21 08:39 ketorolac [From Toradol] Allergy Hives Verified 08/17/21 08:39 Sulfa (Sulfonamide Allergy Hives Verified 08/17/21 08:39 Antibiotics) ED Review of Systems ROS: Stated complaint: COUGH WITH CHEST PAIN Other details as noted in HPI Constitutional: malaise. denies: chills, diaphoresis, fever ENT: throat pain Respiratory: cough, shortness of breath Cardiovascular: chest pain Gastrointestinal: nausea, vomiting. denies: abdominal pain, diarrhea, constipation, hematemesis, melena Genitourinary: denies: urgency, dysuria, frequency, hematuria Skin: denies: lesions, change in color Neurological: denies: headache ED Past Medical Hx - Past Medical History Hx Hypertension: Yes Hx Congestive Heart Failure: No Hx Diabetes: No Hx Asthma: No Hx COPD: No Additional medical history: Crohn's disease - Surgical History Past Surgical History?: Yes Additional Surgical History: Tonsils, CSection, Knee - Social History Smoking Status: Former Smoker Substance Use Type: Alcohol - Medications Home Medications: Home Medications Medication Instructions Recorded Confirmed Last Taken Type Acetaminophen [Acetaminophen TAB] 650 mg PO Q4H PRN tablet 09/22/20 10/08/20 Unknown Rx Antacid [Alum-Mag Hydrox-Simeth 30 ml PO Q4H PRN oral.liqd 09/22/20 10/08/20 Unknown Rx [id number]] Docusate Sodium [Colace CAP] 100 mg PO BID capsule 09/22/20 10/08/20 Unknown Rx Sennosides Tab [Senokot] 8.6 mg PO Q12HR tablet 09/22/20 10/08/20 Unknown Rx predniSONE 10 mg PO QDAY #40 tab 09/22/20 10/08/20 Unknown Rx Acetaminophen [Acetaminophen TAB] 650 mg PO Q4H PRN tablet 10/11/20 Unknown Rx Amitriptyline [Elavil] 25 mg PO QHS #30 tab 10/11/20 Unknown Rx dexAMETHasone [Decadron] 6 mg PO DAILY #7 tablet 10/11/20 Unknown Rx guaiFENesin/CODEINE [Robitussin AC] 10 ml PO QID PRN oral.liqd 10/11/20 Unknown Rx metFORMIN [Glucophage] 500 mg PO QDAY #30 tab 10/11/20 Unknown Rx Albuterol Sulfate [Proventil Hfa] 6.7 gm IH Q4HR #1 hfa.aer.ad 02/16/21 Unknown Rx Amoxicillin/Potassium Clav 1 each PO BID #20 tablet 02/16/21 Unknown Rx [Augmentin 875-125 Tablet] Benzonatate [Tessalon Perles] 100 mg PO Q8HR #21 capsule 02/16/21 Unknown Rx Fluticasone [Flonase] 1 spray NS QDAY #1 bottle 02/16/21 Unknown Rx Loratadine [Claritin] 10 mg PO DAILY #30 tablet 02/16/21 Unknown Rx Albuterol Sulfate [Proventil Hfa] 1 inhalation IH TID PRN #1 04/06/21 Unknown Rx hfa.aer.ad Amitriptyline [Elavil] 10 mg PO QHS #20 tab 04/06/21 Unknown Rx Azithromycin [Zithromax TAB] 250 mg PO QDAY 5 Days #6 tablet 04/06/21 Unknown Rx Benzonatate [Tessalon Perles] 100 mg PO Q8HR PRN #14 capsule 04/06/21 Unknown Rx Isosorbide Dinitrate [Isordil 5 mg PO BID #60 tablet 04/06/21 Unknown Rx Titradose] Prednisone [predniSONE 10 mg 10 mg PO .TAPER #1 tab.ds.pk 04/06/21 Unknown Rx (6-Day Pack, 21 Tabs)] traMADoL [Ultram 50 MG tab] 50 mg PO Q6HR PRN #12 tablet 05/16/21 Unknown Rx Naproxen [EC-Naprosyn] 500 mg PO Q12H PRN #12 tablet.dr 08/17/21 Unknown Rx Benzonatate 200 mg PO TID PRN #30 capsule 10/11/21 Unknown Rx Ondansetron [Zofran Odt] 4 mg PO Q8HR PRN #12 tab.rapdis 10/11/21 Unknown Rx Prednisone [predniSONE 5 mg (6-Day 5 mg PO .TAPER #1 tab.ds.pk 10/11/21 Unknown Rx Pack, 21 Tabs)] ED Physical Exam - General Limitations: No Limitations General appearance: alert, in no apparent distress - Head Head exam: Present: atraumatic, normocephalic - Eye Eye exam: Present: normal appearance. Absent: scleral icterus - Neck Neck exam: Present: normal inspection - Respiratory Respiratory exam: Present: normal lung sounds bilaterally. Absent: respiratory distress - Cardiovascular Cardiovascular Exam: Present: normal rhythm, tachycardia - GI/Abdominal GI/Abdominal exam: Present: soft, normal bowel sounds. Absent: distended, tenderness, guarding, rebound, rigid - Extremities Exam Extremities exam: Present: full ROM. Absent: calf tenderness (No swelling or tenderness noted to legs bilaterally) - Neurological Exam Neurological exam: Present: alert, oriented X3 - Psychiatric Psychiatric exam: Present: normal affect, normal mood - Skin Skin exam: Present: warm, dry, intact, normal color. Absent: rash ED Course Vital Signs 10/11/21 10/11/21 10/11/21 08:26 10:02 13:39 Temperature 98.0 F Pulse Rate 111 H 100 H Respiratory 16 18 18 Rate Blood Pressure 156/98 147/92 [Right] O2 Sat by Pulse 99 Oximetry ED Medical Decision Making - Lab Data Result diagrams: 10/11/21 09:39 10/11/21 09:39 Lab Results 10/11/21 10/11/21 10/11/21 Range/Units 09:39 09:39 Unknown WBC 8.1 (4.5-11.0) K/mm3 RBC 4.88 (3.65-5.03) M/mm3 Hgb 13.2 (10.1-14.3) gm/dl Hct 42.7 (30.3-42.9) % MCV 87 (79-97) fl MCH 27 L (28-32) pg MCHC 31 (30-34) % RDW 18.5 H (13.2-15.2) % Plt Count 510 H (140-440) K/mm3 Lymph % (Auto) 25.0 (13.4-35.0) % [place] % (Auto) 8.4 H (0.0-7.3) % Eos % (Auto) 5.3 H (0.0-4.3) % Baso % (Auto) 1.3 (0.0-1.8) % Lymph # (Auto) 2.0 (1.2-5.4) K/mm3 [place] # (Auto) 0.7 (0.0-0.8) K/mm3 Eos # (Auto) 0.4 (0.0-0.4) K/mm3 Baso # (Auto) 0.1 (0.0-0.1) K/mm3 Seg Neutrophils % 60.0 (40.0-70.0) % Seg Neutrophils # 4.8 (1.8-7.7) K/mm3 Sodium 138 (137-145) mmol/L Potassium 4.7 (3.6-5.0) mmol/L Chloride 99.7 (98-107) mmol/L Carbon Dioxide 22 (22-30) mmol/L Anion Gap 21 mmol/L BUN 12 (7-17) mg/dL Creatinine 0.5 L (0.6-1.2) mg/dL Estimated GFR > 60 ml/min BUN/Creatinine Ratio 24 % Glucose 97 (65-100) mg/dL Calcium 9.1 (8.4-10.2) mg/dL Total Bilirubin 0.20 (0.1-1.2) mg/dL AST 17 (5-40) units/L ALT 8 (7-56) units/L Alkaline Phosphatase 139 H (35-129) units/L Troponin T < 0.010 (0.00-0.029) ng/mL NT-Pro-B Natriuret Pep 52.94 (0-900) pg/mL Total Protein 8.7 H (6.3-8.2) g/dL Albumin 4.3 (3.9-5) g/dL Albumin/Globulin Ratio 1.0 % Urine Color (Yellow) Urine Turbidity (Clear) Urine pH (5.0-7.0) Ur Specific [place] (1.003-1.030) Urine Protein (Negative) mg/dL Urine Glucose (UA) (Negative) mg/dL Urine Ketones (Negative) mg/dL Urine Blood (Negative) Urine Nitrite (Negative) Urine Bilirubin (Negative) Urine Urobilinogen (<2.0) mg/dL Ur Leukocyte Esterase (Negative) Urine WBC (Auto) (0.0-6.0) /HPF Urine RBC (Auto) (0.0-6.0) /HPF U Epithel Cells (Auto) (0-13.0) /HPF Urine Mucus /HPF Influenza A (Rapid) Negative (Negative) Influenza B (Rapid) Negative (Negative) 10/11/21 Range/Units Unknown WBC (4.5-11.0) K/mm3 RBC (3.65-5.03) M/mm3 Hgb (10.1-14.3) gm/dl Hct (30.3-42.9) % MCV (79-97) fl MCH (28-32) pg MCHC (30-34) % RDW (13.2-15.2) % Plt Count (140-440) K/mm3 Lymph % (Auto) (13.4-35.0) % [place] % (Auto) (0.0-7.3) % Eos % (Auto) (0.0-4.3) % Baso % (Auto) (0.0-1.8) % Lymph # (Auto) (1.2-5.4) K/mm3 [place] # (Auto) (0.0-0.8) K/mm3 Eos # (Auto) (0.0-0.4) K/mm3 Baso # (Auto) (0.0-0.1) K/mm3 Seg Neutrophils % (40.0-70.0) % Seg Neutrophils # (1.8-7.7) K/mm3 Sodium (137-145) mmol/L Potassium (3.6-5.0) mmol/L Chloride (98-107) mmol/L Carbon Dioxide (22-30) mmol/L Anion Gap mmol/L BUN (7-17) mg/dL Creatinine (0.6-1.2) mg/dL Estimated GFR ml/min BUN/Creatinine Ratio % Glucose (65-100) mg/dL Calcium (8.4-10.2) mg/dL Total Bilirubin (0.1-1.2) mg/dL AST (5-40) units/L ALT (7-56) units/L Alkaline Phosphatase (35-129) units/L Troponin T (0.00-0.029) ng/mL NT-Pro-B Natriuret Pep (0-900) pg/mL Total Protein (6.3-8.2) g/dL Albumin (3.9-5) g/dL Albumin/Globulin Ratio % Urine Color Yellow (Yellow) Urine Turbidity Clear (Clear) Urine pH 6.0 (5.0-7.0) Ur Specific [place] 1.017 (1.003-1.030) Urine Protein <15 mg/dl (Negative) mg/dL Urine Glucose (UA) Neg (Negative) mg/dL Urine Ketones Neg (Negative) mg/dL Urine Blood Neg (Negative) Urine Nitrite Neg (Negative) Urine Bilirubin Neg (Negative) Urine Urobilinogen 2.0 (<2.0) mg/dL Ur Leukocyte Esterase Neg (Negative) Urine WBC (Auto) < 1.0 (0.0-6.0) /HPF Urine RBC (Auto) 1.0 (0.0-6.0) /HPF U Epithel Cells (Auto) 1.0 (0-13.0) /HPF Urine Mucus Few /HPF Influenza A (Rapid) (Negative) Influenza B (Rapid) (Negative) - Radiology Data Radiology results: report reviewed CHEST 2 VIEWS INDICATION: cough, tachycardia. COMPARISON: 04/05/2021 FINDINGS: Support devices: None. Heart: Within normal limits. Lungs/pleura: No acute air space or interstitial disease. No pneumothorax. Additional findings: None. IMPRESSION: No acute findings. No change since 04/05/2021. - Medical Decision Making 56-year-old -Faroese female patient with history of anxiety and Crohn's disease presents with complaints of cough, chest pain, shortness of breath x4 days. She states she had a negative rapid COVID-19 test performed yesterday. She is not vaccinated for COVID-19. Patient also denies any immunosuppressive drugs and states she only takes amitriptyline for her anxiety. No loss of ta stephen/smell, fever, chills, or abdominal pain per patient. She admits to some vomiting and minimal streaks of blood noted in the vomitus. She also denies any history of DVT/PE, recent long travel/surgeries, leg pain/swelling, history of cancer, or hormone use. Patient states she has achiness in the chest that feels the same throughout her entire body and is generalized. No heart history or family heart history per patient. Chest pain occurs mainly with coughing per patient. No past heart history or family heart history per patient. Patient also denies hemoptysis Anion gap noted to be 21, otherwise no acute abnormalities are noted on CBC or CMP. UA is normal. Chest x-ray is normal. Patient given 1 L saline. Heart rate improved from 111 to 99. Rapid flu was also negative. Recommend PCR testing of Covid. Will treat for viral respiratory tract infection symptomatically for now. Recommend patient follows up with PCP in 3 to 5 days. She is well-appearing, her vitals are within normal limits, she is stable for discharge home. Discussed in detail signs and symptoms that should prompt immediate return to the ER, patient verbalizes understanding. Critical care attestation.: If time is entered above; I have spent that time in minutes in the direct care of this critically ill patient, excluding procedure time. ED Disposition Clinical Impression: Viral infection of lower respiratory system Disposition: HOME / SELF CARE / HOMELESS Is pt being admited?: No Condition: Stable Instructions: Viral Respiratory Infection, [id number] Prescriptions: Benzonatate 200 mg PO TID PRN #30 capsule PRN Reason: Cough Prednisone [predniSONE 5 mg (6-Day Pack, 21 Tabs)] 5 mg PO .TAPER #1 tab.ds.pk Ondansetron [Zofran Odt] 4 mg PO Q8HR PRN #12 tab.rapdis PRN Reason: Nausea Referrals: PRIMARY CARE, [Primary Care Provider] - 3-5 Days [facility] [Provider Group] - 3-5 Days Forms: Work/School Release Form(ED)
[2021-10-11 10:18] LABS: Basophils # (Auto) 0.1 K/mm3 (0.0-0.1); Basophils % (Auto) 1.3 % (0.0-1.8); Eosinophils # (Auto) 0.4 K/mm3 (0.0-0.4); Eosinophils % (Auto) 5.3 % (0.0-4.3); Hematocrit 42.7 % (30.3-42.9); Hemoglobin 13.2 gm/dl (10.1-14.3); Mean Corpuscular HGB Conc 31 % (30-34); Mean Corpuscular Volume 87 fl (79-97); Monocytes # (Auto) 0.7 K/mm3 (0.0-0.8); Monocytes % (Auto) 8.4 % (0.0-7.3); Platelet Count 510 K/mm3 (140-440); Red Blood Count 4.88 M/mm3 (3.65-5.03); Red Cell Distribution Width 18.5 % (13.2-15.2)
[2021-10-11 11:07] LABS: Alanine Aminotransferase 8 units/L (7-56); Albumin 4.3 g/dL (3.9-5); Blood Urea Nitrogen 12 mg/dL (7-17); Calcium 9.1 mg/dL (8.4-10.2); Hemolysis Index 79
[2021-10-11 11:08] LABS: BUN/Creatinine Ratio 24
[2021-10-11] MEDS ORDERED: predniSONE 20 MG TAB PO ONE (12:50)
[2021-10-11 13:02] LABS: Bilirubin,Urine NEG (Negative); Blood,Urine NEG (Negative); Color,Urine Yellow (Yellow); Mucus,Urine FEW /HPF; Protein,Urine <15 mg/dL mg/dL (Negative); WBC,Urine < 1.0 /HPF (0.0-6.0)
[2021-10-11 13:42] VITALS: BP 147/92
--- NOTE | 2021-10-12 08:40 | Electrocardiograph Report ---
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
== END 2021-10-11 13:42 | disposition home or self-care (01) ==
LOC: ED 08:23
DX: J06.9 Acute upper respiratory infection, unspecified (principal); I10 Essential (primary) hypertension; Z87.891 Personal history of nicotine dependence; F10.20 Alcohol dependence, uncomplicated; Z88.5 Allergy status to narcotic agent; Z88.6 Allergy status to analgesic agent; Z88.2 Allergy status to sulfonamides
CPT/HCPCS: 36415; 71046; 80053; 81001; 83880; 84484; 85025; 87400; 93005; 96360; 99284; J7030; Q0162

== ENCOUNTER 2022-01-23 20:04 | Inpatient (IN) | payer MEDICAID, OTHER ==
[2022-01-23] MEDS ORDERED: ASPIRIN 325 MG TAB PO ONE (20:54)
--- NOTE | 2022-01-23 20:59 | Emergency Department Report ---
ED Chest Pain HPI - General Chief Complaint: Chest Pain Stated Complaint: CHEST PAIN Time Seen by Provider: 01/23/22 20:39 Source: patient, EMS, old records reviewed Mode of arrival: Stretcher Limitations: No Limitations - History of Present Illness Initial Comments: 57-year-old female [facility] from [facility] with a past medical history type 2 diabetes, CAD, COPD (quit smoking 6 years ago, no home), elevated cholesterol, and family history of CAD (mother required bypass surgery) presents [facility] the hospital from [facility] complaining of left-sided chest pain x1 day. Pain described as a squeezing pressure that was intermittent this morning but now more constant . She complains of mild associate shortness of breath, nausea, and diaphoresis. He denies vomiting. Pain worse with palpation and movement. She reports left leg swelling 1 week ago that has improved. Denies previous history of PE/DVT. States last stress test was 3 years ago and was abnormal however, patient never followed up. Patient has since been admitted here for acute respiratory hypoxia but has not had any cardiac work-up on record - Related Data Previous Rx's Medication Instructions Recorded Last Taken Type Acetaminophen [Acetaminophen TAB] 650 mg PO Q4H PRN tablet 09/22/20 Unknown Rx Amitriptyline [Elavil] 25 mg PO QHS #30 tab 10/11/20 Unknown Rx metFORMIN [Glucophage] 500 mg PO QDAY #30 tab 10/11/20 Unknown Rx Loratadine [Claritin] 10 mg PO DAILY #30 tablet 02/16/21 Unknown Rx Isosorbide Dinitrate [Isordil 5 mg PO BID #60 tablet 04/06/21 Unknown Rx Titradose] Ondansetron [Zofran ODT TAB] 4 mg PO Q8HR PRN #12 tab.rapdis 10/11/21 Unknown Rx Albuterol Sulfate [Proventil Hfa] 1 inhalation IH TID PRN #1 11/16/21 Unknown Rx hfa.aer.ad Amoxicillin/Potassium Clav 1 each PO BID #14 tablet 11/16/21 Unknown Rx [Augmentin 875-125 Tablet] Fluticasone [Flonase] 1 spray NS QDAY #1 bottle 11/16/21 Unknown Rx Ipratropium/Albuterol Sulfate 1 ampul IH Q6HRT #120 ampul.neb 11/16/21 Unknown Rx [DUONEB *Not for PRN Use*] guaiFENesin [Robitussin] 200 mg PO Q6H PRN #10 tablet 11/16/21 Unknown Rx predniSONE 20 mg PO QDAY #10 tab 11/16/21 Unknown Rx Allergies Allergy/AdvReac Type Severity Reaction Status Date / Time hydromorphone [From Dilaudid] Allergy Hives Verified 08/17/21 08:39 ketorolac [From Toradol] Allergy Hives Verified 08/17/21 08:39 Sulfa (Sulfonamide Allergy Hives Verified 08/17/21 08:39 Antibiotics) Heart Score - HEART Score History: Moderately suspicious EKG: Normal Age: 45-65 Risk factors: > 3 risk factors or hx of atherosclerotic disease Troponin: < normal limit HEART Score: 4 - EKG Read Time Time EKG Completed: 21:04 EKG Read Time: 21:09 ED Review of Systems ROS: Stated complaint: CHEST PAIN Other details as noted in HPI ED Past Medical Hx - Past Medical History Previous Medical History?: Yes Hx Hypertension: Yes Hx Congestive Heart Failure: No Hx Diabetes: Yes Hx Asthma: No Hx COPD: No Additional medical history: Crohn's disease - Surgical History Past Surgical History?: Yes Additional Surgical History: Tonsils, CSection, Knee - Social History Smoking Status: Never Smoker Substance Use Type: None - Medications Home Medications: Home Medications Medication Instructions Recorded Confirmed Last Taken Type Acetaminophen [Acetaminophen TAB] 650 mg PO Q4H PRN tablet 09/22/20 11/14/21 Unknown Rx Amitriptyline [Elavil] 25 mg PO QHS #30 tab 10/11/20 11/14/21 Unknown Rx metFORMIN [Glucophage] 500 mg PO QDAY #30 tab 10/11/20 11/14/21 Unknown Rx Loratadine [Claritin] 10 mg PO DAILY #30 tablet 02/16/21 11/14/21 Unknown Rx Isosorbide Dinitrate [Isordil 5 mg PO BID #60 tablet 04/06/21 11/14/21 Unknown Rx Titradose] Ondansetron [Zofran ODT TAB] 4 mg PO Q8HR PRN #12 tab.rapdis 10/11/21 11/14/21 Unknown Rx Albuterol Sulfate [Proventil Hfa] 1 inhalation IH TID PRN #1 11/16/21 Unknown Rx hfa.aer.ad Amoxicillin/Potassium Clav 1 each PO BID #14 tablet 11/16/21 Unknown Rx [Augmentin 875-125 Tablet] Fluticasone [Flonase] 1 spray NS QDAY #1 bottle 11/16/21 Unknown Rx Ipratropium/Albuterol Sulfate 1 ampul IH Q6HRT #120 ampul.neb 11/16/21 Unknown Rx [DUONEB *Not for PRN Use*] guaiFENesin [Robitussin] 200 mg PO Q6H PRN #10 tablet 11/16/21 Unknown Rx predniSONE 20 mg PO QDAY #10 tab 11/16/21 Unknown Rx ED Physical Exam - General Limitations: No Limitations - Other Other exam information: General: No acute distress Head: Atraumatic Eyes: normal appearance ENT: Moist mucous membranes Neck: Normal appearance, no midline tenderness Chest: Clear to auscultation bilaterally, left-sided chest wall tender CV: Tachycardic regular rhythm Abdomen: Soft, normal bowel sounds, nontender, nondistended, no rebound or guarding Back: Normal inspection Extremity: Normal inspection, full range of motion, mild left calf tenderness without edema Neuro: Alert O x 3, no facial asymmetry, speech clear, no gross motor sensory deficit Psych: Appropriate behavior Skin: No rash ED Course Vital Signs 01/23/22 01/23/22 20:40 20:50 Temperature 8 F L 98.4 F Pulse Rate 104 H Respiratory 18 Rate Blood Pressure 137/101 O2 Sat by Pulse 99 Oximetry - EJ/Peripheral Line Neck L Time Out Performed: Yes Indications: nurses unable to establis Skin Cleansed in Sterile Fashion: No Size: 20 Dressing Placed: Tegaderm Patient Tolerated Procedure: well, other (2 attempts) JHONY score - Jhony Score Age > 65: (0) No Aspirin use within the Past 7 Days: (0) No 3 or more CAD Risk Factors: (0) No 2 or more Angina events in past 24 hrs: (0) No Known CAD with more than 50% Stenosis: (0) No Elevated Cardiac Markers: (0) No ST Deviation Greater than 0.5mm: (0) No JHONY Score: 0 ED Medical Decision Making - Lab Data Result diagrams: 01/23/22 21:14 01/23/22 21:14 Lab Results 01/23/22 01/23/22 01/23/22 Range/Units 21:14 21:14 21:14 WBC 10.6 (4.5-11.0) K/mm3 RBC 4.55 (3.65-5.03) M/mm3 Hgb 13.2 (10.1-14.3) gm/dl Hct 39.9 (30.3-42.9) % MCV 88 (79-97) fl MCH 29 (28-32) pg MCHC 33 (30-34) % RDW 17.3 H (13.2-15.2) % Plt Count 472 H (140-440) K/mm3 Lymph % (Auto) 25.3 (13.4-35.0) % [place] % (Auto) 6.7 (0.0-7.3) % Eos % (Auto) 1.8 (0.0-4.3) % Baso % (Auto) 1.1 (0.0-1.8) % Lymph # (Auto) 2.7 (1.2-5.4) K/mm3 [place] # (Auto) 0.7 (0.0-0.8) K/mm3 Eos # (Auto) 0.2 (0.0-0.4) K/mm3 Baso # (Auto) 0.1 (0.0-0.1) K/mm3 Seg Neutrophils % 65.1 (40.0-70.0) % Seg Neutrophils # 6.9 (1.8-7.7) K/mm3 PT 13.6 (12.2-14.9) Sec. INR 0.94 (0.87-1.13) APTT 28.3 (24.2-36.6) Sec. D-Dimer 278.05 H (0-234) ng/mlDDU Sodium 140 (137-145) mmol/L Potassium 4.3 (3.6-5.0) mmol/L Chloride 100.9 (98-107) mmol/L Carbon Dioxide 22 (22-30) mmol/L Anion Gap 21 mmol/L BUN 19 H (7-17) mg/dL Creatinine 0.6 (0.6-1.2) mg/dL Estimated GFR > 60 ml/min BUN/Creatinine Ratio 32 % Glucose 96 (65-100) mg/dL Calcium 9.3 (8.4-10.2) mg/dL Total Bilirubin 0.40 (0.1-1.2) mg/dL AST 18 (5-40) units/L ALT 13 (7-56) units/L Alkaline Phosphatase 125 (35-129) units/L Troponin T < 0.010 (0.00-0.029) ng/mL Total Protein 7.6 (6.3-8.2) g/dL Albumin 4.4 (3.9-5) g/dL Albumin/Globulin Ratio 1.4 % - EKG Data -: EKG Interpreted by Me EKG shows normal: sinus rhythm, ST-T waves (No STEMI) Rate: normal - Radiology Data Radiology results: report reviewed - Medical Decision Making 57-year female complaining of chest pain. There is reproducible component of chest pain, patient has several risk factors reported cardiac history. Aspirin, morphine, Zofran provided. Mild elevation in D-dimer noted. Bilateral lower extermity Dopplers ordered and CTA ordered of the chest. Case has been accepted by the hospitalist for admission Critical Care Time: No Critical care attestation.: If time is entered above; I have spent that time in minutes in the direct care of this critically ill patient, excluding procedure time. ED Disposition Clinical Impression: Chest pain, History of coronary artery disease Disposition: ADMITTED INPATIENT Is pt being admited?: Yes Condition: Stable Time of Disposition: 00:33
--- NOTE | 2022-01-23 21:28 | XRay Report ---
CHEST 1 VIEW 01/23/2022 9:08 PM INDICATION / CLINICAL INFORMATION: Chest Pain. COMPARISON: 11/13/2021 FINDINGS: SUPPORT DEVICES: None. HEART / MEDIASTINUM: No significant abnormality. LUNGS / PLEURA: No significant pulmonary or pleural abnormality. No pneumothorax. ADDITIONAL FINDINGS: No significant additional findings. IMPRESSION: 1. No acute findings. Signer Name: Beto Paniagua MD Signed: 01/23/2022 9:23 PM Workstation Name: [id number]
[2022-01-23 22:07] LABS: Alanine Aminotransferase 13 units/L (7-56); Albumin 4.4 g/dL (3.9-5); Blood Urea Nitrogen 19 mg/dL (7-17); Calcium 9.3 mg/dL (8.4-10.2); Hemolysis Index 21
[2022-01-23 22:11] LABS: Basophils # (Auto) 0.1 K/mm3 (0.0-0.1); Basophils % (Auto) 1.1 % (0.0-1.8); Eosinophils # (Auto) 0.2 K/mm3 (0.0-0.4); Eosinophils % (Auto) 1.8 % (0.0-4.3); Hematocrit 39.9 % (30.3-42.9); Hemoglobin 13.2 gm/dl (10.1-14.3); Lymphocytes # (Auto) 2.7 K/mm3 (1.2-5.4); Lymphocytes % (Auto) 25.3 % (13.4-35.0); Mean Corpuscular HGB Conc 33 % (30-34); Mean Corpuscular Volume 88 fl (79-97); Monocytes # (Auto) 0.7 K/mm3 (0.0-0.8); Monocytes % (Auto) 6.7 % (0.0-7.3); Platelet Count 472 K/mm3 (140-440); Red Blood Count 4.55 M/mm3 (3.65-5.03); Red Cell Distribution Width 17.3 % (13.2-15.2)
[2022-01-23 22:18] LABS: BUN/Creatinine Ratio 32
[2022-01-23 22:37] LABS: INR 0.94 (0.87-1.13)
[2022-01-23 22:38] LABS: Partial Thromboplastin Time 28.3 Sec. (24.2-36.6)
[2022-01-24] MEDS ORDERED: ONDANSETRON 4 MG/2 ML INJ IV ONE (00:31)
[2022-01-24] MEDS ORDERED: MORPHINE 4 MG/1 ML INJ IV ONE (00:31)
[2022-01-24] MEDS ORDERED: diphenhydrAMINE 50 MG/ML VIAL IV ONE (00:58)
--- NOTE | 2022-01-24 01:20 | Vascular Lab Report ---
DUPLEX DOPPLER LOWER EXTREMITY VEINS, BILATERAL INDICATION / CLINICAL INFORMATION: left leg pain, elevated ddimer. TECHNIQUE: Duplex doppler imaging was performed through the veins of both lower extremities using venous manuela curry and other maneuvers. COMPARISON: None available. FINDINGS: RIGHT COMMON FEMORAL VEIN: Negative. RIGHT FEMORAL VEIN: Negative. RIGHT POPLITEAL VEIN: Negative. RIGHT CALF VEINS: Negative. LEFT COMMON FEMORAL VEIN: Negative. LEFT FEMORAL VEIN: Negative. LEFT POPLITEAL VEIN: Negative. LEFT CALF VEINS: Negative. ADDITIONAL FINDINGS: None. IMPRESSION: 1. No sonographic evidence for DVT in either lower extremity. Signer Name: Adam Aguilar MD Signed: 01/24/2022 1:16 AM Workstation Name: [id number]
[2022-01-24] MEDS ORDERED: MAGNESIUM HYDROXIDE (MOM) ORAL LIQD UDC PO PRN (01:21)
[2022-01-24] MEDS ORDERED: ACETAMINOPHEN 325 MG TAB PO PRN ×2 (01:21)
[2022-01-24] MEDS ORDERED: MORPHINE 4 MG/1 ML INJ IV PRN ×2 (01:21)
[2022-01-24] MEDS ORDERED: traMADol 50 MG TAB PO PRN (01:21)
[2022-01-24] MEDS ORDERED: MORPHINE 2 MG/1 ML INJ IV PRN (01:21)
[2022-01-24] MEDS ORDERED: DEXTROSE 50% IN WATER (25GM) 50 ML SYRINGE IV PRN (01:21)
[2022-01-24] MEDS ORDERED: NITROGLYCERIN 0.4 MG TAB SUBL SL PRN (01:21)
[2022-01-24] MEDS ORDERED: ONDANSETRON 4 MG/2 ML INJ IV PRN (01:21)
[2022-01-24] MEDS ORDERED: DEXTROSE 10% *Hypoglycemia IV PRN (01:35)
--- NOTE | 2022-01-24 01:36 | History and Physical Report ---
History of Present Illness Date of examination: 01/24/22 Date of admission: 01/24/2022 Chief complaint: Chest Pain History of present illness: 57-year-old -[place] female with known history of diabetes mellitus, COPD, coronary artery disease ,hyperlipidemia and also with known family history of coronary artery disease in mother requiring coronary bypass surgery presents to the emergency room today complaining of chest pain. Patient is currently incarcerated. Chest pain is said to be left-sided and has been ongoing for the past 24 hours. Pain has been intermittent and squeezing in nature. However it has become more constant. She has had associated shortness of breath, nausea, headache and diaphoresis. She denies any vomiting, no fever or chills, no abdominal pain, no hematuria or dysuria. Patient states that she had stress test about 3 years ago which was said to be abnormal but she has been lost to follow-up. Patient denies any sick contacts and no recent travel. Denies any contact with anyone with COVID-19. She admits that she quit tobacco use about 6 years ago. Work-up in the emergency room today, chest x-ray, EKG and other labs were within normal limits. Patient is being admitted for chest pain evaluation. Past History Past Medical History: CAD, COPD, diabetes, hypertension, hyperlipidemia, other (Crohn's Disease) Past Surgical History: , Other (Tonsillectomy,Knee surgery) Social history: smoking (Former Smoker) Family history: no significant family history Medications and Allergies Allergies Allergy/AdvReac Type Severity Reaction Status Date / Time hydromorphone [From Dilaudid] Allergy Hives Verified 08/17/21 08:39 ketorolac [From Toradol] Allergy Hives Verified 08/17/21 08:39 Sulfa (Sulfonamide Allergy Hives Verified 08/17/21 08:39 Antibiotics) Home Medications Medication Instructions Recorded Confirmed Last Taken Type Acetaminophen [Acetaminophen TAB] 650 mg PO Q4H PRN tablet 09/22/20 01/24/22 Unknown Rx Amitriptyline [Elavil] 25 mg PO QHS #30 tab 10/11/20 01/24/22 Unknown Rx metFORMIN [Glucophage] 500 mg PO QDAY #30 tab 10/11/20 01/24/22 Unknown Rx Loratadine [Claritin] 10 mg PO DAILY #30 tablet 02/16/21 01/24/22 Unknown Rx Isosorbide Dinitrate [Isordil 5 mg PO BID #60 tablet 04/06/21 01/24/22 Unknown Rx Titradose] Albuterol Sulfate [Proventil Hfa] 1 inhalation IH TID PRN #1 11/16/21 01/24/22 Unknown Rx [email or web address] Fluticasone [Flonase] 1 spray NS QDAY #1 bottle 11/16/21 01/24/22 Unknown Rx Ipratropium/Albuterol Sulfate 1 ampul IH Q6HRT #120 ampul.neb 11/16/21 01/24/22 Unknown Rx [DUONEB *Not for PRN Use*] predniSONE 20 mg PO QDAY #10 tab 11/16/21 01/24/22 Unknown Rx Review of Systems Constitutional: no fever, no chills Ears, nose, mouth and throat: no nasal congestion, no sore throat Cardiovascular: chest pain, no palpitations Respiratory: no cough, no shortness of breath Gastrointestinal: no abdominal pain, no nausea, no vomiting, no diarrhea Genitourinary Female: no pelvic pain, no flank pain, no dysuria, no hematuria Musculoskeletal: no neck pain, no low back pain Integumentary: no rash, no pruritis Neurological: no headaches, no confusion Psychiatric: no anxiety, no depression Endocrine: no polyphagia, no polydipsia, no polyuria, no nocturia Exam - Constitutional Vitals: Temp Pulse Resp BP Pulse Ox 98.4 F 104 H 18 137/101 99 01/23/22 20:50 01/23/22 20:40 01/23/22 20:40 01/23/22 20:40 01/23/22 20:40 General appearance: Present: no acute distress, well-nourished - EENT Eyes: Present: PERRL, EOM intact. Absent: scleral icterus ENT: hearing intact, clear oral mucosa, dentition normal - Neck Neck: Present: supple, normal ROM - Respiratory Respiratory effort: normal Respiratory: bilateral: CTA - Cardiovascular Rhythm: regular Heart Sounds: Present: S1 & S2. Absent: gallop, systolic murmur, diastolic murmur, rub, click - Extremities Extremities: no ischemia, pulses intact, pulses symmetrical, No edema, normal temperature, normal color, Full ROM Peripheral Pulses: within normal limits - Abdominal General gastrointestinal: Present: soft, non-tender, non-distended, normal bowel sounds. Absent: mass - Integumentary Integumentary: Present: clear, warm, dry, normal turgor. Absent: rash - Musculoskeletal Musculoskeletal: strength equal bilaterally - Psychiatric Psychiatric: appropriate mood/affect, intact judgment & insight, memory intact, cooperative - Neurologic Neurologic: CNII-XII intact, no focal deficits, moves all extremities HEART Score - HEART Score History: Moderately suspicious EKG: Normal Age: 45-65 Risk factors: > 3 risk factors or hx of atherosclerotic disease Troponin: Troponin T < 0.010 ng/mL (0.00-0.029) 01/23/22 23:57 Troponin: < normal limit HEART Score: 4 Results - Labs CBC & Chem 7: 01/23/22 21:14 01/23/22 21:14 Labs: Abnormal lab results 01/23/22 01/23/22 01/23/22 Range/Units 21:14 21:14 21:14 RDW 17.3 H (13.2-15.2) % Plt Count 472 H (140-440) K/mm3 D-Dimer 278.05 H (0-234) ng/mlDDU BUN 19 H (7-17) mg/dL Assessment and Plan - Patient Problems (1) Chest pain Current Visit: Yes Status: Acute Plan to address problem: Patient admitted and placed on telemetry. We will check serial cardiac enzymes. Will monitor EKG closely. Patient will be scheduled for stress test. Consult placed to cardiology for evaluation. (2) Diabetes mellitus Current Visit: No Status: Chronic Plan to address problem: We will monitor Accu-Cheks closely. Patient placed on sliding scale insulin. (3) HTN (hypertension) Current Visit: No Status: Chronic Qualifiers: Hypertension type: unspecified Qualified Code(s): I10 - Essential (primary) hypertension Plan to address problem: We will resume routine home medications and monitor vital signs closely. (4) DVT prophylaxis Current Visit: No Status: Acute Plan to address problem: Patient placed on subcutaneous heparin. (5) Full code status Current Visit: No Status: Acute Plan to address problem: Patient is full code.
[2022-01-24 03:13] LABS: Blood Urea Nitrogen 18 mg/dL (7-17); Calcium 9.3 mg/dL (8.4-10.2); Hemolysis Index 63
[2022-01-24 03:28] LABS: BUN/Creatinine Ratio 30
[2022-01-24] MEDS ORDERED: INSULIN LISPRO 100 UNIT/ML SUB-Q SCH (07:30)
[2022-01-24] MEDS ORDERED: REGADENOSON 0.4 MG/5 ML INJ IV ONE (08:09)
--- NOTE | 2022-01-24 09:28 | Progress Note ---
Assessment and Plan Assessment and plan: -- Chest pain Current Visit: Yes Status: Acute Patient admitted and placed on telemetry. We will check serial cardiac enzymes. Will monitor EKG closely. Patient will be scheduled for stress test. Consult placed to cardiology for evaluation. -- Diabetes mellitus Current Visit: No Status: Chronic We will monitor Accu-Cheks closely. Patient placed on sliding scale insulin. -- HTN (hypertension) Current Visit: No Status: Chronic We will resume routine home medications and monitor vital signs closely. -- DVT prophylaxis Current Visit: No Status: Acute Plan to address problem: Patient placed on subcutaneous heparin. -- Full code status Current Visit: No Status: Acute Plan to address problem: Patient is full code. Hospitalist Physical - Constitutional Vitals: Temp Pulse Resp BP Pulse Ox 98.1 F 99 H 16 121/68 94 01/24/22 07:43 01/24/22 07:43 01/24/22 07:43 01/24/22 07:43 01/24/22 07:43 General appearance: Present: no acute distress, well-nourished HEART Score - HEART Score EKG: Normal Age: 45-65 Risk factors: > 3 risk factors or hx of atherosclerotic disease Troponin: Troponin T < 0.010 ng/mL (0.00-0.029) 01/24/22 07:24 Troponin: < normal limit Results - Labs CBC & Chem 7: 01/23/22 21:14 01/24/22 01:42 Labs: Laboratory Last Values WBC 10.6 K/mm3 (4.5-11.0) 01/23/22 21:14 RBC 4.55 M/mm3 (3.65-5.03) 01/23/22 21:14 Hgb 13.2 gm/dl (10.1-14.3) 01/23/22 21:14 Hct 39.9 % (30.3-42.9) 01/23/22 21:14 MCV 88 fl (79-97) 01/23/22 21:14 MCH 29 pg (28-32) 01/23/22 21:14 MCHC 33 % (30-34) 01/23/22 21:14 RDW 17.3 % (13.2-15.2) H 01/23/22 21:14 Plt Count 472 K/mm3 (140-440) H 01/23/22 21:14 Lymph % (Auto) 25.3 % (13.4-35.0) 01/23/22 21:14 [place] % (Auto) 6.7 % (0.0-7.3) 01/23/22 21:14 Eos % (Auto) 1.8 % (0.0-4.3) 01/23/22 21:14 Baso % (Auto) 1.1 % (0.0-1.8) 01/23/22 21:14 Lymph # (Auto) 2.7 K/mm3 (1.2-5.4) 01/23/22 21:14 [place] # (Auto) 0.7 K/mm3 (0.0-0.8) 01/23/22 21:14 Eos # (Auto) 0.2 K/mm3 (0.0-0.4) 01/23/22 21:14 Baso # (Auto) 0.1 K/mm3 (0.0-0.1) 01/23/22 21:14 Seg Neutrophils % 65.1 % (40.0-70.0) 01/23/22 21:14 Seg Neutrophils # 6.9 K/mm3 (1.8-7.7) 01/23/22 21:14 PT 13.6 Sec. (12.2-14.9) 01/23/22 21:14 INR 0.94 (0.87-1.13) 01/23/22 21:14 APTT 28.3 Sec. (24.2-36.6) 01/23/22 21:14 D-Dimer 278.05 ng/mlDDU (0-234) H 01/23/22 21:14 Sodium 140 mmol/L (137-145) 01/24/22 01:42 Potassium 4.3 mmol/L (3.6-5.0) 01/24/22 01:42 Chloride 99.9 mmol/L (98-107) 01/24/22 01:42 Carbon Dioxide 24 mmol/L (22-30) 01/24/22 01:42 Anion Gap 20 mmol/L 01/24/22 01:42 BUN 18 mg/dL (7-17) H 01/24/22 01:42 Creatinine 0.6 mg/dL (0.6-1.2) 01/24/22 01:42 Estimated GFR > 60 ml/min 01/24/22 01:42 BUN/Creatinine Ratio 30 % 01/24/22 01:42 Glucose 113 mg/dL (65-100) H 01/24/22 01:42 POC Glucose 137 mg/dL (70-105) H 01/24/22 07:41 Calcium 9.3 mg/dL (8.4-10.2) 01/24/22 01:42 Total Bilirubin 0.40 mg/dL (0.1-1.2) 01/23/22 21:14 AST 18 units/L (5-40) 01/23/22 21:14 ALT 13 units/L (7-56) 01/23/22 21:14 Alkaline Phosphatase 125 units/L (35-129) 01/23/22 21:14 Troponin T < 0.010 ng/mL (0.00-0.029) 01/24/22 07:24 Total Protein 7.6 g/dL (6.3-8.2) 01/23/22 21:14 Albumin 4.4 g/dL (3.9-5) 01/23/22 21:14 Albumin/Globulin Ratio 1.4 % 01/23/22 21:14 Ayala/IV: Voiding Method Toilet Active Medications - Current Medications Current Medications: Generic Name Dose Route Start Last Admin Trade Name Freq PRN Reason Stop Dose Admin Acetaminophen 650 mg 01/24/22 01:21 Acetaminophen 325 Mg Tab PO Q4H PRN Pain MILD(1-3)/Fever >100.5/MENA Aspirin 325 mg 01/25/22 10:00 Aspirin Ec 325 Mg Tab PO QDAY GUANAKO Dextrose 0 ml 01/24/22 01:35 Dextrose 10% *Hypoglycemia IV PRN PRN Hypoglycemia Insulin Human Lispro 0 unit 01/24/22 07:30 01/24/22 07:59 Insulin Lispro 100 Unit/Ml SUB-Q Not Given ACHS GUANAKO Protocol Magnesium Hydroxide 30 ml 01/24/22 01:21 Magnesium Hydroxide (Mom) Oral Liqd Udc PO Q4H PRN Constipation Morphine Sulfate 2 mg 01/24/22 01:21 01/24/22 06:54 Morphine 2 Mg/1 Ml Inj IV 2 mg Q4H PRN Administration Pain, Moderate (4-6) Morphine Sulfate 4 mg 01/24/22 01:21 Morphine 4 Mg/1 Ml Inj IV Q4H PRN Pain , Severe (7-10) Morphine Sulfate 2 mg 01/24/22 01:21 Morphine 4 Mg/1 Ml Inj IV Q5MIN PRN Chest Pain unrelieved by NTG Nitroglycerin 0.4 mg 01/24/22 01:21 Nitroglycerin 0.4 Mg Tab Subl SL Q5M PRN Chest Pain Ondansetron HCl 4 mg 01/24/22 01:21 Ondansetron 4 Mg/2 Ml Inj IV Q8H PRN Nausea And Vomiting Sodium Chloride 10 ml 01/24/22 10:00 Sodium Chloride 0.9% 10 Ml Flush Syringe IV BID GUANAKO Sodium Chloride 10 ml 01/24/22 01:21 Sodium Chloride 0.9% 10 Ml Flush Syringe IV PRN PRN LINE FLUSH Tramadol HCl 50 mg 01/24/22 01:21 Tramadol 50 Mg Tab PO Q6H PRN Pain, Moderate (4-6)
--- NOTE | 2022-01-24 11:03 | Consultation ---
History of Present Illness Consult date: 01/24/22 Consult reason: chest pain History of present illness: The patient is a 57-year-old woman with diabetes, hypertension and Crohn's di donal, who recently relocated here from [place], has not yet established medical follow-up in the [place] area. Patient was incarcerated in the [facility] and states that she just got released last night. She presented to the hospital with chest pain. She describes nonexertional, substernal chest pain, with no shortness of breath or palpitations. There is no syncope or edema. She reports that 4 years ago, she underwent chest pain work-up in [place], that culminated in a negative cardiac catheterization. Work-up here so far, serial EKGs show normal sinus rhythm, normal ECG. Troponin levels were negative x3. Chest x-ray showed a normal-sized cardiac silhouette and clear lungs. A stress test was ordered by the medical service, patient exercised for 7 minutes on the treadmill for a peak heart rate of 136, no chest pain, no ST changes of ischemia, myocardial perfusion images are pending for final test interpretation. Past History Past Medical History: COPD, diabetes, hypertension, hyperlipidemia, other (Crohn's Disease) Past Surgical History: , Other (Tonsillectomy,Knee surgery) Social history: smoking (Former Smoker) Family history: no significant family history Medications and Allergies Allergies Allergy/AdvReac Type Severity Reaction Status Date / Time hydromorphone [From Dilaudid] Allergy Hives Verified 08/17/21 08:39 ketorolac [From Toradol] Allergy Hives Verified 08/17/21 08:39 Sulfa (Sulfonamide Allergy Hives Verified 08/17/21 08:39 Antibiotics) Home Medications Medication Instructions Recorded Confirmed Last Taken Type Acetaminophen [Acetaminophen TAB] 650 mg PO Q4H PRN tablet 09/22/20 01/24/22 Unknown Rx Amitriptyline [Elavil] 25 mg PO QHS #30 tab 10/11/20 01/24/22 Unknown Rx metFORMIN [Glucophage] 500 mg PO QDAY #30 tab 10/11/20 01/24/22 Unknown Rx Loratadine [Claritin] 10 mg PO DAILY #30 tablet 02/16/21 01/24/22 Unknown Rx Isosorbide Dinitrate [Isordil 5 mg PO BID #60 tablet 04/06/21 01/24/22 Unknown Rx Titradose] Albuterol Sulfate [Proventil Hfa] 1 inhalation IH TID PRN #1 11/16/21 01/24/22 Unknown Rx hfa.[email or web address] Fluticasone [Flonase] 1 spray NS QDAY #1 bottle 11/16/21 01/24/22 Unknown Rx Ipratropium/Albuterol Sulfate 1 ampul IH Q6HRT #120 ampul.neb 11/16/21 01/24/22 Unknown Rx [DUONEB *Not for PRN Use*] predniSONE 20 mg PO QDAY #10 tab 11/16/21 01/24/22 Unknown Rx Active Meds: Active Medications Acetaminophen (Acetaminophen 325 Mg Tab) 650 mg PO Q4H PRN PRN Reason: Pain MILD(1-3)/Fever >100.5/MENA Aspirin (Aspirin Ec 325 Mg Tab) 325 mg PO QDAY GUANAKO Dextrose (Dextrose 10% *Hypoglycemia) 0 ml IV PRN PRN PRN Reason: Hypoglycemia Insulin Human Lispro (Insulin Lispro 100 Unit/Ml) 0 unit SUB-Q ACHS GUANAKO; Protocol Last Admin: 01/24/22 07:59 Dose: Not Given Magnesium Hydroxide (Magnesium Hydroxide (Mom) Oral Liqd Udc) 30 ml PO Q4H PRN PRN Reason: Constipation Morphine Sulfate (Morphine 2 Mg/1 Ml Inj) 2 mg IV Q4H PRN PRN Reason: Pain, Moderate (4-6) Last Admin: 01/24/22 06:54 Dose: 2 mg Morphine Sulfate (Morphine 4 Mg/1 Ml Inj) 4 mg IV Q4H PRN PRN Reason: Pain , Severe (7-10) Morphine Sulfate (Morphine 4 Mg/1 Ml Inj) 2 mg IV Q5MIN PRN PRN Reason: Chest Pain unrelieved by NTG Nitroglycerin (Nitroglycerin 0.4 Mg Tab Subl) 0.4 mg SL Q5M PRN PRN Reason: Chest Pain Ondansetron HCl (Ondansetron 4 Mg/2 Ml Inj) 4 mg IV Q8H PRN PRN Reason: Nausea And Vomiting Sodium Chloride (Sodium Chloride 0.9% 10 Ml Flush Syringe) 10 ml IV BID GUANAKO Sodium Chloride (Sodium Chloride 0.9% 10 Ml Flush Syringe) 10 ml IV PRN PRN PRN Reason: LINE FLUSH Tramadol HCl (Tramadol 50 Mg Tab) 50 mg PO Q6H PRN PRN Reason: Pain, Moderate (4-6) Review of Systems Cardiovascular: chest pain, no orthopnea, no palpitations, no rapid/irregular heart beat, no edema, no syncope, no lightheadedness, no shortness of breath Physical Examination Vital Signs Temp Pulse Resp BP Pulse Ox 8 F L 104 H 18 137/101 99 01/23/22 20:40 01/23/22 20:40 01/23/22 20:40 01/23/22 20:40 01/23/22 20:40 General appearance: no acute distress HEENT: Positive: PERRL Neck: Positive: neck supple Cardiac: Positive: Reg Rate and Rhythm Lungs: Positive: Decreased Breath Sounds Neuro: Positive: Grossly Intact Abdomen: Positive: Soft Female genitourinary: deferred Skin: Positive: Clear Extremities: Absent: edema Results 01/23/22 21:14 01/24/22 01:42 Cardiac Enzymes 01/23/22 Range/Units 21:14 AST 18 (5-40) units/L Coagulation 01/23/22 Range/Units 21:14 PT 13.6 (12.2-14.9) Sec. INR 0.94 (0.87-1.13) APTT 28.3 (24.2-36.6) Sec. CBC 01/23/22 Range/Units 21:14 WBC 10.6 (4.5-11.0) K/mm3 RBC 4.55 (3.65-5.03) M/mm3 Hgb 13.2 (10.1-14.3) gm/dl Hct 39.9 (30.3-42.9) % Plt Count 472 H (140-440) K/mm3 Lymph # (Auto) 2.7 (1.2-5.4) K/mm3 [place] # (Auto) 0.7 (0.0-0.8) K/mm3 Eos # (Auto) 0.2 (0.0-0.4) K/mm3 Baso # (Auto) 0.1 (0.0-0.1) K/mm3 Comprehensive Metabolic Panel 01/23/22 01/24/22 Range/Units 21:14 01:42 Sodium 140 140 (137-145) mmol/L Potassium 4.3 4.3 (3.6-5.0) mmol/L Chloride 100.9 99.9 (98-107) mmol/L Carbon Dioxide 22 24 (22-30) mmol/L BUN 19 H 18 H (7-17) mg/dL Creatinine 0.6 0.6 (0.6-1.2) mg/dL Glucose 96 113 H (65-100) mg/dL Calcium 9.3 9.3 (8.4-10.2) mg/dL AST 18 (5-40) units/L ALT 13 (7-56) units/L Alkaline Phosphatase 125 (35-129) units/L Total Protein 7.6 (6.3-8.2) g/dL Albumin 4.4 (3.9-5) g/dL EKG interpretations - Telemetry EKG Rhythm: Sinus Rhythm (Normal ECG) Assessment and Plan - Patient Problems (1) Chest pain Current Visit: Yes Status: Acute Plan to address problem: Patient's chest pain is atypical, serial ECG showed normal sinus rhythm, normal ECG, serial troponin levels x3 were normal. She underwent an exercise thallium stress test during which she exercised for 7 minutes, no chest pain and no ST changes of ischemia. Myocardial perfusion images are pending for final test interpretation.
[2022-01-24 11:11] VITALS: BP 139/87
--- NOTE | 2022-01-24 13:35 | Nuclear Medicine Report ---
APPROVED REPORT Exam: Nuclear Stress Test Indication: Chest pain [facility] Ht: 5 ft 4 in Wt: 183 lbs BSA: 1.88 m2 HR: 93 bpmBP: 136/96 mmHgBMI: 31.40 Rhythm: sinus rhythm Stress Test Details HR Resting HR: 93 bpm Max HR Achieved: 136 bpm Max Heart Rate (APMHR): 163 bpm Target HR (85% APMHR): 138 bpm % of APMHR: 83 Recovery HR: 103 bpm BP Resting BP: 136/96 mmHg Max BP: 150/98 mmHg Recovery BP: 132/86 mmHg ECG Resting ECG: Sinus Rhythm Stress ECG: Sinus Tachycardia ST Change: None Arrhythmia: None Recovery ECG: SINUS TACHYCARDIA Recovery ST Change: None Recovery Arrhythmia: None Clinical Stress Symptoms: None Exercise duration: 7 min 1 sec Exercise capacity: 6.2 METs Stress ECG Conclusion No chest pain, no ST changes with exercise to 7 minutes, protocol was held in stage II. Myocardial perfusion images are pending for final test interpretation. NM EXAM: Myocardial Perfusion REST/STRESS Imaging Protocol: Rest Tc-99m/Stress Tc-99m 1 day Resting Data Rest SPECT myocardial perfusion imaging was performed in supine position 45 minutes following the intravenous injection of 10 mCi of Tc-99m Myoview. Time of rest injection: 0710 Date: 01/24/2022 Exercise Stress At peak stress, the patient was injected intravenously with 28mCi of Tc-99m Myoview. Time of stress injection: 1027 Date: 01/24/2022 Gated Stress SPECT was performed 30 minutes after stress injection. The images were gated to evaluate regional wall motion and calculate left ventricular ejection fraction. Study Data TID = 0.91. Perfusion Wall Motion Normal left ventricular systolic function, ejection fraction 75%. Nuclear Conclusion ECG Findings: negative for ischemia Clinical Findings: negative for ischemia Nuclear Findings: negative for ischemia Exercise Capacity: normal Left Ventricular Function: normal Risk Study: low Normal rest and stress myocardial perfusion images, no defects identified. Normal study. Conclusion No chest pain, no ST changes with exercise to 7 minutes, protocol was held in stage II. Myocardial perfusion images are pending for final test interpretation.
--- NOTE | 2022-01-24 14:28 | Discharge Summary ---
Providers - Providers Date of Admission: 01/24/22 01:22 Date of discharge: 01/24/22 Attending physician: DYLAN LANIER 01/24/22 Consult to Cardiac Rehabilitation [CONS] Routine Reason For Exam: Phase I 01/24/22 01:22 Consult to Cardiology [CONS] Routine Consulting Provider: MARYAM MORRIS Reason For Exam: chest pain Consult to Dietitian/Nutrition [CONS] Routine Physician Instructions: Reason For Exam: Reason for Consult: Diet education Primary care physician: BACK PAD INSPECTOR Hospitalization Condition: Stable Disposition: 07 LEFT AGAINST MEDICAL ADVICE Exam - Constitutional Vitals: Temp Pulse Resp BP Pulse Ox 98.1 F 101 H 16 139/87 94 01/24/22 07:43 01/24/22 11:49 01/24/22 07:43 01/24/22 10:46 01/24/22 07:43 Plan Follow up with: PRIMARY MD NAREN [Primary Care Provider] - 3-5 Days Forms: AMA Form
[2022-01-25] MEDS ORDERED: ASPIRIN EC 325 MG TAB PO SCH (10:00)
--- NOTE | 2022-01-26 13:07 | Electrocardiograph Report ---
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
--- NOTE | 2022-01-26 13:08 | Electrocardiograph Report ---
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
== END 2022-01-24 13:54 | disposition left against medical advice (07) | DRG 313 ==
LOC: ED 20:04 → EEVIPCON 01-24 01:22 → 4A 01-24 01:22
PROVIDERS: ADMIT Internal Medicine Geriatric Medicine; ATTEND Internal Medicine
DX: R07.89 Other chest pain (principal); E11.9 Type 2 diabetes mellitus without complications; K50.90 Crohn's disease, unspecified, without complications; I25.10 Atherosclerotic heart disease of native coronary artery without angina pectoris; E78.00 Pure hypercholesterolemia, unspecified; I10 Essential (primary) hypertension; J44.9 Chronic obstructive pulmonary disease, unspecified; E78.5 Hyperlipidemia, unspecified; Z88.2 Allergy status to sulfonamides; Z88.1 Allergy status to other antibiotic agents; Z86.79 Personal history of other diseases of the circulatory system; Z88.5 Allergy status to narcotic agent; Z88.8 Allergy status to other drugs, medicaments and biological substances; Z87.891 Personal history of nicotine dependence
CPT/HCPCS: 36415; 71045; 78452; 80048; 80053; 82962; 84484; 85025; 85379; 85610; 85730; 93005; 93010; 93017; 93306; 93970; G0378; A9502; C8929; J1200; J2270; J2405